=== PATIENT | female | born 1945 | race Caucasian/White ===

== ENCOUNTER 2018-06-24 08:33 | Outpatient (CLI) | payer MEDICARE, BC, SELFPAY ==
[2018-06-24 11:28] LABS: ALT 21 U/L (12-78); AST 15 U/L (15-37); Albumin 3.6 g/dL (3.4-5.0); Alkaline Phosphatase 102 U/L (46-116); Anion Gap 9.4 mmol/L (3-11); BUN 21 mg/dL (7-18); Bilirubin, Total 0.4 mg/dL (0.2-1.0); CO2 27.6 mmol/L (21.0-32.0); CREATININE 0.94 mg/dL (0.55-1.02); Chloride 103 mmol/L (98-107); Cholesterol 219 mg/dL (50-200); Estimated GFR 58.53 (mL/min/1.73m2); Glucose 89 mg/dL (70-100); HDL Cholesterol 56 mg/dL (40-60); LDL CHOLESTEROL 145 mg/dL (<100); Potassium 4.9 mmol/L (3.5-5.1); Sodium 140 mmol/L (136-145); Total Protein 6.8 g/dL (6.4-8.2); Triglyceride 85 mg/dL (30-150)
== END 2018-06-24 08:53 ==
PROVIDERS: PCP Physician Assistant Medical; Visit Provider Physician Assistant Medical
DX: E78.5 Hyperlipidemia, unspecified (principal); I10 Essential (primary) hypertension
CPT/HCPCS: 36415; 80053; 80061; 83721

== ENCOUNTER 2018-07-23 00:21 | Outpatient (CLI) | payer MEDICARE, BC, SELFPAY ==
--- NOTE | 2018-07-23 08:55 | DI.MAMMO_ITS ---
SYMPTOMS/DIAGNOSIS: SCREENING, HEALTH MAINTENANCE EXAM, Z00.8 MAMMOGRAM: Mammograms were interpreted according to the usual protocol including computer analysis with CAD system, tomosynthesis and C view imaging. The breasts are of moderate density with fairly symmetrical distribution of fibroglandular tissue. No dominant mass or clumped microcalcification is identified in either breast. Current examination is compared with the previous examinations including July 2017 and there has been no gross interval change in appearance in comparison with the previous studies. CONCLUSION: No specific evidence of malignancy at this time. Routine screening examinations are suggested at yearly intervals due to the family history of breast carcinoma. Category 1, breast density category B. MQSA ASSESSMENT OF FINDINGS: Negative. Category 1. Patient will receive a letter notifying them of these results. BI-RADS category B. There are scattered areas of fibroglandular density.
== END 2018-07-23 00:41 ==
PROVIDERS: PCP Physician Assistant Medical; Visit Provider Physician Assistant Medical
DX: Z12.31 Encounter for screening mammogram for malignant neoplasm of breast (principal); Z80.3 Family history of malignant neoplasm of breast
CPT/HCPCS: 77063; 77067

== ENCOUNTER 2019-01-15 14:39 | Emergency (ER) | payer MEDICARE, BC, SELFPAY ==
[2019-01-15] VITALS (15 sets, daily range): BP systolic 127–185; BP diastolic 73–96; PULSE 69–93; RESP 16–18; TEMP 37.1; O2SAT 95–100
[2019-01-15] MEDS: Ondansetron 4 MG/2 ML VIAL IVP (15:00)
[2019-01-15] MEDS: Acetaminophen 325 MG TAB 650 MG PO (15:40)
[2019-01-15] MEDS: Ketorolac 15 MG/ML VIAL IVP (15:40)
[2019-01-15] MEDS: fentaNYL 100 MCG/2 ML VIAL IVP (15:44)
--- NOTE | 2019-01-15 15:51 | ED.GENADUL_ITS ---
Discharge Plan Disposition Patient Disposition: HOME Condition: Improving Discharge Details Chief Complaint: Trauma Clinical Impression: Closed fracture of left clavicle, Multiple fractures of ribs, left side, initial encounter for closed fracture Primary Care Provider: Darlin Puckett ED Provider: Ian Ruiz Home Meds and New Rx's Prescriptions: New hydrocodone-acetaminophen 5-325 mg tablet 1 tab PO Q6H PRN (Reason: pain) Qty: 7 RF: 0 Continued simvastatin 40 MG tablet 40 mg PO .OTHER DAY RF: 0 omeprazole 20 MG capsule,delayed release(DR/EC) 20 mg PO DAILY RF: 0 cholecalciferol (vitamin D3) 1,000 UNIT tablet 1,000 unit PO BID RF: 0 calcium carbonate-vitamin D3 [Calcarb 600 With Vitamin D] 1 EACH tablet 1 ea PO BID RF: 0 Adults' Daily Formula (folic) 1 EACH tablet 1 tab-cap PO DAILY RF: 0 losartan [Cozaar] 50 MG tablet 50 mg PO DAILY RF: 0 Zyrtec 10 MG capsule 10 mg PO DAILY RF: 0 sertraline 100 MG tablet 1 tab PO DAILY RF: 0 ibuprofen [Advil] 200 MG tablet 600 mg PO DAILY RF: 0 Discharge Instructions Instructions: Clavicle Fracture (ED), Rib Fracture (ED) Additional Instructions: Use incentive spirometer as discussed with respiratory therapy. Wear sling when out of bed, may remove for bathing. We will make you follow-up referrals for both primary care and orthopedics. May use your prescribed Advil as needed for pain with either Tylenol or the prescribed hydrocodone if needed for additional pain control. Return for worsening discomfort, shortness of breath, fever, or any other acute concerns Discharge Data Discharge Date/Time-TO BE ENTERED AT DEPARTURE: 01/15/19 19:39 Medical Decision Making <YULIET Hodges - Last Filed: 01/16/19 19:09> Patient is a pleasant 73-year-old presenting today with chief complaint left shoulder pain. She reports that she jumped from a lawnmower that was rolling over. Landed on the left shoulder. Patient is endorsing left shoulder pain. She has a deformity along the midshaft clavicle. This is area of maximal discomfort. She also has has pain to palpation along the left lateral ribs. No palpable deformity or ecchymosis. Patient has a superficial abrasion to the right medial thigh and ecchymosis to the dorsum of the left foot. Patient is full range of motion of the neck, no midline tenderness. No spinal tenderness on exam. No abdominal pain. Lungs are clear in all urias. Remaining extremity exam is normal. Neuro exam is intact. Patient has good extension of the wrist on the affected side, sensation is intact. Plan to obtain x-rays of the patient's clavicle and CT of chest/ab/pelvis. Discussed this plan with the patient is in agreement Patient received 100 mics of fentanyl and continues to have pain particular with movement. We are able to stand her to use the restroom and is in the shoulder, she did quite well. We will augment this with Toradol and Tylenol. At the end of my shift, care transitioned to Dr. Ruiz with imaging pending. <Ian Ruiz MD - Last Filed: 01/15/19 20:35> I received signout from Ms. Hernandez pending receipt of images. Patient has a left clavicle fracture and left fifth and sixth rib fractures. Pain improving but still significant with movement. Anesthesia consulted for regional anesthesia to which the patient consented with good outcome. Patient will require a mild amount of narcotic analgesia for home. Incentive spirometry provided with instruction. She also has a 10 mm apical lung nodule for which we will make her a follow-up in clinic in which will need an interval recheck. She is stable and improved, appropriate discharge to home. HPI <YULIET Hodges - Last Filed: 01/16/19 19:09> General Mode of arrival: EMS . Date/Time Provider Initiated Documentation: 01/15/19 14:43 . Limitations to Documentation: no limitations . Information obtained by: patient, EMS and RN notes reviewed . HPI Narrative: Patient 73-year-old [id number] female presenting today with chief complaint of left shoulder pain. She is brought in via EMS after jumping off of her one more. Patient reports she was mowing her lawn when the lawnmower began to roll over an embankment. She jumped to the contralateral side and landed on her left shoulder. She denies striking her head, no loss conscious. Denies any headache. No visual changes. Denies any numbness or weakness. No incontinence. Patient denies pain elsewhere. EMS reports that patient has been splinting the left arm. She has refused to move the left arm. She denies any chest pain shortness of breath. No nausea or vomiting. No previous history of surgery or injury to this left shoulder Related Data Home Medications Medication Instructions Recorded Confirmed Adults' Daily Formula (folic) 1 tab-cap PO DAILY tab-cap 12/03/12 01/15/19 calcium carbonate-vitamin D3 1 ea PO BID 12/03/12 01/15/19 [Calcarb 600 With Vitamin D] cholecalciferol (vitamin D3) 1,000 unit PO BID 12/03/12 01/15/19 omeprazole 20 mg PO DAILY tab-cap 12/03/12 01/15/19 simvastatin 40 mg PO .OTHER DAY 12/03/12 01/15/19 Zyrtec 10 mg PO DAILY 08/09/17 01/15/19 losartan [Cozaar] 50 mg PO DAILY tab-cap 08/09/17 01/15/19 sertraline 1 tab PO DAILY 09/05/17 01/15/19 ibuprofen [Advil] 600 mg PO DAILY 09/09/17 01/15/19 hydrocodone-acetaminophen 1 tab PO Q6H PRN #7 tab 01/15/19 Previous Rx's Medication Instructions Recorded hydrocodone-acetaminophen 1 tab PO Q6H PRN #7 tab 01/15/19 Allergies Allergy/AdvReac Type Severity Reaction Status Date / Time hydromorphone AdvReac Severe severe Unverified 01/15/19 14:48 vomiting Review of Systems <YULIET Hodges - Last Filed: 01/16/19 19:09> Constitutional Reports as per HPI, Denies chills, Denies fatigue, Denies fever(s), Denies headache(s) and Denies weakness Eyes Reports as per HPI, Denies blurry vision, Denies change in vision and Denies loss of vision ENT Denies abnormal hearing and Denies headache(s) Cardiovascular Reports as per HPI, Denies chest pain and Denies dyspnea Respiratory Reports as per HPI, Denies cough, Denies pain on inspiration, Denies pain with cough and Denies dyspnea Gastrointestinal Reports as per HPI, Denies abdominal pain, Denies nausea and Denies vomiting Genitourinary Reports as per HPI and Denies urinary incontinence Musculoskeletal Reports as per HPI Integumentary/Breasts Reports as per HPI and Denies rash Neurologic Reports as per HPI, Denies abnormal hearing, Denies abnormal movements, Denies abnormal speech, Denies headache(s), Denies lack of coordination, Denies focal weakness, Denies loss of vision, Denies seizure-like activity, Denies paresthesias and Denies weakness Endocrine Denies fatigue PFSH <YULIET Hodges - Last Filed: 01/16/19 19:09> Medical History Benign hypertension Depression Gastroesophageal reflux disease Hyperlipidemia Osteoarthritis of knees, bilateral Osteoporosis Squamous cell carcinoma in situ of skin Surgical History Appendectomy Cholecystectomy Colonoscopy - MAC (09/09/17) Fracture, Closed Treatment (08/20/11) Fracture, Open Treatment (09/05/12) Ligation of fallopian tube Social History Smoking/Tobacco Use Status: Former Tobacco Use Alcohol Intake: never Drug use: Never Do you feel safe at home: Yes Do you feel safe in your relationship?: Yes Exam <YULIET Hodges - Last Filed: 01/16/19 19:09> Const General: cooperative, healthy appearing, uncomfortable (Patient appears unc omfortable, splinting left), no acute distress, well developed and well groomed Nutritional Appearance: well nourished and overweight Orientation: alert, awake and oriented x3 HENMT Head: normal to inspection, no palpable skull fracture, normocephalic and atraumatic Ears: hearing grossly normal bilaterally, external ears normal and TM's normal bilaterally General nose exam: external nose normal Mouth: oral mucosae normal, lip normal and tongue normal Throat: posterior oropharynx normal Eyes General: appearance normal, both eyes and all related structures Visual Urias: normal visual urias by confrontation Alignment and Position: alignment normal Periorbital: periorbital findings normal Eyelids: eyelids normal Conjunctivae: conjunctivae normal Pupils: PERRL EOM: EOM intact bilaterally Neck Neck: normal visual inspection, full ROM, no lymphadenopathy, no meningeal signs, trachea midline and supple Chest Chest: normal inspection of the chest, normal palpation of entire chest wall, no crepitus and localized rib tenderness with anteroposterior compression (Patient is tenderness on the left side of her chest wall, no crepitus, ecch) Resp Effort & Inspection: normal respiratory effort, able to speak in complete sentences and no respiratory distress Auscultation: clear to auscultation bilaterally, no rales, no rhonchi and no wheezes Cardio Rate: regular rate Rhythm: regular rhythm Heart Sounds: S1 normal and S2 normal GI Inspection: normal to inspection, no abdominal wall ecchymosis, no edema and non-distended Palpation: soft, no hepatosplenomegaly, not firm, no guarding, no pulsatile masses, not rigid and nontender Auscultation: normal bowel sounds Back/Spine/Pelvis Back: no CVA tenderness Cervical Spine: normal cervical lordosis and cervical ROM normal Thoracic/Lumbar Spine: thoracic and lumbar spine normal to inspection, thoraco- lumbar ROM normal, No thoraco-lumbar ROM limited, No thoraco-lumbar spasm and No thoracic spinal tenderness Pelvis: no pain with anterior-posterior compression and no pain with lateral compression Skin General skin exam: ecchymosis (Dorsal aspect left foot) Trauma: abrasion (Abrasion to the medial right thigh) Neuro General: alert, awake, oriented x3, gait normal, tone normal and moves all extremities Cranial Nerves: CN's II-XI intact bilaterally Cognition: normal cognition Speech: speech normal Gait: normal gait Motor: muscle tone normal throughout, strength 5/5 throughout, no pronator drift and no fasciculations Sensory Exam: no sensory deficits noted (no saddle paresthesias) Extrem General: normal capillary refill, no pedal edema and no calf tenderness Left upper extremity: normal capillary refill, shoulder/upper arm Details: abnormal to inspection Details: clavicle deformity, tenderness Location: of the clavicle; not of the A-C joint, not of the proximal humerus, not of the scapula, not of the mid-shaft humerus, not over the coracoid process, not over the biceps tendon, not over the subacromial bursa and not over the deltoid bursa, swelling Location: of the clavicle, axillary nerve sensory function normal and deformity; ROM limited (Limited shoulder), no abrasions, no lacerations, no ecchymosis, no crepitus, no foreign bodies, no penetrating wound and no unsual warmth, elbow/forearm Details: normal to inspection, wrist Details: normal to inspection and hand Details: normal to inspection, neuromotor exam normal and neurosensory exam normal; ROM limited (Patient splinting the left shoulder adduction) Right lower extremity: full ROM, normal capillary refill and no joint enlargement; abnormal to inspection (abrasion as above, no other abnormality) Left lower extremity: full ROM, normal capillary refill and no joint enlargement; abnormal to inspection (ecchymosis as above) Psych Appearance: grossly normal and well kempt Mental Status: mental status grossly normal Speech and Movement: speech and movement normal Sign Out <YULIET Hodges - Last Filed: 01/16/19 19:09> Sign Out Data: Sign Out Comment: care transitioned to Dr. Ruiz with imaging pending. Last updated by Henrietta Hernandez PA at 01/15/19 15:51
--- NOTE | 2019-01-15 16:05 | DI.RAD_ITS ---
SYMPTOM/DIAGNOSIS: TRAUMA, PALPABLE DEFECT LEFT CLAVICLE: There is a mid clavicle fracture which shows some comminution as well as overriding of fracture fragments. The AC joint and glenohumeral joint are grossly unremarkable except for degenerative spurring. IMPRESSION: Mid clavicle fracture.
--- NOTE | 2019-01-15 16:20 | DI.CT_ITS ---
SYMPTOM/DIAGNOSIS: TRAUMA, PAIN CHEST,. ABDOMEN AND PELVIS CT: The exam was performed without oral or IV contrast. CHEST: There is no evidence of pneumothorax, pleural or pericardial effusion. There is a fracture of the posterior left fifth rib and fracture of the lateral left sixth rib. There is a comminuted fracture in the mid left clavicle. There is a mild compression deformity of T 6 which is likely old. Degenerative changes are also seen in the spine. Streaky densities are seen in the lingula consistent with atelectasis. There is a more nodular density seen in the posterior aspect of the left upper lobe measuring 10 mm. The findings could be infectious, inflammatory or neoplastic. Follow up is recommended. IMPRESSION: Left fifth and sixth rib fractures and left clavicle fracture. No pneumothorax. Left upper lobe nodule may represent an inflammatory, infectious or neoplastic change. A follow up exam is recommended. ABDOMEN AND PELVIS: The patient is status post cholecystectomy. The liver, spleen, pancreas and adrenals are unremarkable. There is no free air or free fluid. The left kidney is smaller than the right and contains non obstructing stones. There is compensatory hypertrophy of the right kidney. The uterus, ovaries and bladder are unremarkable. There is no bowel dilatation or inflammatory change. No acute fractures are identified. Degenerative changes are noted in the spine. The aorta shows mild atherosclerotic changes. IMPRESSION: No acute abnormality.
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
[2019-01-15] MEDS: HYDROcodone 5/Acetaminophen 325 TAB PO ×2 (17:27→21:26)
[2019-01-15] MEDS: Bupivacaine 0.25% Pres-Free 10 ML VIAL (20:03)
[2019-01-15] MEDS: Bupivacaine LIPOSOME/PF 133 MG/10 ML VIAL IJ (20:13)
--- NOTE | 2019-01-16 08:15 | PDOC.ERCMPRO ---
Care Management Progress Note 01/16-Dr. Ruiz requested assistance with a PCP ([facility]) f/u in 10 days for 10 mm left lung module. Referral faxed to [facility] this am.
== END 2019-01-15 19:39 | disposition home or self-care (01) ==
PROVIDERS: Emergency Provider Emergency Medicine; PCP Physician Assistant Medical
DX: S22.42XA Multiple fractures of ribs, left side, initial encounter for closed fracture (principal); S42.022A Displaced fracture of shaft of left clavicle, initial encounter for closed fracture; W01.0XXA Fall on same level from slipping, tripping and stumbling without subsequent striking against object, initial encounter; I10 Essential (primary) hypertension
CPT/HCPCS: 71250; 96374; 96375; 99285; 73000; 74176; 99284; J1885; J2405; J3010; L3650

== ENCOUNTER 2019-01-29 09:08 | Outpatient (CLI) | payer MEDICARE, BC, SELFPAY ==
--- NOTE | 2019-01-29 09:03 | DI.RAD_ITS ---
SYMPTOMS/DIAGNOSIS: FRACTURE FOLLOW UP LEFT CLAVICLE: A comminuted displaced mid shaft fracture of the left clavicle is demonstrated with overriding of the fracture fragments.
== END 2019-01-29 09:28 ==
PROVIDERS: PCP Physician Assistant Medical; Referring Provider Physician Assistant Medical; Visit Provider Orthopaedic Surgery
DX: S42.022D Displaced fracture of shaft of left clavicle, subsequent encounter for fracture with routine healing (principal); X58.XXXD Exposure to other specified factors, subsequent encounter
CPT/HCPCS: 99211; 99213; 73000

== ENCOUNTER 2019-02-26 09:25 | Outpatient (CLI) | payer MEDICARE, BC, SELFPAY ==
--- NOTE | 2019-02-26 09:14 | DI.RAD_ITS ---
SYMPTOM/DIAGNOSIS: F/U LEFT CLAVICLE: 02/26 A single view was obtained and shows previously described mid-clavicular fracture with little if any interval change in alignment of the fracture fragments, comparison with examination of Jan 29 2019. There is little visible callus at the fracture site.
== END 2019-02-26 09:45 ==
PROVIDERS: PCP Physician Assistant Medical; Referring Provider Physician Assistant Medical; Visit Provider Orthopaedic Surgery
DX: S42.022A Displaced fracture of shaft of left clavicle, initial encounter for closed fracture (principal); X58.XXXA Exposure to other specified factors, initial encounter; I10 Essential (primary) hypertension
CPT/HCPCS: 99213; 73000

== ENCOUNTER 2019-04-09 11:25 | Outpatient (CLI) | payer MEDICARE, BC, SELFPAY ==
--- NOTE | 2019-04-09 08:37 | DI.RAD_ITS ---
SYMPTOM/DIAGNOSIS: F/U LEFT CLAVICLE: Two views were obtained and show a previously described comminuted, moderately displaced clavicular fracture with no gross interval change in alignment of the fracture fragments in comparison with previous examination of 02/26. There appears to be faint callous formation at the fracture site.
== END 2019-04-09 11:45 ==
PROVIDERS: PCP Physician Assistant Medical; Visit Provider Orthopaedic Surgery
DX: S42.002A Fracture of unspecified part of left clavicle, initial encounter for closed fracture (principal); X58.XXXA Exposure to other specified factors, initial encounter
CPT/HCPCS: 99213; 73000

== ENCOUNTER 2019-04-23 00:50 | Outpatient (CLI) | payer MEDICARE, BC, SELFPAY ==
[2019-04-23 14:19] LABS: CREATININE 1.11 mg/dL (0.55-1.02); Estimated GFR 48.18 (mL/min/1.73m2)
[2019-04-23] MEDS: Omnipaque 350 MG/ML 100 ML BTL IJ (14:35)
--- NOTE | 2019-04-23 15:00 | DI.CT_ITS ---
SYMPTOMS/DIAGNOSIS: PULMONARY NODULE, R91.1 CT SCAN OF THE CHEST: CT scan of the chest was performed following the uneventful administration of intravenous contrast material. Comparison examination is 01/15/19. The thoracic aorta is of normal caliber. The heart size is within normal limits. No significant pericardial effusion is seen. Coronary artery calcifications are present. No significant thoracic adenopathy is identified. There is no pleural effusion or pneumothorax. The esophagus is grossly unremarkable. There is scarring or atelectasis in the medial aspect of the right middle lobe and the left lingula. The nodular opacity in the left upper lobe has completely resolved. No pulmonary nodules are identified. The tracheobronchial tree is unremarkable. There is again seen a comminuted fracture of the left clavicle and multiple healing and healed left rib fractures. Age-related degenerative changes are seen in the spine. The nodularity seen of the left adrenal gland is unchanged. IMPRESSION: 1. Resolution of the left upper lobe nodular infiltrate. 2. No pulmonary nodules. 3. Healing and healed left clavicular and numerous left rib fractures.
== END 2019-04-23 01:10 ==
PROVIDERS: PCP Physician Assistant Medical; Visit Provider Physician Assistant Medical
DX: R91.1 Solitary pulmonary nodule (principal)
CPT/HCPCS: 71260; 82565; J3490

== ENCOUNTER 2019-05-06 11:53 | Outpatient (CLI) | payer MEDICARE, BC, SELFPAY ==
--- NOTE | 2019-05-06 11:21 | DI.RAD_ITS ---
SYMPTOMS/DIAGNOSIS: F/U FRACTURE LEFT CLAVICLE: Comparison is made with January,. There has been increased callus formation around the comminuted clavicle fracture. The alignment is unchanged when compared with the previous exam.
== END 2019-05-06 12:13 ==
PROVIDERS: PCP Physician Assistant Medical; Referring Provider Physician Assistant Medical; Visit Provider Orthopaedic Surgery
DX: S42.022A Displaced fracture of shaft of left clavicle, initial encounter for closed fracture (principal); X58.XXXA Exposure to other specified factors, initial encounter
CPT/HCPCS: 99213; 73000

== ENCOUNTER 2019-06-22 09:14 | Outpatient (REF) | payer MEDICARE, BC, SELFPAY ==
[2019-06-22 22:24] LABS: ALT 22 U/L (14-59); AST 17 U/L (15-37); Albumin 3.6 g/dL (3.4-5.0); Alkaline Phosphatase 126 U/L (46-116); Anion Gap 10.1 mmol/L (3-11); BUN 20 mg/dL (7-18); Bilirubin, Total 0.4 mg/dL (0.2-1.0); CO2 26.9 mmol/L (21.0-32.0); Calculated LDL 127 mg/dL; Chloride 105 mmol/L (98-107); Cholesterol 197 mg/dL (50-200); Estimated GFR 54.35 (mL/min/1.73m2); Glucose 95 mg/dL (70-100); HDL Cholesterol 48 mg/dL (40-60); Potassium 4.6 mmol/L (3.5-5.1); Sodium 142 mmol/L (136-145); Total Protein 6.8 g/dL (6.4-8.2); Triglyceride 114 mg/dL (30-150)
== END 2019-06-22 09:34 ==
LOC: NCHCN 09:14
PROVIDERS: PCP Physician Assistant Medical; Visit Provider Physician Assistant Medical
DX: E78.5 Hyperlipidemia, unspecified (principal); I10 Essential (primary) hypertension
CPT/HCPCS: 80053; 80061

== ENCOUNTER 2019-07-07 10:10 | Outpatient (CLI) | payer MEDICARE, BC, SELFPAY ==
--- NOTE | 2019-07-07 09:04 | DI.RAD_ITS ---
EXAM: XR CLAVICLE LT INDICATION: f/u fracture. COMPARISON: XR CLAVICLE LT from 05/06/2019 TECHNIQUE: 2D digital imaging was performed. FINDINGS: There has been no change in the alignment of the comminuted mid clavicle fracture. There is increase d callus formation. Spurring is again noted at the AC joint.
== END 2019-07-07 10:30 ==
PROVIDERS: PCP Physician Assistant Medical; Visit Provider Orthopaedic Surgery
DX: S42.022D Displaced fracture of shaft of left clavicle, subsequent encounter for fracture with routine healing (principal); X58.XXXD Exposure to other specified factors, subsequent encounter
CPT/HCPCS: 99213; 73000

== ENCOUNTER 2019-07-24 01:14 | Outpatient (CLI) | payer MEDICARE, BC, SELFPAY ==
--- NOTE | 2019-07-24 09:13 | DI.MAMMO_ITS ---
EXAM: MG MAMMO SCREENING CLINICAL HISTORY: HEALTHCARE MAINTENANCE EXAM Z00.8, SCREENING TECHNIQUE: Bilateral full field digital CC and MLO mammographic images were obtained with 3D tomosyn thesis and utilizing computer aided detection (CAD). COMPARISON: Available for comparison. FINDINGS: Masses/Architectural Distortion: None seen. Microcalcifications: No suspicious pleomorphic-type are seen. Skin Thickening/Nipple Retraction: None. IMPRESSION: 1. No significant interval change with no specific features of malignancy noted. 2. Unless there is more urgent need, screening mammography is recommended, as per [employer] guidelines. ACR BI-RAD Category- 1 Negative Breast Density - Category B - Scattered areas of fibroglandular density A negative radiographic report should not delay biopsy if a dominant or clinically suspicious mass is present. Up to ten percent of cancers are not identified on mammography. A negative report may reinforce clinical impression. Adenosis and dense breasts may obscure an underlying neoplasm. False positive reports average 6 to 10%. Patient will receive a letter notifying them of these results.
== END 2019-07-24 01:34 ==
PROVIDERS: PCP Physician Assistant Medical; Visit Provider Physician Assistant Medical
DX: Z12.31 Encounter for screening mammogram for malignant neoplasm of breast (principal)
CPT/HCPCS: 77063; 77067

== ENCOUNTER 2020-06-13 11:35 | Outpatient (REF) | payer MEDICARE, BC, SELFPAY ==
[2020-06-13 19:57] LABS: ALT 56 U/L (14-59); AST 34 U/L (15-37); Albumin 3.7 g/dL (3.4-5.0); Alkaline Phosphatase 112 U/L (46-116); Anion Gap 12.5 mmol/L (3-11); BUN 28 mg/dL (7-18); Bilirubin, Total 0.3 mg/dL (0.2-1.0); CO2 24.5 mmol/L (21.0-32.0); Calcium 8.6 mg/dL (8.5-10.1); Calculated LDL 185 mg/dL (<100); Chloride 100 mmol/L (98-107); Cholesterol 255 mg/dL (<200); Estimated GFR 43.91 (mL/min/1.73m2); Glucose 90 mg/dL (74-106); HDL Cholesterol 53 mg/dL (40-60); Potassium 4.4 mmol/L (3.5-5.1); Sodium 137 mmol/L (136-145); Triglyceride 86 mg/dL (<150)
== END 2020-06-13 11:55 ==
LOC: NCHCN 11:35
PROVIDERS: PCP Physician Assistant Medical; Visit Provider Physician Assistant Medical
DX: I10 Essential (primary) hypertension (principal); E78.5 Hyperlipidemia, unspecified
CPT/HCPCS: 80053; 80061

== ENCOUNTER 2020-07-25 01:27 | Outpatient (CLI) | payer MEDICARE, BC, SELFPAY ==
--- NOTE | 2020-07-25 | DI.MAMMO_ITS ---
EXAM: MAMMO SCREENING CLINICAL HISTORY: SCREENING,HEALTH MAINTENANCE EXAM,Z00.8 TECHNIQUE: Mammograms were interpreted according to the usual protocol including computer analysis w [email or web address] CAD system, tomosynthesis and C-view imaging. COMPARISON: 2010 through 2018 FINDINGS: The breasts are composed of scattered fibroglandular densities, Breast Density category B. No suspicious masses or suspicious microcalcifications are seen. No skin thickening or abnormal axillary lymph nodes are seen. There has been no significant change from prior exams. IMPRESSION: BI-RADS Category 1, Negative mammogram Yearly screening mammography is recommended. Breast Density - Category B, scattered fibroglandular densities. A negative radiographic report should not delay biopsy if a dominant or clinically suspicious mass is present. Up to ten percent of cancers are not identified on mammography. A negative report may reinforce clinical impression. Adenosis and dense breasts may obscure an underlying neoplasm. False positive reports average 6 to 10%. Patient will receive a letter notifying them of these results.
== END 2020-07-25 01:47 ==
PROVIDERS: PCP Physician Assistant Medical; Visit Provider Physician Assistant Medical
DX: Z12.31 Encounter for screening mammogram for malignant neoplasm of breast (principal)
CPT/HCPCS: 77063; 77067

== ENCOUNTER 2020-09-12 10:49 | Outpatient (REF) | payer MEDICARE, BC, SELFPAY ==
[2020-09-12 15:42] LABS: ALT 42 U/L (14-59); AST 26 U/L (15-37); Albumin 3.7 g/dL (3.4-5.0); Alkaline Phosphatase 99 U/L (46-116); Anion Gap 8.6 mmol/L (3-11); BUN 24 mg/dL (7-18); Bilirubin, Total 0.4 mg/dL (0.2-1.0); CO2 26.4 mmol/L (21.0-32.0); CREATININE 1.24 mg/dL (0.55-1.02); Calcium 8.9 mg/dL (8.5-10.1); Calculated LDL 119 mg/dL (<100); Chloride 104 mmol/L (98-107); Cholesterol 187 mg/dL (<200); Estimated GFR 42.28 (mL/min/1.73m2); Glucose 92 mg/dL (74-106); HDL Cholesterol 50 mg/dL (40-60); Potassium 4.6 mmol/L (3.5-5.1); Sodium 139 mmol/L (136-145); Triglyceride 92 mg/dL (<150)
== END 2020-09-12 11:09 ==
LOC: NCHCN 10:49
PROVIDERS: PCP Physician Assistant Medical; Visit Provider Physician Assistant Medical
DX: E78.5 Hyperlipidemia, unspecified (principal); I10 Essential (primary) hypertension
CPT/HCPCS: 80053; 80061

== ENCOUNTER 2021-03-29 13:21 | Outpatient (REF) | payer MEDICARE, BC, SELFPAY ==
[2021-03-29 15:13] LABS: Anion Gap 9.4 mmol/L (3-11); BUN 29 mg/dL (7-18); CO2 25.6 mmol/L (21.0-32.0); CREATININE 1.4 mg/dL (0.55-1.02); Calcium 8.9 mg/dL (8.5-10.1); Chloride 106 mmol/L (98-107); Estimated GFR 36.66 (mL/min/1.73m2); Glucose 99 mg/dL (74-106); Potassium 4.9 mmol/L (3.5-5.1); Sodium 141 mmol/L (136-145)
== END 2021-03-29 13:22 | disposition home or self-care (01) ==
LOC: NCHCN 13:21
PROVIDERS: PCP Physician Assistant Medical; Visit Provider Physician Assistant Medical
DX: I10 Essential (primary) hypertension (principal)
CPT/HCPCS: 80048

== ENCOUNTER 2021-04-14 14:45 | Outpatient (REF) | payer MEDICARE, BC, SELFPAY ==
[2021-04-14 14:44] LABS: Anion Gap 9.7 mmol/L (3-11); BUN 24 mg/dL (7-18); CO2 23.3 mmol/L (21.0-32.0); CREATININE 1.3 mg/dL (0.55-1.02); Calcium 9.1 mg/dL (8.5-10.1); Chloride 104 mmol/L (98-107); Estimated GFR 39.93 (mL/min/1.73m2); Glucose 103 mg/dL (74-106); Sodium 137 mmol/L (136-145)
== END 2021-04-14 14:46 | disposition home or self-care (01) ==
LOC: NCHCN 14:45
PROVIDERS: PCP Physician Assistant Medical; Visit Provider Physician Assistant Medical
DX: N18.30 Chronic kidney disease, stage 3 unspecified (principal)
CPT/HCPCS: 80048

== ENCOUNTER 2021-06-14 12:44 | Outpatient (REF) | payer MEDICARE, BC, SELFPAY ==
[2021-06-16 00:08] LABS: COVID-19 RT-PCR UVMMC Result Negative (Negative)
== END 2021-06-14 12:45 | disposition home or self-care (01) ==
LOC: NCHCN 12:44
PROVIDERS: PCP Physician Assistant Medical; Visit Provider Physician Assistant Medical
DX: Z20.822 Contact with and (suspected) exposure to COVID-19 (principal); J06.9 Acute upper respiratory infection, unspecified
CPT/HCPCS: U0003; U0005

== ENCOUNTER 2021-06-16 09:26 | Outpatient (CLI) | payer MEDICARE, BC, SELFPAY ==
--- NOTE | 2021-06-16 13:04 | DI.RAD_ITS ---
Exam(s) XR CHEST 2V PA LATERAL EXAM: XR CHEST 2V PA LATERAL CLINICAL HISTORY: ACUTE BRONCHITIS J20.9, COVID NEG 06/06/21 AND 06/14/21 TECHNIQUE: 2D digital imaging was performed. COMPARISON: CT CT CHEST W from 04/23/2019 FINDINGS: MEDIASTINUM: Normal. HEART: Normal. PULMONARY VASCULATURE: Normal. LUNGS: Clear. PLEURAL SPACE: No pleural effusion or pneumothorax. BONE:Unremarkable for age. IMPRESSION: No acute abnormality. DATA REPOSITORY: RADIATION DOSE DELIVERED:
== END 2021-06-16 09:46 ==
PROVIDERS: PCP Physician Assistant Medical; Visit Provider Physician Assistant Medical
DX: J20.9 Acute bronchitis, unspecified (principal)
CPT/HCPCS: 71046

== ENCOUNTER 2021-06-30 13:26 | Outpatient (REF) | payer MEDICARE, BC, SELFPAY ==
[2021-06-30 14:32] LABS: Anion Gap 8.3 mmol/L (3-11); BUN 25 mg/dL (7-18); CO2 27.7 mmol/L (21.0-32.0); CREATININE 1.4 mg/dL (0.55-1.02); Calcium 9.1 mg/dL (8.5-10.1); Chloride 106 mmol/L (98-107); Estimated GFR 36.66 (mL/min/1.73m2); Glucose 84 mg/dL (74-106); Potassium 4.5 mmol/L (3.5-5.1); Sodium 142 mmol/L (136-145)
== END 2021-06-30 13:27 | disposition home or self-care (01) ==
LOC: NCHCN 13:26
PROVIDERS: PCP Physician Assistant Medical; Visit Provider Physician Assistant Medical
DX: N18.30 Chronic kidney disease, stage 3 unspecified (principal)
CPT/HCPCS: 80048

== ENCOUNTER 2022-04-30 18:48 | Outpatient (REF) | payer MEDICARE, BC, SELFPAY ==
[2022-04-30 19:13] LABS: HCT 40.4 % (36.0-46.0); HGB 13.2 g/dL (11.2-15.7); MCH 29.7 pg (27.0-33.0); MCHC 32.7 % (32.0-36.0); MCV 91 fL (80-95); MPV 10.5 fL (8.0-11.0); Platelet Count 264 10^3/uL (130-400); RBC 4.45 10^6/uL (3.93-5.22); RDW 12.2 % (11.7-14.6); RDW-SD 39.9 fL; WBC 6.92 10^3/uL (4.4-10.8)
[2022-04-30 19:27] LABS: ALT 31 U/L (14-59); AST 30 U/L (15-37); Albumin 3.6 g/dL (3.4-5.0); Alkaline Phosphatase 96 U/L (46-116); Anion Gap 9.5 mmol/L (3-11); BUN 27 mg/dL (7-18); Bilirubin, Total 0.2 mg/dL (0.2-1.0); CO2 27.5 mmol/L (21.0-32.0); CREATININE 1.2 mg/dL (0.55-1.02); Calculated LDL 113 mg/dL (<100); Chloride 106 mmol/L (98-107); Cholesterol 194 mg/dL (<200); Estimated GFR 46.91 (mL/min/1.73m2); Glucose 88 mg/dL (74-106); HDL Cholesterol 56 mg/dL (40-60); Potassium 5.3 mmol/L (3.5-5.1); Sodium 143 mmol/L (136-145); Total Protein 7.5 g/dL (6.4-8.2); Triglyceride 125 mg/dL (<150)
== END 2022-04-30 18:49 | disposition home or self-care (01) ==
LOC: NCHCN 18:48
PROVIDERS: PCP Physician Assistant Medical; Visit Provider Physician Assistant Medical
DX: E78.5 Hyperlipidemia, unspecified (principal)
CPT/HCPCS: 80053; 80061; 85027

== ENCOUNTER 2022-05-30 09:59 | Outpatient (REF) | payer MEDICARE, BC, SELFPAY ==
[2022-05-30 16:57] LABS: Anion Gap 7.2 mmol/L (3-11); BUN 28 mg/dL (7-18); CO2 25.8 mmol/L (21.0-32.0); CREATININE 1.4 mg/dL (0.55-1.02); Calcium 8.9 mg/dL (8.5-10.1); Chloride 106 mmol/L (98-107); Estimated GFR 38.99 (mL/min/1.73m2); Glucose 92 mg/dL (74-106); Potassium 4.5 mmol/L (3.5-5.1); Sodium 139 mmol/L (136-145)
== END 2022-05-30 10:00 | disposition home or self-care (01) ==
LOC: NCHCN 09:59
PROVIDERS: PCP Physician Assistant Medical; Visit Provider Physician Assistant Medical
DX: N18.30 Chronic kidney disease, stage 3 unspecified (principal)
CPT/HCPCS: 80048

== ENCOUNTER 2022-11-27 17:18 | Outpatient (REF) | payer MEDICARE, BC, SELFPAY ==
[2022-11-27 17:43] LABS: Anion Gap 7.8 mmol/L (3-11); BUN 28 mg/dL (7-18); CO2 28.2 mmol/L (21.0-32.0); CREATININE 1.5 mg/dL (0.55-1.02); Calcium 8.9 mg/dL (8.5-10.1); Chloride 108 mmol/L (98-107); Estimated GFR 35.67 (mL/min/1.73m2); Glucose 119 mg/dL (74-106); Potassium 4.7 mmol/L (3.5-5.1); Sodium 144 mmol/L (136-145)
== END 2022-11-27 17:19 | disposition home or self-care (01) ==
LOC: NCHCN 17:18
PROVIDERS: PCP Physician Assistant Medical; Visit Provider Physician Assistant Medical
DX: I10 Essential (primary) hypertension (principal); N18.30 Chronic kidney disease, stage 3 unspecified
CPT/HCPCS: 80048

== ENCOUNTER 2023-05-28 17:51 | Outpatient (REF) | payer MEDICARE, BC, SELFPAY ==
[2023-05-28 15:59] LABS: ALT 27 U/L (14-59); AST 18 U/L (15-37); Albumin 3.7 g/dL (3.4-5.0); Alkaline Phosphatase 108 U/L (46-116); Anion Gap 5.3 mmol/L (3-11); BUN 30 mg/dL (7-18); Bilirubin, Total 0.3 mg/dL (0.2-1.0); CO2 28.7 mmol/L (21.0-32.0); CREATININE 1.2 mg/dL (0.55-1.02); Calcium 9.2 mg/dL (8.5-10.1); Calculated LDL 124 mg/dL (<100); Chloride 104 mmol/L (98-107); Cholesterol 196 mg/dL (<200); Estimated GFR 46.62 (mL/min/1.73m2); Glucose 95 mg/dL (74-106); HDL Cholesterol 50 mg/dL (40-60); Magnesium 2.1 mg/dL (1.8-2.4); Potassium 4.8 mmol/L (3.5-5.1); Sodium 138 mmol/L (136-145); Total Protein 7.3 g/dL (6.4-8.2); Triglyceride 111 mg/dL (<150)
[2023-05-28 16:23] LABS: Vitamin D 25 Total 68.8 ng/mL (30-100)
== END 2023-05-28 17:52 | disposition home or self-care (01) ==
LOC: NCHCN 17:51
PROVIDERS: PCP Physician Assistant Medical; Visit Provider Physician Assistant Medical
DX: I10 Essential (primary) hypertension (principal); E78.5 Hyperlipidemia, unspecified; E55.9 Vitamin D deficiency, unspecified
CPT/HCPCS: 80053; 80061; 82306; 83735

== ENCOUNTER 2023-11-26 18:22 | Outpatient (REF) | payer MEDICARE, BC, SELFPAY ==
[2023-11-26 15:51] LABS: Abs Immature Grans 0.02 10^3/uL (0.0-0.06); Absolute Basophil Count 0.02 10^3/uL (0.0-0.2); Absolute Eosinophil Count 0.12 10^3/uL (0.0-0.7); Absolute Lymphocyte Count 1.18 10^3/uL (1.2-3.4); Absolute Monocyte Count 0.45 10^3/uL (0.1-0.8); Basophils % 0.3; Eosinophils % 1.9; HCT 38.9 % (36.0-46.0); HGB 12.9 g/dL (11.2-15.7); Immature Grans % 0.3; Lymphocytes % 19.1; MCH 29.3 pg (27.0-33.0); MCHC 33.2 % (32.0-36.0); MCV 88 fL (80-95); MPV 10.4 fL (8.0-11.0); Monocytes % 7.3; Neutrophils % 71.1; Platelet Count 263 10^3/uL (130-400); RDW 12.3 % (11.7-14.6); RDW-SD 40.1 fL; WBC 6.19 10^3/uL (4.4-10.8)
[2023-11-26 16:01] LABS: Anion Gap 9.7 mmol/L (3-11); BUN 31 mg/dL (7-18); CO2 25.3 mmol/L (21.0-32.0); CREATININE 1.3 mg/dL (0.55-1.02); Calcium 8.8 mg/dL (8.5-10.1); Chloride 105 mmol/L (98-107); Estimated GFR 42.09 (mL/min/1.73m2); Glucose 95 mg/dL (74-106); Potassium 4.6 mmol/L (3.5-5.1); Sodium 140 mmol/L (136-145)
== END 2023-11-26 18:23 | disposition home or self-care (01) ==
LOC: NCHCN 18:22
PROVIDERS: PCP Physician Assistant Medical; Referring Provider Physician Assistant Medical; Visit Provider Physician Assistant Medical
DX: N18.30 Chronic kidney disease, stage 3 unspecified (principal)
CPT/HCPCS: 80048; 85025

== ENCOUNTER → 2023-11-28 03:06 | Outpatient (CLI) | payer MEDICARE, BC, SELFPAY ==
--- NOTE | 2023-11-28 12:55 | DI.MAMMO_ITS ---
Exam(s) MAMMO SCREENING EXAM: MAMMO SCREENING CLINICAL HISTORY: SCREENING, Z12.31 TECHNIQUE: Bilateral full field digital CC and MLO mammographic images were obtained with 3D tomosyn thesis and utilizing computer aided detection (CAD). COMPARISON: Available for comparison. FINDINGS: Masses/Architectural Distortion: None seen. Microcalcifications: No suspicious pleomorphic-type are seen. Skin Thickening/Nipple Retraction: None. IMPRESSION: 1. No significant interval change with no specific features of malignancy noted. 2. Unless there is more urgent need, screening mammography is recommended, as per [employer] [place] [employer] guidelines. BI-RADS Category 1 - Negative Breast Density - Category B - Scattered areas of fibroglandular density Breast density category C or D implies that the patient has dense breast tissue. Dense breast tissue is very common and is not abnormal but dense breast tissue can make it harder to find cancer on a ma mmogram. Also, dense breast tissue may increase their breast cancer risk. This information about the result of the mammogram report was provided to the patient to raise their awareness. Use this report when you speak with the patient about their risks for breast cancer, which includes their family hist ory. At that time, you may recommend for more screening tests (Ultrasound or MRI) as they might be us eful based on their risk. A negative radiographic report should not delay biopsy if a dominant or clinically suspicious mass is present. Up to ten percent of cancers are not identified on mammography. A negative report may reinforce clinical impression. Adenosis and dense breasts may obscure an underlying neoplasm. False positive reports average 6 to 10%. Patient will receive a letter notifying them of these results.
== END ==
PROVIDERS: PCP Physician Assistant Medical; Visit Provider Physician Assistant Medical
DX: Z12.31 Encounter for screening mammogram for malignant neoplasm of breast (principal)
CPT/HCPCS: 77063; 77067

== ENCOUNTER 2024-02-03 12:56 | Outpatient (REF) | payer MEDICARE, BC, SELFPAY ==
[2024-02-03 15:50] LABS: Anion Gap 9.6 mmol/L (3-11); BUN 31 mg/dL (7-18); CO2 26.4 mmol/L (21.0-32.0); CREATININE 1.3 mg/dL (0.55-1.02); Chloride 105 mmol/L (98-107); Estimated GFR 42.09 (mL/min/1.73m2); Glucose 106 mg/dL (74-106); Potassium 4.5 mmol/L (3.5-5.1); Sodium 141 mmol/L (136-145)
== END 2024-02-03 12:57 | disposition home or self-care (01) ==
LOC: NCHCN 12:56
PROVIDERS: PCP Physician Assistant Medical; Visit Provider Physician Assistant Medical
DX: I10 Essential (primary) hypertension (principal)
CPT/HCPCS: 80048

== ENCOUNTER 2024-06-10 18:26 | Outpatient (REF) | payer MEDICARE, BC, SELFPAY ==
--- OUTSIDE RECORDS SUMMARY | 2024-06-10 18:27 | XMS_ITS | Data Portability ---
Author Organization [place] - [facility] [place] [address] Care Team Providers Care Business Banking Representative Name Role Phone ZAIN GREENAubrey Primary Care Provider Assessment Encounter Date Assessment Date Assessment LastModified by Organization Details LastModified Time 05/23/2024 05/23/2024 Suspected Insect Bites or Contact Dermatitis - Assessment: Patient presents with itchy skin lesions, unsure if they are bug bites or not. No history of exposure to poison mk or bed bugs. Has been using tea tree oil for relief and tried topical Benadryl with minimal effect. - Plan: a. Continue using tea tree oil for symptomatic relief. b. If itching becomes severe, consider taking oral Benadryl as needed. c. Monitor for any new spots or worsening of the lesions. Possible Mild Staph Infection - Assessment: Some lesions appear to be in areas prone to moisture and irritation, such as near her breast. - Plan: a. Apply a topical antibiotic to the affected area, especially the spot near her breast. b. Keep the area clean and dry. c. Monitor for any signs of infection, such as increased redness, swelling, or discharge. d. If the condition worsens, consider a follow-up visit for further evaluation. Irritation from Environmental Exposure - Assessment: Patient has been engaging in outdoor activities, such as cutting tapia and weed whacking, which may have caused skin irritation from grass or debris. - Plan: a. Avoid direct contact with potential irritants and wear protective clothing when engaging in outdoor activities. b. Keep the skin clean and moisturized to prevent further irritation. c. Monitor for any new or worsening skin reactions. [email or web address] Not available 05/23/2024 11:02:41 Plan of Treatment Reminders Order Date Submit Date Provider Last Modified By Organization Details Last Modified Time Details Appointments Medicare Annual Wellness 40 2023 05:00P M MERVAT GREEN Not available Not available Not available Follow Up 30 2024 01:00P Gerhard GREEN Not available Not available Not available Lab BMP, serum or plasma 2023 [facility] (Registration ), [address] [place] [address] [place], [address], 02/03/2024 12:10:41 Referral None recorded. Procedures None recorded. Surgeries None recorded. Imaging None recorded. Medication Orders chlorthal idone 25 mg tablet 2023 [facility], [address] [place] [address], [facility], [place], [address], 01/15/2024 14:14:54 Patient TargetsNo targets recorded. Patient Instructions Encounter Date Encounter Id Patient Instructions Last Modified By Organization Details Last Modified Time 05/23/2024 [id number] Date: [Current Date] Dear Minal, Thank you for visiting my office today. I appreciate your commitment to addressing your health concerns promptly. Here are the villegas instructions and recommendations from our consultation: - Continue using tea tree oil if you find it helpful for managing itchiness. - If the itching becomes severe, consider using oral Benadryl as previously discussed. - For any new spots that appear scabby, apply a topical antibiotic to prevent possible infection. - Monitor the affected areas for any changes or worsening of symptoms. Please keep an eye on your symptoms and do not hesitate to contact us if there are any new developments or if your condition does not improve. Best regards, Nolan Mercado MD Family Medicine [email or web address] Not available 05/23/2024 11:02:41 Reason for Referral None Reported. Results Created Date Observation Date Name Description Value Unit Range Abnormal Flag Note LastModifiedBy Organization Detail LastModifiedTime 02/03/20 24 02/03/2024 BASIC METAB OLIC PANEL calcium 9.0 mg/dL 8.5-10 .1 normal Not Available [place] [address] [facility] , [place], [address] 02/03/2024 15:55:39 02/03/20 24 02/03/2024 BASIC METAB OLIC PANEL glucose 106 mg/dL 74-106 normal Not Available Dakota asencio [address] [place], [address] 02/03/2024 15:55:39 02/03/20 24 02/03/2024 BASIC METAB OLIC PANEL BUN 31 mg/dL 7-18 high Not Available [place] [address] [place], [address] 02/03/2024 15:55:39 02/03/20 24 02/03/2024 BASIC METAB OLIC PANEL creatinine 1.3 mg/dL 0.55-1 .02 high Not Available [address] [place], [address] 02/03/2024 15:55:39 02/03/20 24 02/03/2024 BASIC METAB OLIC PANEL estimated GFR 42.09 mL/min /1.73m 2 The eGFR is calcu lated from a serum creat inine using the CKD-E PI 2020 equat ion. Other varia bles requi red for the equat ion are gende r and age; this equat ion does not inclu de a race coeff icien t. This equat ion has simil ar overa ll perfo rmanc e to previ ous equat ions excep t value s may diffe r, in parti cular , in patie nts with highe r value s of eGFR and young er-ag ed adult s. Not Available [address] [place], [address] 02/03/2024 15:55:39 02/03/20 24 02/03/2024 BASIC METAB OLIC PANEL sodium 141 mmol/ L 136-14 5 normal Not Available [address] [place], [address] 02/03/2024 15:55:39 02/03/20 24 02/03/2024 BASIC METAB OLIC PANEL potassium 4.5 mmol/ L 3.5-5. 1 normal Not Available [address] [place], [address] 02/03/2024 15:55:39 02/03/20 24 02/03/2024 BASIC METAB OLIC PANEL chloride 105 mmol/ L 98-107 normal Not Available [place] [address] [facility] [place], [address] 02/03/2024 15:55:39 02/03/20 24 02/03/2024 BASIC METAB OLIC PANEL CO2 26.4 mmol/ L 21.0-3 2.0 normal Not Available [place] [address] [facility] [place], [address] 02/03/2024 15:55:39 02/03/20 24 02/03/2024 BASIC METAB OLIC PANEL anion gap 9.6 mmol/ L 3-11 normal Not Available [place] [address] [facility] [place], [address] 02/03/2024 15:55:39 05/17/20 24 06/23/2020 DEXA No observ ation record ed. Not Available 05/17 21:32:44 05/17/20 24 06/16/2021 XR, chest No observ ation record ed. Not Available 05/17 21:34:17 05/17/20 24 01/15/2019 CT, chest No observ ation record ed. Not Available 05/17 21:34:17 05/17/20 24 04/23/2019 CT, chest No observ ation record ed. Not Available 05/17 21:34:19 05/17/20 24 07/24/2019 MAMMO , scree isela No observ ation record ed. Not Available 05/17 21:34:20 05/17/20 24 07/25/2020 MAMMO , scree isela No observ ation record ed. Not Available 05/17 21:34:21 05/17/20 24 01/15/2019 imagi ng/di agnos tic resul t No observ ation record ed. Not Available 05/17 21:34:24 05/17/20 24 01/16/2019 imagi ng/di agnos tic resul t No observ ation record ed. Not Available 05/17 21:34:25 05/17/20 24 01/29/2019 imagi ng/di agnos tic resul t No observ ation record ed. Not Available 05/17 21:34:27 05/17/20 24 02/26/2019 imagi ng/di agnos tic resul t No observ ation record ed. Not Available 05/17 21:34:28 05/17/20 24 04/09/2019 imagi ng/di agnos tic resul t No observ ation record ed. Not Available 05/17 21:34:29 05/17/20 24 05/06/2019 imagi ng/di agnos tic resul t No observ ation record ed. Not Available 05/17 21:34:30 05/17/20 24 07/07/2019 imagi ng/di agnos tic resul t No observ ation record ed. Not Available 05/17 21:34:31 05/17/20 24 01/16/2019 imagi ng/di agnos tic resul t No observ ation record ed. Not Available 05/17 21:34:32 Result Notes None recorded. Problems Name Problem SNOMED Code Status Onset Date Resolution Date Notes Provider Name and Address Organization Details Recorded Time Major depressi on, single episode 53986783 Active 201004/30/20 22 - Comments only - Mervat Green PA-C - - DEPRESSI ON Mood stable on ZOLOFT 150mg QD. Problem Code: F32.9; Problem Code Type: ICD-10; Not Available [facility] 3 05:12:14 Herpes zoster 3857111 Completed 201206/18/2013 Problem Code: 053.9; Problem Code Type: ICD-9; Not Available [facility] 3 05:12:14 Closed fracture of radius 464784515 Completed 201206/18/2013 Problem Code: 813.81; Problem Code Type: ICD-9; Not Available [facility] 3 05:12:14 Essentia l hyperten alma rosa 27832883 Active 201011/28/19 23 - Comments only - Mervat Green PA-C - Today's BP at goal on BENICAR 40mg QD and ATENOLOL 25mg QD. Repeat BMP collecte d today as isidoro duron. Problem Code: I10; Problem Code Type: ICD-10; Not Available [facility] 3 05:12:14 Hyperlip idemia 39593114 Active 201011/28/19 23 - Comments only - Mervat Green PA-C - - HYPERLIP IDEMIA Maintain ed on CRESTOR 5mg QD Problem Code: E78.5; Problem Code Type: ICD-10; Not Available [facility] 3 05:12:14 Gastroes ophageal reflux disease without esophagi tis 626262530 Active 201005/30/20 22 - Improved - Mervat Green PA-C - To continue on NEXIUM 40mg QD. Problem Code: K21.9; Problem Code Type: ICD-10; Not Available [facility] 3 05:12:14 Senile osteopor osis 11608916 Active 201006/21/20 15 - Comments only - Mervat Green PA-C - As above, patient declines for repeat DEXA as chayo duron. Addition ally, she remains unintere sted in bisphosp honate therapy at this time. 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 Minal intends to pursue COVID booster when availabl e. Declines SHINGRIX and/or PSV23. Problem Code: Z00.8; Problem Code Type: ICD-10; Not Available [facility] 3 05:12:15 Chronic kidney disease stage 3 599379368 Active 202004/30/20 22 - Comments only - Mervat Green PA-C - - HTN, CKD Repeat CMP collecte d today as monitori ng. While awaiting results of same, patient to continue on combinat ion of BENICAR 40mg QD and ATENOLOL 25mg QD. Problem Code: N18.30; Problem Code Type: ICD-10; Not Available [facility] 3 05:12:15 Acute bronchit is 55267205 Completed 202006/28/2021 06/14/20 21 - Comments only - Mervat Green PA-C - COVID swab repeated today in accordan ce with protocol . While awaiting results, however, Minal was encourag ed to begin on ZITHROMA X as ZPAK and PREDNISO NE 40mg QD x 5d. Problem Code: J20.9; Problem Code Type: ICD-10; Not Available [facility] 3 05:12:15 Disorder of skin and/or subcutan eous tissue 05497184 Completed 202105/14/2022 04/30/20 22 - Comments only - Mervat Green PA-C - As per patient request, will refer to [facility] Problem Code: L98.9; Problem Code Type: ICD-10; Not Available [facility] 3 05:12:15 Cough 64143850 Completed 202106/13/2022 Problem Code: R05.8; Problem Code Type: ICD-10; Not Available [facility] 3 05:12:15 Obesity 682124471 Active 202211/28/19 23 - Comments only - Mervat Green PA-C - BMI 32. Patient commende d on weight loss efforts through intermit tent fasting. Problem Code: E66.9; Problem Code Type: ICD-10; Not Available [facility] 3 05:12:15 Herpes zoster 1347657 Completed 202206/02/2023 Problem Code: B02.9; Problem Code Type: ICD-10; Not Available [facility] 4 05:36:31 Acquired trigger finger 0741475 Completed 201206/28/2017 Problem Code: 727.03; Problem Code Type: ICD-9; Not Available [facility] 3 05:12:22 Atrophic vulva 367557305 Completed 201206/28/2017 Not Available [facility] 3 05:12:23 Hyperten sive disorder 48697424 Completed 201006/21/2015 Not Available [facility] 3 05:12:23 Cholecys tectomy Completed 201106/28/2017 Not Available [facility] 3 05:12:23 Solitary nodule of lung 043975965 Completed 201806/12/2019 Problem Code: R91.1; Problem Code Type: ICD-10; Not Available [facility] 3 05:12:24 Osteopor osis 88217358 Completed 201005/29/2023 Problem Code: 733.00; Problem Code Type: ICD-9; Not Available [facility] 3 05:12:24 Traumati c or non-trau matic injury 275174280 Completed 201809/12/2020 Problem Code: T14.8xxD ; Problem Code Type: ICD-10; Not Available [facility] 3 05:12:25 History of clinical finding in subject 079533890 Completed 201006/28/2017 Not Available [facility] 3 05:12:26 Tongue swelling 138883250 Completed 201506/27/2016 Not Available [facility] 3 05:12:27 Depressi ve disorder 81531571 Completed 201005/29/2023 06/21/20 15 - Comments only - Mervat Green PA-C - Well maintain ed on ZOLOFT 100mg QD. Not Available [facility] 3 05:12:28 Tubal ligation done 03677088288 108 Completed 201105/29/2023 Not Available [facility] 3 05:12:30 Closed fracture of multiple left ribs 46197525462 887422 Completed 201806/12/2019 Problem Code: S22.42xA ; Problem Code Type: ICD-10; Not Available [facility] 3 05:12:30 Closed fracture of left clavicle 13699201557 643182 Completed 201809/12/2020 Problem Code: S42.002A ; Problem Code Type: ICD-10; Not Available [facility] 3 05:12:31 Dysuria 98717742 Completed 201706/12/2019 Problem Code: R30.0; Problem Code Type: ICD-10; Not Available [facility] 3 05:12:31 Cough 13911075 Completed 201406/27/2016 Problem Code: R05; Problem Code Type: ICD-10; Not Available [facility] 3 05:12:32 Degenera tive joint disease involvin g multiple joints 398163823 Completed 201105/29/2023 Problem Code: 715.00; Problem Code Type: ICD-9; Not Available [facility] 3 05:12:32 Pain of right knee joint 08810247800 4100 Completed 201506/28/2017 Problem Code: M25.561; Problem Code Type: ICD-10; Not Available [facility] 3 05:12:32 Sialolit hiasis 08638758 Completed 201501/09/2016 Problem Code: K11.5; Problem Code Type: ICD-10; Not Available [facility] 3 05:12:32 Carcinom a in situ of skin 01597460 Completed 201609/12/2020 Problem Code: D04.9; Problem Code Type: ICD-10; Not Available [facility] 3 05:12:33 Gastro-e sophagea l reflux disease with esophagi tis 506274661 Completed 201005/29/2023 Not Available [facility] 3 05:12:34 Bilatera l hearing loss 45703226 Active 2022 Problem Code: H91.93; Problem Code Type: ICD-10; Not Available [facility] 4 05:36:29 History of fall 505731939 Active 202206/02/20 23 - Comments only - Mervat Green PA-C - As per patient request, will refer to PT for gait training /conditi oning. Problem Code: Z91.81; Problem Code Type: ICD-10; Not Available [facility] 4 05:36:29 Vitamin D deficien cy 41040567 Active 2022 Problem Code: E55.9; Problem Code Type: ICD-10; Not Available [facility] 4 05:36:29 Localize d eruption of skin 052448385 Completed 202206/02/2023 Problem Code: R21; Problem Code Type: ICD-10; Not Available [facility] 4 05:36:30 Osteoart hritis of left knee joint 61823109720 9109 Active 2023 tricompa rtment osteoart hritis left knee. per ORTHO at [facility] KRISTOPHER CUEVAS LPN [facility] 4 12:33:52 Pruritic rash 77013457 Active 2023 NOLAN JIMENEZ MD [address], [place], [address] , [facility] 4 11:20:54 Notes:*Problem Name: Left Wr ist Fx X 2; Colles Fracture *ICD-10 Codes: *Problem Status: inactive *Comments: *Note Date: 06/16/2012 *Problem Name: Left Wrist Fx X 2; Colles Fracture *ICD-10 Codes: *Problem Status: inactive *Comments: *Problem Code Type: CPT *Note Date: 06/16/2012 Problem Notes None recorded. Procedures Surgical History None recorded. Imaging Results Imaging Date Name [facility] Details LastModified Time 06/23/2020 DEXA completed Information no t available 05/17/2024 21:32:44 06/16/2021 XR, chest completed Information no t available 05/17/2024 21:34:17 01/15/2019 CT, chest completed Information no t available 05/17/2024 21:34:17 04/23/2019 CT, chest completed Information no t available 05/17/2024 21:34:19 07/24/2019 MAMMO, screening completed Information not available 05/17/2024 21:34:20 07/25/2020 MAMMO, screening completed Information not available 05/17/2024 21:34:21 01/15/2019 imaging/diagno stic result completed Information not available 05/17/2024 21:34:24 01/16/2019 imaging/diagno stic result completed Information not available 05/17/2024 21:34:25 01/29/2019 imaging/diagno stic result completed Information not available 05/17/2024 21:34:27 02/26/2019 imaging/diagno stic result completed Information not available 05/17/2024 21:34:28 04/09/2019 imaging/diagno stic result completed Information not available 05/17/2024 21:34:29 05/06/2019 imaging/diagno stic result completed Information not available 05/17/2024 21:34:30 07/07/2019 imaging/diagno stic result completed Information not available 05/17/2024 21:34:31 01/16/2019 imaging/diagno stic result completed Information not available 05/17/2024 21:34:32 Procedure Notes None recorded. Medical Equipment None Reported. Allergies Allergen ID Allergen Name Allergen Category Reaction Reaction Severity Criticality Documentation Date Start Date Code Code System Note Provider Name and Address Organization Details Recorded Time 71555 Dilaudid medicatio n nausea vomiting Not available Not available low 11/26/2023 03184 3 RxNorm JUANCHO VALDEZ, [place] - [facility]. 4 10:31:03 Medications Name Sig Start Date Stop Date Status Note LastModified by Organization Details LastModified Time Protonix 40 mg tablet,de layed release TAKE 1 TABLET BY MOUTH ONCE DAILY. TO REPLACE PRILOSEC 04/30 completed Not Available Not Available Not Available cetirizin e 10 mg tablet Take 1 tablet by mouth every day 2023 active Not Available Not Available Not Avai lable Flonase 50 mcg/DOSE nasal inhaler 2 SPRAY QD 12/17 completed Not Available Not Available Not Available prednison e 20 mg tablet Take 2 tablet by mouth once a day DOSE IN AMS WITH FOOD 06/19 completed Not Available Not Available Not Available sertralin e 100 mg tablet Take 1 & 1/2 tablets by mouth every day 2023 active Not Available Not Available Not Avai lable Zantac 300 mg tablet 1 QHS 12/14 completed Not Available Not Available Not Available atenolol 25 mg tablet Take 1 tablet by mouth once a day 2023 active Not Available Not Available Not Avai lable Zithromax Z-Rhys 250 mg tablet Take 2 tablet by mouth as directed Take 2 tablets by mouth now, then take 1 tablet by mouth daily for the next 4 days 06/19 completed Not Available Not Available Not Available chlorthal idone 25 mg tablet Take 1 tablet by mouth every day 2023 active Not Available Not Available Not Avai lable valacyclo vir 500 mg tablet Take 2 tablet by mouth three times a day for shingles 02/27 completed Not Available Not Available Not Available Norvasc 2.5 mg tablet 1 po daily. take along with 5 mg. 01/08 completed Not Available Not Available Not Available triamcino lone acetonide 0.1 % topical cream LAN AA three times daily 05/02 completed Not Available Not Available Not Available simvastat in 40 mg tablet Take 1 by mouth every other day 09/12 completed Not Available Not Available Not Available Aleve 220 mg tablet Take 2 tablets every 12 hours by oral route. active Not Available Not Available No t Available Macrobid 100 mg capsule Take 1 cap by mouth twice daily 07/01 completed Not Available Not Available Not Available Guaiatuss in AC 10 mg-100 mg/5 mL oral liquid Take 1-2 tsp by mouth every six hours as needed for cough 06/27 completed Not Available Not Available Not Available Zoloft 50 mg tablet 1.5 tab qd 01/08 completed Not Available Not Available Not Available Tylenol 500 mg tablet 2 tabs QAM 2017 active Not Available Not Available Not Avai lable simvastat in 20 mg tablet 1TAB QD 01/05 completed Not Available Not Available Not Available esomepraz ole magnesium 40 mg capsule,d elayed release Take 1 capsule by mouth every day 2023 active Not Available Not Available Not Avai lable Norvasc 5 mg tablet 1 tab po daily 01/08 completed Not Available Not Available Not Available ranitidin e 150 mg tablet 1TAB daily 12/30 completed Not Available Not Available Not Available omeprazol e 20 mg capsule,d elayed release Take 1 capsule by mouth once a day 04/28 completed Not Available Not Available Not Available amoxicill in 250 mg capsule 1 tab 3 times a day 09/24 completed Not Available Not Available Not Available hydrochlo rothiazid e 25 mg tablet Take 1 tab by mouth daily 06/14 completed Not Available Not Available Not Available Adult Aspirin EC Low Strength 81 mg tablet,de layed release 1 TAB QD 03/01 completed Not Available Not Available Not Available Cozaar 50 mg tablet Take 1 tablet by mouth every day 02/22 completed Not Available Not Available Not Available Tylenol Extra Strength 500 mg tablet 1 tablet as directed 01/27 completed Not Available Not Available Not Available Benadryl 25 mg capsule one AM and PM 02/05 completed Ashwin Mari Not Available Not Available Not Available Benicar 20 mg tablet Take 1 tab by mouth daily (TO REPLACE LOSARTAN ) 2019 active Not Available Not Available Not Avai lable Benicar 40 mg tablet Take 1 tablet by mouth once a day 01/14 completed Not Available Not Available Not Available rosuvasta tin 5 mg tablet Take 1 tablet by mouth every evening 2023 active Not Available Not Available Not Avai lable Crestor 10 mg tablet 1 daily 12/11 completed Not Available Not Available Not Available Fish Oil 1 daily 12/08 completed Not Available Not Available Not Available Vitamin D 1CAP daily 2013 active Not Available Not Available Not Avai lable Vitamin D3 2000 iu daily 06/10 completed Not Available Not Available Not Available multivita min once a day 06/14 completed Not Available Not Available Not Available Calcium 500 1 12/14 completed Not Available Not Available Not Available zoster vaccine live (PF) injectio n once 12/08 completed Not Available Not Available Not Available cholecalc iferol (vitamin D3) 25 mcg (1,000 unit) tablet two a day 2013 active Not Available Not Available Not Avai lable omeprazol e 20 mg tablet,de layed release Take 1 tab by mouth daily 06/13 completed Not Available Not Available Not Available glucosami ne 2KCl-msm- chondroit take 2 daily active Not Available Not Available No t Available Calcium-V itamin D once a day 06/10 completed calcium cause nausea Not Available Not Available Not Available Flonase Allergy Relief 50 mcg/actua tion nasal spray,gilmar pension 1 spray into both nostrils once a day 2020 active Not Available Not Available Not Avai lable Shingrix (PF) 50 mcg/0.5 mL intramusc ular suspensio n, kit administ er Im now and repeat dose in 2-6 months 09/30 completed Not Available Not Available Not Available Vitals Date Recorded Body height Heart rate Systolic blood pressure Diastolic blood pressure Provider Name and Address Organization Details Last Updated DateTime 01/15/2024 159.2326 cm 74 /min 146 mm[Hg] 72 mm[Hg] [address], [place], [address] , [place] - [facility]. 01/15/2024 14:12:20 Date Recorded Body height Body mass index (BMI) Body weight Heart rate Systolic blood pressure Diastolic blood pressure Provider Name and Address Organization Details Last Updated DateTime 4 159.232 6 cm 31.9 kg/m2 18770.5 4 g 64 /min 138 mm[Hg] 70 mm[Hg] KRISTOPHER CUEVAS LPN [facility] 4 15:10:28 Date Recorded Body height Body mass index (BMI) Body weight Body temperature Oxygen saturation Oxygen saturation in Arterial blood by Pulse oximetry Heart rate Respiratory rate Systolic blood pressure Diastolic blood pressure Provider Name and Address Organization Details Last Updated DateTime 4 159.23 cm 30.2 kg/m2 35978.1 1 g 97.5 [degF] 97 % 97 % 62 /min 17 /min 134 mm[Hg] 67 mm[Hg] LINO SIU MA [facility] 4 10:46:34 Date Recorded Body height Body mass index (BMI) Body weight Body temperature Heart rate Oxygen saturation Oxygen saturation in Arterial blood by Pulse oximetry Systolic blood pressure Diastolic blood pressure Provider Name and Address Organization Details Last Updated DateTime 4 159.23 cm 31.2 kg/m2 99832.7 7 g 98.1 [degF] 74 /min 94 % 94 % 126 mm[Hg] 62 mm[Hg] KRISTOPHER CUEVAS LPN [facility] 4 16:59:08 Social History Question Answer Notes LastModified by Organizat ion Details LastModified Time Tobacco Smoking Status Former Smoker JUANCHO VALDEZ, [facility], [facility] 11/26/2023 10:33:45 When Did You Quit Smoking? 16+yearssince lastcigarmainor Information not available 11/26/2023 Date Of Most Recent HSA 06/10/2024 Information not available 06/10/2024 Would You Say That, In General, Your Health Is Very Good Information not available 06/10/2024 How Often Does Anyone, Including Family, Physically Hurt You? Never Information not available 06/10/2024 How Often Does Anyone, Including Family, Insult Or Talk Down To You? Never Information not available 06/10/2024 How Often Does Anyone, Including Family, Threaten You With Harm? Never Information not available 06/10/2024 How Often Does Anyone, Including Family, Scream Or Curse At You? Never Information not available 06/10/2024 Within The Past 12 Months, You Worried That Your Food Would Run Out Before You Got Money To Buy More. Never True Information not available 06/10/2024 Within The Past 12 Months, The Food You Bought Just Didn't Last And You Didn't Have Money To Get More. Never True Information not available 06/10/2024 How Hard Is It For You To Pay For The Very Basics Like Food, Housing, Medical Care, And Heating? Would You Say It Is: Not Hard At All Information not available 06/10/2024 In The Past 12 Months, Has Lack Of Reliable Transportation Kept You From Medical Appointments, Meetings, Work Or From Getting Things Needed For Daily Living? No Information not available 06/10/2024 What Is Your Housing Situation Today? I Have Housing. Information not available 06/10/2024 How Often In The Past Year Have You Used Marijuana (including Smoking, Vaping, Dabbing, Or Edibles)? Never Information not available 06/10/2024 How Often In The Past Year Have You Used Prescription Medications That Were Not Prescribed To You? Never Information not available 06/10/2024 How Often In The Past Year Have You Taken Your Own Prescription Medication More Than The Way It Was Prescribed Or For Different Reasons Than Its Intended Purpose? Never Information not available 06/10/2024 How Often In The Past Year Have You Used Other Drugs (for Example, Heroin, Cocaine, Meth, Salvia, Inhalants)? Never Information not available 06/10/2024 Have You Ever Used IV Drugs? No Information not available 06/10/2024 What Matters Most To You? Health Information not available 06/10/2024 During The Past Four Weeks Has Your Physical And Emotional Health Limited Your Social Activities With Family And Friends, Neighbors, Or Groups? Not At All Information not available 06/10/2024 During The Past Four Weeks, Was Someone Available To Help You If You Needed And Wanted Help? (For Example, If You [place] Very Nervous, Lonely, Or Blue; Got Sick And Had To Stay In Bed; Needed Someone To Talk To; Needed Help With Daily Chores; Or Needed Help Just Taking Care Of Yourself.) Yes- As Much As I Wanted Information not available 06/10/2024 During The Past Four Weeks, What Was The Hardest Physical Activity You Could Do For At Least 2 Minutes? Moderate Information not available 06/10/2024 Can You Get To Places Out Of Walking Distance Without Help? (For Example, Can You Travel Alone On Buses Or Taxis, Or Drive Your Own Car?) Yes Information not available 06/10/2024 Can You Go Shopping For Groceries Or Clothes Without Someone? s Help? Yes Information not available 06/10/2024 Can You Prepare Your Own Meals? Yes Information not available 06/10/2024 Can You Do Your Housework Without Help? Yes Information not available 06/10/2024 Because Of Any Health Problems, Do You Need The Help Of Another Person With Your Personal Care Needs Such As Eating, Bathing, Dressing, Or Getting Around The House? No Information not available 06/10/2024 Can You Handle Your Own Money Without Help? Yes Information not available 06/10/2024 Are You Having Difficulties Driving Your Car? No Information not available 06/10/2024 Do You Always Fasten Your Seat Belt When You Are In A Car? Yes- Usually Information not available 06/10/2024 How Often During The Past Four Weeks Have You Been Bothered By Any Of The Following Problems? Falling Or Dizzy When Standing Up? Often Information not available 06/10/2024 Sexual Problems? Never Informat ion not available 06/10/2024 Trouble Eating Well? Never Information not available 06/10/2024 Teeth Or Denture Problems? Never Information not available 06/10/2024 Problems Using The Telephone? Never Information not available 06/10/2024 Tiredness Or Fatigue? Sometimes Information not available 06/10/2024 Have You Had 2 Or More Falls Or Sustained An Injury With A Fall In The Last Year? Yes Walks Walking Stick, As Arthritis In Knees Information not available 06/10/2024 Do You Have Difficulty With Walking Or Balance? No Information not available 06/10/2024 Do You Currently Use A Hearing Device? No Information not available 06/10/2024 Do You Currently Have Any Trouble With Your Vision? No Information not available 06/10/2024 Do You Exercise For About 20 Minutes Three Or More Days A Week? Yes- Some Of The Time Information not available 06/10/2024 How Often Do You Have Trouble Taking Medicines The Way You Have Been Told To Take Them? I Always Take Them As Prescribed Information not available 06/10/2024 How Confident Are You That You Can Control And Manage Most Of Your Health Problems? Very Confident Information not available 06/10/2024 Do You Currently Have Any Difficulty With Your Hearing? Yes Information not available 06/10/2024 Date Of Most Recent SBINS 06/10/2024 Information not available 06/10/2024 What Was The Date Of Your Most Recent Tobacco Screening? 06/10/2024 Information not available 06/10/2024 What Is Your Current Pack Years? 10-19packyear s Information not available 11/26/2023 At What Age Did You Start Smoking Tobacco? 25 Information not available 11/26/2023 How Much Tobacco Do You Smoke? No Information not available 11/26/2023 Has Tobacco Cessation Counseling Been Provided? No Information not available 06/10/2024 How Many Years Have You Smoked Tobacco? 10 Information not available 11/26/2023 Do You Or Have You Ever Used Any Other Forms Of Tobacco Or Nicotine? No Information not available 11/26/2023 Sex: Female Functional Status None recorded. Mental Status None recorded. Family History Relationship Description Onset Age of this Age Resolved Age Notes LastModified by Organization Details LastModified Time Sister Family history of Hypercholest erolemia karina.70 Not available 2022 03:52:20 Sister Family history of Hypertension Not available 06/2023 03:52:21 Sister Family history of malignant neoplasm of lung SMALL CELL Not available 07/12/2023 03:52:22 Sister Family history of heart failure Pacema ker placem ent 2017 Not available 07/12/2023 03:52:23 Sister Family history of diabetes mellitus type 1 Not available 2022 03:52:23 Sister Family history of breast cancer 1 gene mutation DCIS Not available 2022 03:52:23 Son Family history of Hypercholest erolemia Not available 2022 03:52:21 Mother Family history of Hypertension Not available 06/2023 03:52:21 Mother Family history of diabetes mellitus type 1 Not available 2022 03:52:23 Father Family history of alcoholism Not available 07/12 03:52:21 Brother Family history of Arthritis Not available 2022 03:52:21 Brother Family history of malignant neoplasm of lung Not available 2022 03:52:22 Unspecified Relation Family history of breast cancer 1 gene mutation Relati ve: 'Aunt' ; Not available 07/12/2023 03:52:23 Maternal Grandmother Family history of breast cancer 1 gene mutation Not available 2022 03:52:23 Notes:*Problem: Father: CHF Sisters x 3 - PVD x 1, skin CA x 1 BROTHERS x 2 - x 1 Hodgkin's lymphoma secondary to Agent [place] - Cerebral anneurysms Medical History No medical history recorded. Gynecological HistoryNo gynecological history recorded. Obstetrics History GPAL:G 0 P 0 0 0 0 Immunizations Vaccine Type Date Status Provider Name and Address Organization Details Recorded Time Td (adult), 2 Lf tetanus toxoid, preservative free, adsorbed 06/13/2020 completed Not Available [facility] 07/12/2023 06:32:25 Tdap 06/16/2010 completed Not Available [facility] 06:32:25 Influenza, split virus, quadrivalent, PF 06/28/2020 completed Not Available [facility] 07/12/2023 06:32:25 Influenza, split virus, quadrivalent, PF 06/30/2021 completed Not Available [facility] 07/12/2023 06:32:25 Influenza, high-dose, quadrivalent, PF 06/18/2022 completed Not Available [facility] 07/12/2023 06:32:25 DTaP 06/02/2007 completed Not Available [facility] 06:32:25 COVID-19, mRNA, LNP-S, PF, 100 mcg/0.5mL dose or 50 mcg/0.25mL dose 10/21/2020 completed Not Available [facility] 07/12/20 06:32:25 COVID-19, mRNA, LNP-S, PF, 100 mcg/0.5mL dose or 50 mcg/0.25mL dose 11/18/2020 completed Not Available [facility] 07/12/20 06:32:25 COVID-19, mRNA, LNP-S, PF, 100 mcg/0.5mL dose or 50 mcg/0.25mL dose 07/05/2021 completed Not Available [facility] 07/12/20 06:32:25 COVID-19, mRNA, LNP-S, bivalent, PF, 30 mcg/0.3 mL dose 06/11/2022 completed Not Available [facility] 07/12/2023 06:32:25 Past Encounters Encounter ID Performer Location Encounter Start Date Encounter Closed Date Diagnosis/Indication Diagnosis SNOMED-CT Code Diagnosis ICD10 Code [id number] MERVAT GREEN PA-C [address] [address] 11/26/2023 10:23:38 11/26/2023 12:45:24 Chronic kidney disease stage 3 227061906 N18.30 Essential hypertension 10949312 I10 Hyperlipidemia 71410828 E78.5 Major depr ession, single episode 98322302 F32.9 Screening mammography 24 025479 Z12.31 [id number] MERVAT GREEN PA-C [address] [address] 01/15/2024 13:51:03 01/15/2024 14:18:34 Essential hypertension 02258774 I10 [id number] MERVAT GREEN PA-C [facility] [address] [place] [address] 01/28/2024 14:52:01 01/28/2024 15:36:08 Essential hypertension 82507939 I10 [id number] Jose Dominguez MA [facility] [address] [place] [address] 02/03/2024 09:25:13 02/03/2024 09:36:16 Essential hypertension 22857242 I10 [id number] NOLAN JIMENEZ MD [address] [place] [address] 05/23/2024 10:38:19 05/23/2024 11:12:14 Pruritic rash 96352589 L28.2 [id number] Maria L Mata [facility] [address] [place] [address] 06/10/2024 16:37:30 06/10/2024 17:41:55 Adult health examination 307503033 Z00.00 Screening for osteoporosis 696978098 Z78.0 Essential hypertension 40245360 I10 Hyperlipidemia 31745239 E78.5 Major depr ession, single episode 42136342 F32.9 Chronic ki dney disease 237993555 N18.9 Health Concerns Section Related Observation LastModified by Organization Detai ls LastModified Time None Recorded Concern Status LastModified by Organization Details LastModified Time None Recorded Advance Directives Directive None Recorded Payers Encounter Date Sequence Insurance Name Policy Number Policy Calvo Covered Member ID Calvo Member ID Guarantor Name 01/15/2024 2 [place] [facility] PLAN F (MEDICARE SUPPLEMENT) [id number] Lauren Benitez [id number] Lauren Benitez 01/15/2024 1 [place] [employer] Lauren Benitez [id number] 0 Lauren Benitez 01/28/2024 2 [place] [facility] BL[facility] PLAN F (MEDICARE SUPPLEMENT) [id number] Lauren Benitez [id number] 19 Lauren Knapp Emmanuel 01/28/2024 1 [place] Lauren Ambrizby [id number] 0 Lauren Knapp Emmanuel 02/03/2024 2 [place] [facility] PLAN F (MEDICARE SUPPLEMENT) [id number] Lauren Ambrizby [id number] 19 Lauren Knapp Emmanuel 02/03/2024 1 [place] [facility] GOVERNMENT SERVICES Lauren Knapp Emmanuel [id number] 0 Lauren Knapp Emmanuel 05/23/2024 2 [place] [facility] PLAN F (MEDICARE SUPPLEMENT) [id number] Lauren Ambrizby [id number] 19 Lauren Knapp Emmanuel 05/23/2024 1 [place] [facility] Lauren Ambrizby [id number] 0 Lauren Benitez Notes Date Note Type Note Provider Name and Address Organization Details Recorded Time 01/15/2024 text/html HPI Notes: 78y/o female presenting with c/o elevated BP. Patient evaluated via [facility] in [place] on 01/07/24 with c/o worsening left knee pain. At time of visit, BP found signficantly elevated (173/80). Patient recommended to f/u with PCP to discuss management. Currently using ATENOLOL 25mg QD alone (d/c'd from [facility] due to concerns for this as fueling worsening of kidney function). [address], [place], [address], [facility] 01/15/2024 14:20:40 01/28/2024 text/html HPI Notes: 78y/o female presenting for 2 week f/u HTN. On presentation today, Minal reports tolerating CHLORTHALIDONE as RXd at time of last [facility] visit 01/15/24 without ASE concerns, however, has only been taking for a few days now due to delay in receiving RX from pharmacy. [address], [place], [address], [facility]. 01/28/2024 16:10:29 05/23/2024 text/html HPI Notes: The patient presents with concerns regarding skin lesions that she initially suspected to be bug bites. She reports that the lesions have become smaller and have not caused itching, except for a new small lesion that appeared this morning and is itchy. She is uncertain about the cause but mentions spending time outdoors, cutting tapia, and sitting on her porch. The patient also recently stayed in a hotel two weeks ago but has been vigilant about checking for bed bugs and stripping her bed daily. The patient has been using tea tree oil on the lesions, which she finds helpful, although topical Benadryl did not alleviate the itching. She has Benadryl pills but has not used them as the itching is mild. She suspects the irritation might be from grass or debris while weed whacking, as the box she used was open. The patient does not have any pets. NOLAN JIMENEZ MD [address], [place], [address], [facility]. 05/23/2024 11:23:07 OBGyn Episode No OBEpisode recorded.
--- OUTSIDE RECORDS SUMMARY | 2024-06-10 18:28 | XMS_ITS | Encounter Summary ---
Author Organization [facility] Address [facility] [place] [address] Care Team Providers Care Tank Builder Name Role Phone Aracelis Ramos MD Primary Care Provider [phone] Encounter Details Date Type Department Care Team (Late st Contact Info) Description 08/29/2012 Orders [place] [address] Rocco Sandoval MD [facility] [place] [address] Distal radius fracture (Primary Dx) Social History Tobacco Use Types Packs/Day Years Used Date Smoking Tobacco: Never Assessed Sex and Gender Information Value Date Recorded Sex Assigned at Not on file Gender Identity Not on file Sexual Orientation Not on file documented as of this encounter Plan of Treatment Upcoming Encounters Date Type Department Care Team (Late st Contact Info) Description 08/06/2024 9:40 AM EST Office Visit Dermatology at [facility] [address] [place] [address] Apryl Bishop MD [facility] [address] [place] [address] documented as of this encounter Visit Diagnoses Diagnosis Distal radius fracture- Primary Other closed fractures of distal end of radius (alone) documented in this encounter Care Teams Tank Builder Relationship Specialty Start Date End Date Aracelis Ramos MD [facility] [address] [place] [address] [place] [address] PCP - General 08/25/12 01/03/16 documented as of this encounter
--- OUTSIDE RECORDS SUMMARY | 2024-06-10 18:28 | XMS_ITS | Encounter Summary ---
Author Organization [facility] Address [facility] [place] [address] Care Team Providers Care Spinner Operator Name Role Phone Aracelis Ramos MD Primary Care Provider [phone] Encounter Details Date Type Department Care Team (Late st Contact Info) Description 08/24/2012 Orders [place] [address] Rocco Sandoval MD [facility] [place] [address] Social History Tobacco Use Types Packs/Day Years [...] 9:40 AM EST Office Visit Dermatology at [address] [place] [address] Apryl Bishop MD [facility] [place] [address] documented as of this encounter Procedures Procedure Name Priority Date/Time Associated Diagnosis Comments FILM LIBRARY STORAGE ONLY DX WRIST Routine 08/24/2012 9:25 AM EST documented in this encounter Results * Film Library- Storage only DX Wrist (08/24/2012 9:25 AM EST) 08/24/2012 9:25 AM EST Narrative RAD - 04/19/2014 7:05 PM EDT This is a non-reportable exam. Procedure Note Babar Demarco - 04/19/2014 This is a non-reportable exam. Rocco Sandoval MD IM FILM LIBRARY ORD ERABLES [facility] [address] [place] [address] documented in this encounter Visit Diagnoses Not on filedocumented in this encounter Care Teams Spinner Operator Relationship Specialty Start Date End Date Aracelis Ramos MD [facility] [address] [place] [address] [place] [address] PCP - General 08/25/12 01/03/16 documented as of this encounter
--- OUTSIDE RECORDS SUMMARY | 2024-06-10 18:28 | XMS_ITS | Encounter Summary ---
Author Organization [facility] Address [facility] [place] [address] Care Team Providers Care Scalp Treatment Operator Name Role Phone Darlin Puckett Primary Care Provider [phone] Encounter Details Date Type Department Care Team (Latest Contact Info) Description 07/10/2023 Travel Social History Tobacco Use Types Packs/Day Years Used Date Smoking Tobacco: Former Cigarettes 2 10 0 01/03/1975 - 01/03/1985 Smokeless Tobacco: Never Comments:q Sex and Gender Information Value Date Recorded Sex Assigned at Not on file Gender Identity Not on file Sexual Orientation Not on file documented as of this encounter Plan of Treatment Upcoming Encounters Date Type Department Care Team (Late st Contact Info) Description 08/06/2024 9:40 AM EST Office Visit Dermatology at [facility] [address] [place] [address] Apryl Bishop MD [facility] [place] [address] documented as of this encounter Visit Diagnoses Not on filedocumented in this encounter Care Teams Scalp Treatment Operator Relationship Specialty Start Date End Date Darlin Puckett PA [address] [place] [address] PCP - General Family Medicine 05/09/22 documented as of this encounter
--- OUTSIDE RECORDS SUMMARY | 2024-06-10 18:28 | XMS_ITS | Encounter Summary ---
Author Organization [facility] [place] [address] Care Team Providers Care Electrotyper Name Role Phone Darlin Puckett Primary Care Provider [phone] Encounter Details Date Type Department Care Team (Late st Contact Info) Description 04/17/2016 Telephone [place] [address] Felipe Mosqueda MD [facility] DR [place] [address] Social History Tobacco Use Types Packs/Day Years Used Date Smoking Tobacco: Former Cigarettes 2 10 0 01/03/1975 - 01/03/1985 Smokeless Tobacco: Never Comments:q Sex and Gender Information Value Date Recorded Sex Assigned at Not on file Gender Identity Not on file Sexual Orientation Not on file documented as of this encounter Miscellaneous Notes * Telephone Encounter - Loida Muñoz - 04/17/2016 1:50 PM EDT I called patient after scheduling U/S. Coordinated visit on 07/12. She is aware to arrive at receptionist nurse 3S at 1:15pm for a 1:30pm ultrasound. Then she will come upstairs to for her 3:00pm appointment with Dr. Mosqueda. documented in this encounter Plan of Treatment Upcoming Encounters Date Type Department Care Team (Late st Contact Info) Description 08/06/2024 9:40 AM EST Office Visit Dermatology at [facility] [address] [place] [address] Apryl Bishop MD [facility] [place] [address] documented as of this encounter Visit Diagnoses Not on filedocumented in this encounter Care Teams Electrotyper Relationship Specialty Start Date End Date Darlin Puckett PA [address] [place] [address] PCP - General Family Medicine 01/04/16 04/19/20 documented as of this encounter
--- OUTSIDE RECORDS SUMMARY | 2024-06-10 18:28 | XMS_ITS | Encounter Summary ---
Author Organization [facility] [place] [address] Care Team Providers Care Informal Waiter/Waitress Name Role Phone Darlin Puckett Primary Care Provider [phone] Encounter Details Date Type Department Care Team (Late st Contact Info) Description 04/11/2016 Orders Only [place] [address] Felipe Mosqueda MD [facility] ORAL AND [place] [address] Lesion of buccal mucosa (Primary Dx) Social History Tobacco Use Types [...] 9:40 AM EST Office Visit Dermatology at [facility] [address] [place] [address] Apryl Bishop MD [facility] DR [address] [place] [address] documented as of this encounter Visit Diagnoses Diagnosis Lesion of buccal mucosa- Primary Other and unspecified diseases of the oral soft tissues documented in this encounter Care Teams Informal Waiter/Waitress Relationship Specialty Start Date End Date Darlin Puckett PA [address] [place] [address] PCP - General Family Medicine 01/04/16 04/19/20 documented as of this encounter
--- OUTSIDE RECORDS SUMMARY | 2024-06-10 18:28 | XMS_ITS | Referral Summary ---
Author Organization [facility] Address [address] [place] [address] Care Team Providers Care Electrical Electronics Technician Name Role Phone Unknown, Provider Primary Care Provider [phone] Social History Tobacco Use Types Packs/Day Years Used Date Smoking Tobacco: Never Assessed Sex and Gender Information Value Date Recorded Sex Assigned at Not on file Gender Identity Not on file Sexual Orientation Not on file Plan of Treatment Not on file Care Teams Electrical Electronics Technician Relationship Specialty Start Date End Date Unknown, Provider, PCP - General 11/01/14
--- OUTSIDE RECORDS SUMMARY | 2024-06-10 18:28 | XMS_ITS | Encounter Summary ---
Author Organization [facility] Address [address] [place] [address] Care Team Providers Care Procurement Services Manager Name Role Phone Unknown, Provider Primary Care Provider Encounter Details Date Type Department Care Team (Late st Contact Info) Description 01/08/2017 Results Only [facility] [phone] Aryan Hung, [address] [place] [address] Social History Tobacco Use Types Packs/Day Years Used Date Smoking Tobacco: Never Assessed Sex and Gender Information Value Date Recorded Sex Assigned at Not on file Gender Identity Not on file Sexual Orientation Not on file documented as of this encounter Plan of Treatment Not on file documented as of this encounter Procedures Procedure Name Priority Date/Time Associated Diagnosis Comments SURGICAL PATHOLOGY Routine 01/08/2017 9:27 EDT documented in this encounter Results * SURGICAL PATHOLOGY (01/08/2017 9:27 EDT) Pathology Report: SURGICAL PATHOLOGY REPORT Reports generated via electronic interface contain original data; however they are lacking the format of the original report. Caution should be taken when reading/interpreting unformatted reports. Name: ? LAUREN BENITEZ ? Accession #: ? [id number] ? : ? 1945 (Age: 71) ??F ? Collect Date: ? 01/08/2017 ? Location: ? [facility] ? Receive Date: ? 01/09/2017 ? Provider: ARYAN HUNG DO Copy to: MERVAT GREEN PA-C ? 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 Microscopic Description: The stratum corneum is thickened by orthokeratosis and parakeratosis. ??The epidermis is of variable thickness with areas of relative hyperplasia. ??The keratinocytes show a variable degree of nuclear atypia that focally involves the full thickness of the epidermis. ??There is nuclear enlargement, dispolarity and overlap. ??Mitotic figures are noted in superficial layers of the epidermis. ??The dermis is marked by solar elastosis, vascular ectasia, and a lymphohistiocytic infiltrate. ??(Dr. Sanchez)/[facility] Document reviewed and electronically signed by: JOAQUIN SANCHEZ MD Report ??Date: 01/10/2017 13:29 By the signature above, the attending physician certifies that he/she has personally conducted a gross and/or microscopic examination of the described specimens and rendered or confirmed the above diagnosis. Specimen(s) Received: Right lateral upper eyelid Clinical History: Enlarging skin lesion; clinical diagnosis code: ??D49.2 Gross Description: ? Received in formalin labelled with proper patient identification (initials C, B) and right lateral upper eyelid is a shave biopsy of stockton-garza granular skin (0.6 x 0.5 x 0.2 cm). The specimen is inked, bisected, and submitted in 1. YULIET Zuniga (ASCP) 01/09/2017 11:38 AM End of Report [facility] 01/08/2017 9:27 EDT 01/09/2017 9:27 EDT Aryan M Hung DO PATHOLOGY ORDER ARPIT [facility] [address] [place] [address] documented in this encounter Visit Diagnoses Not on filedocumented in this encounter Care Teams Procurement Services Manager Relationship Specialty Start Date End Date Unknown, Provider, PCP - General 11/01/14 documented as of this encounter
--- OUTSIDE RECORDS SUMMARY | 2024-06-10 18:28 | XMS_ITS | Encounter Summary ---
Author Organization [facility] Address [place] [address] Care Team Providers Care Manager Of Corporate Communications Name Role Phone Aracelis Ramos MD Primary Care Provider [phone] Encounter Details Date Type Department Care Team (Late st Contact Info) Description 09/25/2011 Orders [place] [address] Rocco Sandoval MD [facility] [place] [address] Social History Tobacco Use Types Packs/Day Years [...] 9:40 AM EST Office Visit Dermatology at [address] [place] [address] Apryl Bishop MD [facility] [place] [address] documented as of this encounter Procedures Procedure Name Priority Date/Time Associated Diagnosis Comments FILM LIBRARY STORAGE ONLY DX WRIST Routine 09/25/2011 9:27 AM EST documented in this encounter Results * Film Library- Storage only DX Wrist (09/25/2011 9:27 AM EST) 09/25/2011 9:27 AM EST Narrative RAD - 04/19/2014 7:05 PM EDT This is a non-reportable exam. Procedure Note Babar Demarco - 04/19/2014 This is a non-reportable exam. Rocco Sandoval MD IM FILM LIBRARY ORD ERABLES [facility] [address] [place] [address] documented in this encounter Visit Diagnoses Not on filedocumented in this encounter Care Teams Manager Of Corporate Communications Relationship Specialty Start Date End Date Aracelis Ramos MD [facility] [address] [place] [address] [place] [address] PCP - General 08/25/12 01/03/16 documented as of this encounter
--- OUTSIDE RECORDS SUMMARY | 2024-06-10 18:28 | XMS_ITS | Clinical Summary ---
Author Organization [facility] Address [facility] [place] [address] Care Team Providers Care Business Development Officer Name Role Phone Darlin Puckett Primary Care Provider [phone] Allergies Active Allergy Reactions Criticality Noted Date Comments Hydromorphone (Bulk) Nausea And Vomiting Medium 2016 Medications Medication Sig Dispensed Refills Start Date End Date Status sertraline (ZOLOFT) 50 mg tablet Take 50 mg by mouth daily. Active simvastatin (ZOCOR) 40 mg tablet Take 40 mg by mouth nightly. Active omeprazole (PRILOSEC) 20 mg capsule Take 20 mg by mouth daily. Active Calcium 600 mg Cap Take 600 mg by mouth daily. Active multivitamin (THERAGRAN) tablet Take 1 tablet by mouth daily. Active cholecalciferol, Vitamin D3, 400 unit tablet Take 2,000 Units by mouth daily. Active cetirizine (ZYRTEC) 10 mg Tablet Take 10 mg by mouth daily. Active diphenhydrAMINE (BENADRYL) 25 mg Capsule Take 25 mg by mouth 2 times daily. Active fluticasone (FLONASE) 50 mcg/actuation [place], Suspension 1 spray daily. Act kevan amLODIPine (NORVASC) 5 mg Tablet Take 5 mg by mouth daily. Active amLODIPine (NORVASC) 2.5 mg Tablet Take 2.5 mg by mouth daily. Active Social History Tobacco Use Types Packs/Day Years Used Date Smoking Tobacco: Former Cigarettes 2 10 0 01/03/1975 - 01/03/1985 Smokeless Tobacco: Never Comments:q Sex and Gender Information Value Date Recorded Sex Assigned at Not on file Gender Identity Not on file Sexual Orientation Not on file Last Filed Vital Signs Vital Sign Reading Time Taken Comments Blood Pressure 159/89 06/13/2017 7:45 AM EDT Pulse 80 08/25/2012 4:45 PM EST Temperature 36.8 ??C (98.2 ??F) 08/25/2012 2:45 PM ES T Respiratory Rate 14 08/25/2012 4:45 PM EST Oxygen Saturation 98% 08/25/2012 4:45 PM EST Inhaled Oxygen Concentration - - Weight 74.4 kg (164 lb) 04/05/2016 4:57 PM EDT Height 160 cm (5' 3) 01/04/2016 1:20 PM EDT Body Mass Index 29.05 01/04/2016 1:20 PM EDT Plan of Treatment Upcoming Encounters Date Type Department Care Team (Late st Contact Info) Description 08/06/2024 9:40 AM EST Office Visit Dermatology at [facility] [address] [place] [address] Apryl Bishop MD [facility] [address] [place] [address] Health Maintenance Due Date Last Done Comments Hepatitis C Screening 1963 Tetanus/Diphtheria/Pertussis Vaccines (1 - Tdap) 10/20 Zoster vaccine (1 of 2) 1995 Advance Directive 2000 Bone Density Scan 2010 Pneumoccocal Vaccine: 65+ (1 of 1 - PCV) 2010 Covid-19 Vaccine (1 - season) 2024 Influenza (Flu) vaccine (1 o f 1 - Influenza standard series) 05/03/2024 Care Teams Business Development Officer Relationship Specialty Start Date End Date Darlin Puckett PA [address] [place] [address] PCP - General Family Medicine 05/09/22
--- OUTSIDE RECORDS SUMMARY | 2024-06-10 18:28 | XMS_ITS | Encounter Summary ---
Author Organization [facility] Address [facility] [place] [address] Care Team Providers Care Education Rn Name Role Phone Darlin Puckett Primary Care Provider [phone] Reason for Visit * Reason Comments Follow-up right buccal nodule with facial swelling Encounter Details Date Type Department Care Team (Late st Contact Info) Description 07/12/2016 3:00 PM EST Office Visit [place] [address] Felipe Mosqueda MD [facility] [place]AL [place] [address] Enlarged lymph node Social History Tobacco Use Types Packs/Day Years Used Date Smoking Tobacco: Former Cigarettes 2 10 0 01/03/1975 - 01/03/1985 Smokeless Tobacco: Never Comments:q Sex and Gender Information Value Date Recorded Sex Assigned at Not on file Gender Identity Not on file Sexual Orientation Not on file documented as of this encounter Progress Notes * Felipe Mosqueda MD - 07/12/2016 3:00 PM EST Oral & Maxillofacial Surgery Lesion Follow Up Lauren Benitez returns for follow up of right buccal nodule with right facial swelling. Interval History: Lauren was questioned with regards to new lumps or bumps,intra or extraoral drainage, difficulty chewing or swallowing, oral bleeding, dysarthria or altered oral sensation from prior examination. Weight and appetite were evaluated and pertinent interval changes include: ?? No changes since previous appointment ?? She remains asymptomatic ?? 11 days ago she fell in her basement and fractured her wrist - wearing a brace for 6 weeks ?? Cortisone injection in the left knee for arthritis discomfort - a series of 3 shots ?? She has begun using Biotene rinse for xerostomia ?? No longer can find the lump and she feels it may not be there any more ?? Ultrasound today Complete review of systems with attention to constitution, pulmonary, cardiac and renal status, ability to exercise and ambulate, gastrointestinal function and neurologic status was conducted - remarkable findings noted above. Clinical Examination: Visual and bimanual examination of the head and neck was conducted. Specific attention was given to surgical or pathologically involved sites, symmetry of architecture and function, TMJ function and range of jaw motion, tongue surface appearance and consistency, floor of mouth, labial and buccal mucosa, hard and soft palate and oropharynx. Dentition and supporting structuresas well as occlusion were examined where appropriate. The neck was examined with attention to muscular, vascular and lymphatic anatomy. Pertinent findings include: ?? Oropharynx unremarkable with symmetric elevation soft palate ?? Hard palate mucosa WNL ?? 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 Moderate xerostomia ?? Significantly diminished salivary flow from all major ducts ?? Dorsal and ventral aspect of tongue unremarkable without ulcerations or leukoplakia ?? Anterior FOM WNL ?? 4 mm right perifacial node palpable medially adjacent to facial artery; no evidence of expansionand is not appreciated on the left side ?? No palpable cervical adenopathy Pertinent imaging studies 07/12/16 - US SOFT TISSUE H/N summary: 1. The right submandibular gland appears normal. There are small less than 5 mm morphologically normal-appearing lymph nodes. No mass identified. If patient is unable to tolerate rate MRI and additional imaging is required a CT scan performed. 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 No evidence of facial masses. Recommendations and Plan: Follow up PRN. Time Statement: Fifteen minutes was spent with the patient greater than nine minutes of which involved direct discussion with the patient reviewing the findings on examination and the implications for treatment or continued observation. Questions regarding today's visit were answered. She will keepan eye out for progressive changes such as increased swelling. The patient was reminded to contact us if there were any further concerns. Nigel Mobley, FINANCIAL SYSTEMS DIRECTOR, am acting as scribe for Dr. Mosqueda. All work documented was performed by Dr. Mosqueda. Felipe Mobley, performed the above scribed service and agree with the accuracy of the note. documented in this encounter Plan of Treatment Upcoming Encounters Date Type Department Care Team (Late st Contact Info) Description 08/06/2024 9:40 AM EST Office Visit Dermatology at [facility] [address] [place] [address] Apryl Bishop MD [facility] [address] [place] [address] documented as of this encounter Visit Diagnoses Diagnosis Enlarged lymph node Enlargement of lymph nodes documented in this encounter Care Teams Education Rn Relationship Specialty Start Date End Date Darlin Puckett PA [address] [place] [address] PCP - General Family Medicine 01/04/16 04/19/20 documented as of this encounter
--- OUTSIDE RECORDS SUMMARY | 2024-06-10 18:28 | XMS_ITS | Encounter Summary ---
Author Organization [facility] [place] [address] Care Team Providers Care Senior Project Leader/Team Lead Name Role Phone Darlin Puckett Primary Care Provider [phone] Encounter Details Date Type Department Care Team (Latest Contact Info) Description 02/13/2017 2:42 PM EDT - 02/13/2017 11:59 PM EDT [place] [phone] Discharge Disposition: Home Social History Tobacco Use Types Packs/Day Years Used Date Smoking Tobacco: Former Cigarettes 2 10 0 01/03/1975 - 01/03/1985 Smokeless Tobacco: Never Comments:q Sex and Gender Information Value Date Recorded Sex Assigned at Not on file Gender Identity Not on file Sexual Orientation Not on file documented as of this encounter Medications at Time of Discharge Medication Sig Dispensed Refills Start Date End Date cetirizine (ZYRTEC) 10 mg Tablet Take 10 mg by mouth daily. diphenhydrAMINE (BENADRYL) 25 mg Capsule Take 25 mg by mouth 2 times daily. fluticasone (FLONASE) 50 mcg/actuation [place], Suspension 1 spray daily. amLODIPine (NORVASC) 5 mg Tablet Take 5 mg by mouth daily. amLODIPine (NORVASC) 2.5 mg Tablet Take 2.5 mg by mouth daily. sertraline (ZOLOFT) 50 mg tablet Take 50 mg by mouth daily. simvastatin (ZOCOR) 40 mg tablet Take 40 mg by mouth nightly. omeprazole (PRILOSEC) 20 mg capsule Take 20 mg by mouth daily. Calcium 600 mg Cap Take 600 mg by mouth daily. multivitamin (THERAGRAN) tablet Take 1 tablet by mouth daily. cholecalciferol, Vitamin D3, 400 unit tablet Take 2,000 Units by mouth daily. documented as of this encounter Plan of Treatment Upcoming Encounters Date Type Department Care Team (Late st Contact Info) Description 08/06/2024 9:40 AM EST Office Visit Dermatology at [facility] [address] [place] [address] Apryl Bishop MD [facility] [address] [place] [address] documented as of this encounter Procedures Procedure Name Priority Date/Time Associated Diagnosis Comments SURGICAL PATHOLOGY REPORT Routine 02/13/2017 3:09 PM EDT documented in this encounter Results * Surgical Pathology Report (02/13/2017 3:09 PM EDT) Final Diagnosis [id number] ?Location: [facility] The signing pathologist has (i) examined the relevant preparation(s) for the specimen(s) and (ii) rendered or confirmed the diagnosis(es). . ?Surgical Pathology DIAGNOSIS CONSULTATION CASE Outside slide(s) labeled [id number], collection date 01/08/2017. Skin, right lateral upper eyelid, shave ?? 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 ? We agree with the diagnostic impressions of the referring institution. CLINICAL INFORMATION Specimen Submitted: CONSULTATION CASE A - 1 slide(s) labeled [id number], collection date 01/08/2017. [id number] Report to: [facility] Surgical Pathology Department [facility], [address], [address]nd Floor [address] [place], [place] ??[address] SPECIMEN PROCESSING [facility] ([facility]) pathology slide(s) are reviewed. ??Refer to Diagnosis and Specimen Submitted for specific case information. For the full text of the [facility] ([facility]) report(s) please refer to Non-DH Documentation Pathology in the electronic health record (eDH). 02/14/2017 3:03 PM EDT [facility] Consult Case 02/13/2017 3:09 PM EDT 02/13/2017 3:09 PM EDT Pritesh Castillo DO PATHOLOGY/CYTOL OGY ORDERABLES Performing Organization Address City/State/[facility] Co de Phone Number [facility] [place] [address] documented in this encounter Visit Diagnoses Not on filedocumented in this encounter Care Teams Senior Project Leader/Team Lead Relationship Specialty Start Date End Date Darlin Puckett PA [address] [place] [address] PCP - General Family Medicine 01/04/16 04/19/20 documented as of this encounter
--- OUTSIDE RECORDS SUMMARY | 2024-06-10 18:28 | XMS_ITS | Encounter Summary ---
Author Organization [facility] Address [address] [place] [address] Care Team Providers Care Medical Staff Assistant Name Role Phone Unknown, Provider Primary Care Provider Encounter Details Date Type Department Care Team (Late st Contact Info) Description 10/29/2014 Results Only [facility] [phone] Aryan Hung, [address] [place] [address] Social History Tobacco Use Types Packs/Day Years Used Date Smoking Tobacco: Never Assessed Sex and Gender Information Value Date Recorded Sex Assigned at Not on file Gender Identity Not on file Sexual Orientation Not on file documented as of this encounter Plan of Treatment Not on file documented as of this encounter Procedures Procedure Name Priority Date/Time Associated Diagnosis Comments SURGICAL PATHOLOGY Routine 10/29/2014 16 :28 EST documented in this encounter Results * SURGICAL PATHOLOGY (10/29/2014 16:28 EST) Pathology Report: SURGICAL PATHOLOGY REPORT Reports generated via electronic interface contain original data; however they are lacking the format of the original report. Caution should be taken when reading/interpreting unformatted reports. Name: ? LAUREN BENITEZ ? Accession #: ? [id number] ? : ? 1945 (Age: 69) ??F ? Collect Date: ? 10/29/2014 ? Location: ? [facility] ? Receive Date: ? 11/01/2014 ? Provider: ARYAN HUNG DO Copy to: MERVAT HORVATH ? Final Pathologic Diagnosis: SKIN OF CHEST WALL, ANTERIOR, SHAVE BIOPSY: - Lichenoid keratosis (lichen planus-like keratosis). ?? Microscopic Description: There is mild compact ortho- and parakeratosis. ??The epidermis is of variable thickness with areas of relative rete effacement. ??The dermis is marked by a lichenoid lymphomononuclear inflammatory infiltrate that partially obscures the dermal-epidermal interface. ??The infiltrate is associated with vacuolar change of the basal keratinocytes and scattered necrotic cells. ??Melanophages are present in the superficial dermis. ??(Dr. Sanchez)/n Document reviewed and electronically signed by: JOAQUIN SANCHEZ MD Report ??Date: 11/02/2014 15:40 By the signature above, the attending physician certifies that he/she has personally conducted a gross and/or microscopic examination of the described specimens and rendered or confirmed the above diagnosis. Specimen(s) Received: Anterior chest wall Clinical History: Non-healing skin lesion; clinical diagnosis code: ??239.2 Gross Description: ? Received in formalin labelled with proper patient identification (initials C, B) and anterior chest wall is a shave biopsy of pink-stockton curling skin (1.6 x 1.3 x 0.1 cm). There is an eccentric stockton-white granular macule that measures 1.4 x 1.0 x 0.1 cm. ??The specimen is serially sectioned and entirely submitted in 1 (central sections) and 2 (ends reverse en face). Dee Laura 11/01/2014 05:04 PM End of Report [facility] 10/29/2014 16:2 8 EST 11/01/2014 16:28 EST Aryan Hung DO PATHOLOGY ORDER [facility] [address] [place] [address] documented in this encounter Visit Diagnoses Not on filedocumented in this encounter Care Teams Medical Staff Assistant Relationship Specialty Start Date End Date Unknown, Provider, PCP - General 11/01/14 documented as of this encounter
--- OUTSIDE RECORDS SUMMARY | 2024-06-10 18:28 | XMS_ITS | Clinical Summary ---
Author Organization [facility] Address [address] [place] [address] Care Team Providers Care Clay Artisan Name Role Phone Unknown, Provider Primary Care Provider Social History Tobacco Use Types Packs/Day Years Used Date Smoking Tobacco: Never Assessed Sex and Gender Information Value Date Recorded Sex Assigned at Not on file Gender Identity Not on file Sexual Orientation Not on file Plan of Treatment Health Maintenance Due Date Last Done Comments Hepatitis C Screen 1945 RSV Immunization ( o r 60+ Years) (1 - 1-dose 60+ series) 2005 Fall Risk Screening 2010 COVID-19 Vaccine (2022-24 season) 2023 Care Teams Clay Artisan Relationship Specialty Start Date End Date Unknown, Provider, PCP - General 11/01/14
--- OUTSIDE RECORDS SUMMARY | 2024-06-10 18:28 | XMS_ITS | Encounter Summary ---
Author Organization [facility]ly [facility] Address [facility] [place] [address] Care Team Providers Care Can Closing Machine Operator Name Role Phone Darlin Puckett Primary Care Provider [phone]- [phone] Reason for Visit * Consultation (Routine) - Closed Specialty Diagnoses / Procedures Referred By Nkechi curry Referred To Contact Dermatology Diagnoses Skin lesion of face Darlin Puckett PA [address] [place] [address] [facility] Dermatology [address] [place] [address] Referral ID Status Reason Start Date Expiration Date V isits Requested Visits Authorized [id number] Closed Consult, Test & Treat PCP Updated and/or Approved 05/09/2022 05/09/2023 12 12 Encounter Details Date Type Department Care Team (Late st Contact Info) Description 06/01/2022 4:20 PM EDT Office Visit Dermatology at [facility] [address] [place] [address] Lauro Walls MD [facility] [place] [address] Lentigines; Seborrheic keratoses Social History Tobacco Use Types Packs/Day Years Used Date Smoking Tobacco: Former Cigarettes 2 10 0 01/03/1975 - 01/03/1985 Smokeless Tobacco: Never Comments:q Sex and Gender Information Value Date Recorded Sex Assigned at Not on file Gender Identity Not on file Sexual Orientation Not on file documented as of this encounter Progress Notes * Lauro Walls MD - 06/01/2022 4:20 PM EDT Images from the original note were not included. DEPARTMENT OF DERMATOLOGY Medical Dermatology Clinic Note Provider: Lauro Walls MD Patient's preferred name Lauren Preferred contact method for results []Phone []myD-H []Letter Detailed phone message OK? Are there any other people with whom we may discuss your care? 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 Patient is referred to the clinic at the request of Darlin Puckett for skin changes on the nose. - she reports noticing redness on the nose, she states that she noticed some changes a few months ago. She states that her nose also feels thick Review of Systems: General: Feeling well. Skin: No other skin concerns. Medications: Reviewed in eD-H Allergies: Reviewed in eD-H Skin Examination: Focused skin examination of the face and left and right upper extremities was normal with the exception of the findings below. Assessment/Plan #. Seborrheic Keratoses - Scattered brown and flesh colored waxy stuck on plaques located on the face and upper extremities - Reassured of benign nature #. Solar Lentigines - Light-brown evenly pigmented, well-demarcated macules on the face. - Patient reassured of benign nature. Discussed returning for FBSE in 1 -2 year, recall placed Other: ??? Sun protection discussed (protective clothing and SPF30+ broad-spectrum sunscreen) RTC: ~1 yr for FSE []Note routed to board of education secretary [x]Recall placed in scheduling system []Appointment scheduled at checkout Scribe attestation: JADON Jaramillo has performed the documentation for this encounter in thepresence of and acting as a scribe for Lauro Walls MD. I performed the above scribed service and agree with the accuracy of the documentation in this encounter. Reviewed and signed by: Lauro Walls MD Dermatology [facility] Patient seen and evaluated with staff hand laminator: Tiffany Ramirez MD Department of Dermatology [facility] * Tiffany Ramirez MD - 06/01/2022 4:20 PM EDT I directly supervised Dr. Walls in the care of this patient. I saw and evaluated this patient with Dr. Walls . He presented the history and physical exam details to me, then we saw the patient together and I confirmed these findings. I agree with details as written. My physical examination confirms Dr. Walls's findings. The assessment and plan were formulated in discussion with me at the time of visit and I agree withthem as documented. TIFFANY RAMIREZ MD [facility] Staff Physician documented in this encounter Plan of Treatment Upcoming Encounters Date Type Department Care Team (Late st Contact Info) Description 08/06/2024 9:40 AM EST Office Visit Dermatology at [facility] [address] [facility] [place] [address] Apryl Bishop MD [facility] [place] [address] Scheduled Referrals Name Type Priority Associated Diagnoses Order Schedule Referral to Dermatology Outpatient Referral Routine Skin lesion of face Ordered: 05/09/2022 documented as of this encounter Visit Diagnoses Diagnosis Lentigines Other dyschromia Seborrheic keratoses documented in this encounter Care Teams Can Closing Machine Operator Relationship Specialty Start Date End Date Darlin Puckett PA [address] [place] [address] PCP - General Family Medicine 05/09/22 documented as of this encounter
--- OUTSIDE RECORDS SUMMARY | 2024-06-10 18:28 | XMS_ITS | Encounter Summary ---
Author Organization [facility] Address [facility] [place] [address] Care Team Providers Care Comb Setter Name Role Phone Aracelis Ramos MD Primary Care Provider [phone] Encounter Details Date Type Department Care Team (Late st Contact Info) Description 08/25/2012 External Results XRay at [address] [place] [address] Provider, Scanning Social History Tobacco Use Types Packs/Day Years [...] AM EST Office Visit Dermatology at [facility] [address] [place] [address] Apryl Bishop MD [facility] [place] [address] documented as of this encounter Procedures Procedure Name Priority Date/Time Associated Diagnosis Comments DIAGNOSTIC RADIOLOGY SCAN Routine 09/25/2011 documented in this encounter Results * Scan Doc: Diagnostic Radiology (09/25/2011) Anatomical Region Laterality Modality Other Scanning Provider MEDIA MGR SCAN EXT O RDR/RSLT documented in this encounter Visit Diagnoses Not on filedocumented in this encounter Care Teams Comb Setter Relationship Specialty Start Date End Date Aracelis Ramos MD [facility] [address] [place] [address] [place] [address] PCP - General 08/25/12 01/03/16 documented as of this encounter
--- OUTSIDE RECORDS SUMMARY | 2024-06-10 18:28 | XMS_ITS | Encounter Summary ---
Author Organization [facility] [place] [address] Care Team Providers Care Hub Bander Name Role Phone Darlin Puckett Primary Care Provider [phone]- [phone] Reason for Referral * Consultation (Routine) - Closed Specialty Diagnoses / Procedures Referred By Contlakia t Referred To Contact Dermatology Diagnoses Skin lesion of face Darlin Puckett PA [address] [place] [address] [facility] Dermatology [address] [place] [address] Referral ID Status Reason Start Date Expiration Date V isits Requested Visits Authorized [id number] Closed Consult, Test & Treat PCP Updated and/or Approved 05/09/2022 05/09/2023 12 12 Encounter Details Date Type Department Care Team (Latest Contact Info) Description 05/09/2022 Transcribe Orders eDH Incoming Referrals [phone] Darlin Puckett PA [address] [place] [address] Skin lesion of face Social History Tobacco Use Types Packs/Day Years [...] 9:40 AM EST Office Visit Dermatology at [facility] [address] [place] [address] Apryl Bishop MD [facility] [place] [address] Scheduled Referrals Name Type Priority Associated Diagnoses Order Schedule Referral to Dermatology Outpatient Referral Routine Skin lesion of face Ordered: 05/09/2022 documented as of this encounter Visit Diagnoses Diagnosis Skin lesion of face Unspecified disorder of skin and subcutaneous tissue documented in this encounter Care Teams Hub Bander Relationship Specialty Start Date End Date Darlin Puckett PA [address] [place] [address] PCP - General Family Medicine 05/09/22 documented as of this encounter
--- OUTSIDE RECORDS SUMMARY | 2024-06-10 18:28 | XMS_ITS | Encounter Summary ---
Author Organization [facility] Address [facility] [place] [address] Care Team Providers Care Loan Funder Name Role Phone Darlin Puckett Primary Care Provider [phone] Encounter Details Date Type Department Care Team (Late st Contact Info) Description 04/10/2017 Telephone Dermatology at [facility] [address] [place] [address] Sebastian Pretty [place] [address] Social History Tobacco Use Types Packs/Day Years Used Date Smoking Tobacco: Former Cigarettes 2 10 0 01/03/1975 - 01/03/1985 Smokeless Tobacco: Never Comments:q Sex and Gender Information Value Date Recorded Sex Assigned at Not on file Gender Identity Not on file Sexual Orientation Not on file documented as of this encounter Miscellaneous Notes * Telephone Encounter - Savanah Hunter - 04/10/2017 4:24 PM EDT 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 I contacted patient today since she has been on the waitlist. She has not gone elsewhere to have this taken care of. Has not seen Dr. Bardales. Would you do the closure? Thanks documented in this encounter Plan of Treatment Upcoming Encounters Date Type Department Care Team (Late st Contact Info) Description 08/06/2024 9:40 AM EST Office Visit Dermatology at [facility] [address] [place] [address] Apryl Bishop MD [facility] [address] [address] documented as of this encounter Visit Diagnoses Not on filedocumented in this encounter Care Teams Loan Funder Relationship Specialty Start Date End Date Darlin Puckett PA [address] [place] [address] PCP - General Family Medicine 01/04/16 04/19/20 documented as of this encounter
--- OUTSIDE RECORDS SUMMARY | 2024-06-10 18:28 | XMS_ITS | Encounter Summary ---
Author Organization [facility] Address [facility] [place] [address] Care Team Providers Care Pole Shaver Name Role Phone Darlin Puckett Primary Care Provider [phone]- [phone] Reason for Visit * Reason Comments Follow-up right facial swellin g, 1.5 cm right buccal nodule Encounter Details Date Type Department Care Team (Late st Contact Info) Description 04/05/2016 4:00 PM EDT Office Visit [place]ill[place] [address] Felipe Mosqueda MD [facility] DR ORAL AND [place] [address] Lesion of buccal mucosa Social History Tobacco Use Types Packs/Day Years Used Date Smoking Tobacco: Former Cigarettes 2 10 0 01/03/1975 - 01/03/1985 Smokeless Tobacco: Never Comments:q Sex and Gender Information Value Date Recorded Sex Assigned at Not on file Gender Identity Not on file Sexual Orientation Not on file documented as of this encounter Last Filed Vital Signs Vital Sign Reading Time Taken Comments Blood Pressure - - Pulse - - Temperature - - Respiratory Rate - - Oxygen Saturation - - Inhaled Oxygen Concentration - - Weight 74.4 kg (164 lb) 04/05/2016 4:57 PM EDT Height - - Body Mass Index 29.05 01/04/2016 1:20 PM EDT documented in this encounter Progress Notes * Felipe Mosqueda MD - 04/05/2016 4:00 PM EDT Oral & Maxillofacial Surgery Lesion Follow Up Lauren Benitez returns for follow up of right facial swelling with 1.5 cm right buccal nodule Interval History: Lauren was questioned with regards to new lumps or bumps,intra or extraoral drainage, difficulty chewing or swallowing, oral bleeding, dysarthria or altered oral sensation from prior examination. Weight and appetite were evaluated and pertinent interval changes include: ?? Stopped taking zyrtec on Saturday; itching of feet, fingertips, and right jaw began Saturday; took benadryl today to control itching ?? Right face/jaw and portion of tongue also swell when zyrtec is stopped ?? No discharge or bleeding ?? No difficulty eating, chewing or swallowing ?? This was the only episode of swelling since our last exam and she feels it has not returned to normal Complete review of systems with attention to constitution, pulmonary, cardiac and renal status, ability to exercise and ambulate, gastrointestinal function and neurologic status was conducted. Clinical Examination: Visual and bimanual examination of [...] and lymphatic anatomy. Pertinent findings include: ?? Slightly edematous right jowl region ?? Does not result in loss of range of motion ?? Not erythematous or cellulitic ?? The right cheek is quite soft and in fact the area of edema is diffuse. There is a small underlying nodule, perhaps at the anterior border of the masseter muscle but the area of palpable swelling is diffuse; not well circumscribed, non-painful or pulsatile and palpated within the central aspect of the cheek, not pointing to the skin surface or the mucosal surface. ?? Salivary flow is present but has xerostomia ?? Tongue, floor of mouth, hard and soft palate wnl ?? The parotid and preauricular regions are wnl ?? No cervical lymphadenopathy Pertinent imaging studies: none; patient is very very claustrophobic and would not tolerate an MRI Photographs of the lesion are taken but there is very little asymmetry facially but it is still present.. Impression: Right cheek swelling, the consistency of lymphangioma or hemangioma; there is no indication that this is dental in nature. An accessory parotid gland is possible but this edema is more caudal and anterior than one would expext. Recommendations and Plan: If MRI cannot be tolerated, perhaps ultrasound of this region makes sense. We can try to coordinate this with other clinic visits Time Statement: Fifteen minutes was spent with the patient greater than 12 minutes of which involved direct discussion with the patient reviewing the findings on examination and the implications for treatment or continued observation. The patient was reminded to contact us if there were any further concerns. Maria Esther Mobley, TELETYPE MECHANIC II, am acting as scribe for Dr. Mosqueda. All work documented was performed byDr. Mosqueda. IFelipe, performed the above scribed service and agree with the accuracy of the note. documented in this encounter Plan of Treatment Upcoming Encounters Date Type Department Care Team (Late st Contact Info) Description 08/06/2024 9:40 AM EST Office Visit Dermatology at [facility] [address] [place] [address] Apryl Bishop MD [facility] [address] [place] [address] documented as of this encounter Visit Diagnoses Diagnosis Lesion of buccal mucosa Other and unspecified diseases of the oral soft tissues documented in this encounter Care Teams Pole Shaver Relationship Specialty Start Date End Date Darlin Puckett PA [address] [place] [address] PCP - General Family Medicine 01/04/16 04/19/20 documented as of this encounter
--- OUTSIDE RECORDS SUMMARY | 2024-06-10 18:28 | XMS_ITS | Encounter Summary ---
Author Organization [facility] [place] [address] Care Team Providers Care Miner Operator Name Role Phone Aracelis Ramos MD Primary Care Provider [phone] Encounter Details Date Type Department Care Team (Late st Contact Info) Description 11/25/2015 Telephone [place] [address] Rekha Gee CMA Social History Tobacco Use Types Packs/Day Years Used Date Smoking Tobacco: Never Assessed Sex and Gender Information Value Date Recorded Sex Assigned at Not on file Gender Identity Not on file Sexual Orientation Not on file documented as of this encounter Miscellaneous Notes * Telephone Encounter - Rekha Gee CMA - 11/25/2015 11:37 AM EDT Spoke with patient and offered 12/06 or 12/16 appointment. Patient refused both dates because she is going to be out of town. She accepted a March 20 appointment and placement on the wait list. documented in this encounter Plan of Treatment Upcoming Encounters Date Type Department Care Team (Late st Contact Info) Description 08/06/2024 9:40 AM EST Office Visit Dermatology at [place] [address] [place] [address] Apryl Bishop MD [facility] [address] [place] [address] documented as of this encounter Visit Diagnoses Not on filedocumented in this encounter Care Teams Miner Operator Relationship Specialty Start Date End Date Aracelis Ramos MD [facility] [address] [place] [address] [place] [address] PCP - General 08/25/12 01/03/16 documented as of this encounter
--- OUTSIDE RECORDS SUMMARY | 2024-06-10 18:28 | XMS_ITS | Encounter Summary ---
Author Organization [facility] Address [facility] [place] [address] Care Team Providers Care Drying Supervisor Name Role Phone Darlin Puckett Primary Care Provider [phone] Encounter Details Date Type Department Care Team (Late st Contact Info) Description 02/13/2017 External [place] [address] Provider, Scanning Social History Tobacco Use Types [...] 9:40 AM EST Office Visit Dermatology at [facility] [address] [place] [address] Apryl Bishop MD [facility] [address] [place] [address] documented as of this encounter Procedures Procedure Name Priority Date/Time Associated Diagnosis Comments SURGICAL PATHOLOGY SCAN Routine 02/13/2017 documented in this encounter Results * Scan Doc: Surgical Pathology (02/13/2017) Pritesh Castillo DO MEDIA MGR SCAN EXT ORDR/RSLT documented in this encounter Visit Diagnoses Not on filedocumented in this encounter Care Teams Drying Supervisor Relationship Specialty Start Date End Date Darlin Puckett PA [address] [place] [address] PCP - General Family Medicine 01/04/16 04/19/20 documented as of this encounter
--- OUTSIDE RECORDS SUMMARY | 2024-06-10 18:28 | XMS_ITS | Encounter Summary ---
Author Organization [facility] Address [address] [place] [address] Care Team Providers Care Concrete Building Assembler Name Role Phone Unknown, Provider Primary Care Provider Encounter Details Date Type Department Care Team (Late st Contact Info) Description 06/14/2021 Lab Requisition [facility] Pathology & Laboratory Medicine - [facility] [address] [place] [address] Outr Resulting Lab, Provider Social History Tobacco Use Types Packs/Day Years Used Date Smoking Tobacco: Never Assessed Sex and Gender Information Value Date Recorded Sex Assigned at Not on file Gender Identity Not on file Sexual Orientation Not on file documented as of this encounter Plan of Treatment Not on file documented as of this encounter Procedures Procedure Name Priority Date/Time Associated Diagnosis Comments ZZCOVID-19 TEST [facility] PCR Today 06/14/2021 9:52 EDT COVID-19 TESTING Routine 06/14/2021 9:52 EDT documented in this encounter Results * COVID-19 TEST [facility] PCR (06/14/2021 9:52 EDT) Swab ENTIRE NASOPHARYNX / Unknown 06/14/2021 9:52 EDT 06/14/2021 22:23 EDT Provider Outr Resulting Lab MICROBIOLOGY - GENERAL ORDERABLES [facility] [address] [place] [address] * COVID-19 TESTING (06/14/2021 9:52 EDT) COVID-19 rt-PCR Result Negative Negative 06/16/2021 0:02 EDT [facility] Comment: This test has not been FDA cleared or approved. This test has been authorized by FDA under an EUA for use by authorized laboratories. This test has been authorized only for detection of nucleic acid from 2019-nCoV, not for any other viruses or pathogens. This test is only authorized for the duration of the declaration that circumstances exist justifying the authorization of emergency use of in vitro diagnostic tests for detection and/or diagnosis of 2019-nCoV under section 564(b)(1) of Act, 21 U.S.C ?? 360bbb-3(b) (1), unless the authorization is terminated or revoked sooner. Negative results do not preclude 2019-nCoV infection and should not be used as the sole basis for treatment or other patient management decisions. Negative results must be combined with clinical observations, patient history, and epidemiological information. Performed on the Sernovaher Fusion instrument Performing Lab Cammal [facility] 06/16/2021 0:02 EDT [facility] Swab 06/14/2021 9:52 EDT 06/14/2021 22:23 EDT Provider Outr Resulting Lab MICROBIOLOGY - GENERAL ORDERABLES [facility] [address] [place] [address] documented in this encounter Visit Diagnoses Not on filedocumented in this encounter Care Teams Concrete Building Assembler Relationship Specialty Start Date End Date Unknown, Provider, PCP - General 11/01/14 documented as of this encounter
--- OUTSIDE RECORDS SUMMARY | 2024-06-10 18:28 | XMS_ITS | Continuity of Care Document ---
Author Organization [place] [facility] [employer] [facility], [facility] Address [address] [place] [address] Care Team Providers Care Rand Cementer Name Role Phone EMMAMERVAT GALLEGOS Primary Care Provider Assessment Encounter Date Assessment [...] for any new or worsening skin reactions. elvia Not available 05/23/2024 11:02:41 Plan of Treatment Reminders Order Date Submit Date Provider Last Modified By Organization Details Last Modified Time Details Appointments Medicare Annual Wellness 40 2023 05:00P M MERVAT GREEN Not available Not available Not available Follow Up 30 2024 01:00P Gerhard GREEN Not available Not available Not available Lab None recorded. Referral None recorded. Procedures None recorded. Surgeries None recorded. Imaging None recorded. Medication Orders None recorded. Patient TargetsNo targets recorded. Patient Instructions Encounter Date Encounter Id Patient Instructions Last Modified By Organization Details Last Modified Time 05/23/2024 [id number] Date: [Current Date] Dear Minal, Thank you [...] Best regards, Nolan Mercado MD Family Medicine [email or web address] Not available 05/23/2024 11:02:41 Reason for Referral None Reported. Results Created Date Observation Date Name Description Value Unit Range Abnormal Flag Note LastModifiedBy Organization Detail LastModifiedTime 05/17/20 24 06/23/2020 DEXA No observ ation [...] Not Available 05/17 21:34:20 05/17/20 24 07/25/2020 osvaldo CRAIN No observ ation record ed. Not Available [...] Recorded Time Major depressi on, single episode 86335676 Active 201004/30/20 22 - Comments only - Mervat Green PA-C - - DEPRESSI ON Mood stable on ZOLOFT 150mg QD. Problem Code: F32.9; Problem Code Type: ICD-10; Not Available [facility] 3 05:12:14 Herpes zoster 4754852 Completed 201206/18/2013 Problem Code: 053.9; Problem Code Type: ICD-9; Not Available [facility] 3 05:12:14 Closed fracture of radius 618373350 Completed 201206/18/2013 Problem Code: 813.81; Problem Code Type: ICD-9; Not Available [facility] 3 05:12:14 Essentia l hyperten alma rosa 74006473 Active 201011/28/19 23 - Comments only - Mervat Green PA-C - Today's BP at goal on BENICAR 40mg QD and ATENOLOL 25mg QD. Repeat BMP collecte d today as monitori ng. Problem Code: I10; Problem Code Type: ICD-10; Not Available [facility] 3 05:12:14 Hyperlip idemia 85832885 Active 201011/28/19 23 - Comments only - Mervat Green PA-C - - HYPERLIP IDEMIA Maintain ed on CRESTOR 5mg QD Problem Code: E78.5; Problem Code Type: ICD-10; Not Available [facility] 3 05:12:14 Gastroes ophageal reflux disease without esophagi tis 800123024 Active 201005/30/20 22 - Improved - Mervat Green PA-C - To continue on NEXIUM 40mg QD. Problem Code: K21.9; Problem Code Type: ICD-10; Not Available [facility] 3 05:12:14 Senile osteopor osis 26801097 Active 201006/21/20 15 - Comments only - Mervat Green PA-C - As above, patient declines for repeat DEXA as montiori ng. Addition ally, she remains unintere sted in bisphosp honate therapy at this time. To continue on VITAMIN D suppleme nt alone Problem Code: M81.0; Problem Code Type: ICD-10; Not Available [facility] 3 05:12:14 Idiopath ic osteoart hritis 031705184 Active 2011 Problem Code: M17.0; Problem Code Type: ICD-10; Not Available [facility] 3 05:12:15 General examinat ion of patient Active 201406/14/20 21 - Comments only - Mervat Green PA-C - Will defer flu shot until acute illness resolved . Minal intends to pursue COVID booster when availabl e. Declines SHINGRIX and/or PSV23. Problem Code: Z00.8; Problem Code Type: ICD-10; Not Available [facility] 3 05:12:15 Chronic kidney disease stage 3 814190650 Active 202004/30/20 22 - Comments only - Mervat Green PA-C - - HTN, CKD Repeat CMP collecte d today as monitori ng. While awaiting results of same, patient to continue on combinat ion of BENICAR 40mg QD and ATENOLOL 25mg QD. Problem Code: N18.30; Problem Code Type: ICD-10; Not Available [facility] 3 05:12:15 Acute bronchit is 44651870 Completed 202006/28/2021 06/14/20 21 - Comments only - Mervat Green PA-C - COVID swab repeated today in accordan ce with protocol . While awaiting results, however, Minal was encourag ed to begin on ZITHROMA X as ZPAK and PREDNISO NE 40mg QD x 5d. Problem Code: J20.9; Problem Code Type: ICD-10; Not Available [facility] 3 05:12:15 Disorder of skin and/or subcutan eous tissue 63990425 Completed 202105/14/2022 04/30/20 22 - Comments only - Mervat Green PA-C - As per patient request, will refer to [facility] dermatol [facility]gy Problem Code: L98.9; Problem Code Type: ICD-10; Not Available [facility] 3 05:12:15 Cough 74636482 Completed 202106/13/2022 Problem Code: R05.8; Problem Code Type: ICD-10; Not Available [facility] 3 05:12:15 Obesity 637129731 Active 202211/28/19 23 - Comments only - Mervat Green PA-C - BMI 32. Patient commende d on weight loss efforts through intermit tent fasting. Problem Code: E66.9; Problem Code Type: ICD-10; Not Available [facility] 3 05:12:15 Herpes zoster 4441015 Completed 202206/02/2023 Problem Code: B02.9; Problem Code Type: ICD-10; Not Available [facility] 4 05:36:31 Acquired trigger finger 1994731 Completed 201206/28/2017 Problem Code: 727.03; Problem Code Type: ICD-9; Not Available [facility] 3 05:12:22 Atrophic vulva 452585612 Completed 201206/28/2017 Not Available [facility] 3 05:12:23 Hyperten sive disorder 87481770 Completed 201006/21/2015 Not Available [facility] 3 05:12:23 Cholecys tectomy Completed 201106/28/2017 Not Available [facility] 3 05:12:23 Solitary nodule of lung 569086226 Completed 201806/12/2019 Problem Code: R91.1; Problem Code Type: ICD-10; Not Available [facility] 3 05:12:24 Osteopor osis 32954540 Completed 201005/29/2023 Problem Code: 733.00; Problem Code Type: ICD-9; Not Available [facility] 3 05:12:24 Traumati c or non-trau matic injury 407854027 Completed 201809/12/2020 Problem Code: T14.8xxD ; Problem Code Type: ICD-10; Not Available [facility] 3 05:12:25 History of clinical finding in subject 818920457 Completed 201006/28/2017 Not Available [facility] 3 05:12:26 Tongue swelling 442243510 Completed 201506/27/2016 Not Available [facility] 3 05:12:27 Depressi ve disorder 37618659 Completed 201005/29/2023 06/21/20 15 - Comments only - Mervat Green PA-C - Well maintain ed on ZOLOFT 100mg QD. Not Available [facility] 3 05:12:28 Tubal ligation done 16638371878 108 Completed 201105/29/2023 Not Available [facility] 3 05:12:30 Closed fracture of multiple left ribs 07420133512 151907 Completed 201806/12/2019 Problem Code: S22.42xA ; Problem Code Type: ICD-10; Not Available [facility] 3 05:12:30 Closed fracture of left clavicle 72765051486 720640 Completed 201809/12/2020 Problem Code: S42.002A ; Problem Code Type: ICD-10; Not Available [facility] 3 05:12:31 Dysuria 37816136 Completed 201706/12/2019 Problem Code: R30.0; Problem Code Type: ICD-10; Not Available [facility] 3 05:12:31 Cough 95155672 Completed 201406/27/2016 Problem Code: R05; Problem Code Type: ICD-10; Not Available [facility] 3 05:12:32 Degenera tive joint disease involvin g multiple joints 835900720 Completed 201105/29/2023 Problem Code: 715.00; Problem Code Type: ICD-9; Not Available [facility] 3 05:12:32 Pain of right knee joint 95292367437 4100 Completed 201506/28/2017 Problem Code: M25.561; Problem Code Type: ICD-10; Not Available [facility] 3 05:12:32 Sialolit hiasis 49393426 Completed 201501/09/2016 Problem Code: K11.5; Problem Code Type: ICD-10; Not Available [facility] 3 05:12:32 Carcinom a in situ of skin 74767432 Completed 201609/12/2020 Problem Code: D04.9; Problem Code Type: ICD-10; Not Available [facility] 3 05:12:33 Gastro-e sophagea l reflux disease with esophagi tis 400501719 Completed 201005/29/2023 Not Available [facility] 3 05:12:34 Bilatera l hearing loss 84302658 Active 2022 Problem Code: H91.93; Problem Code Type: ICD-10; Not Available [facility] 4 05:36:29 History of fall 272780586 Active 202206/02/20 23 - Comments only - Mervat Green PA-C - As per patient request, will refer to PT for gait training /conditi oning. Problem Code: Z91.81; Problem Code Type: ICD-10; Not Available [facility] 4 05:36:29 Vitamin D deficien cy 28204699 Active 2022 Problem Code: E55.9; Problem Code Type: ICD-10; Not Available [facility] 4 05:36:29 Localize d eruption of skin 412786844 Completed 202206/02/2023 Problem Code: R21; Problem Code Type: ICD-10; Not Available [facility] 4 05:36:30 Osteoart hritis of left knee joint 91585211996 9109 Active 2023 tricompa rtment osteoart hritis left knee. per ORTHO at [facility] KRISTOPHER CUEVAS LPN null, [facility]. 4 12:33:52 Pruritic rash 24539038 Active 2023 NOLAN JIMENEZ MD [address], [place], [address] , [facility]. 4 11:20:54 Notes:*Problem Name: Left Wr ist Fx X 2; Colles Fracture *ICD-10 Codes: *Problem Status: inactive *Comments: *Note Date: 06/16/2012 *Problem Name: Left Wrist Fx X 2; Colles Fracture *ICD-10 Codes: *Problem Status: inactive *Comments: *Problem Code Type: CPT *Note Date: 06/16/2012 Problem Notes None recorded. Medical Equipment None Reported. Allergies Allergen ID Allergen Name Allergen Category Reaction Reaction Severity Criticality Documentation Date Start Date Code Code System Note Provider Name and Address Organization Details Recorded Time 65390 Dilaudid medicatio n nausea vomiting Not available Not available low 11/26/2023 24369 3 RxNorm JOSH STRICKLAND MA [facility] 10:31:03 Medications Name Sig Start Date Stop [...] capsule one AM and PM 02/05 completed P Chance Mari Not Available Not Available Not Available [...] (PF) 50 mcg/0.5 mL intramusc ular suspensio dmitry mccain administ er Im now and repeat dose in 2-6 months 09/30 completed Not Available Not Available Not Available Vitals Date Recorded Body height Body mass index (BMI) Body weight Body temperature Oxygen saturation Oxygen saturation in Arterial blood by Pulse oximetry Heart rate Respiratory rate Systolic blood pressure Diastolic blood pressure Provider Name and Address Organization Details Last Updated DateTime 4 159.23 cm 30.2 kg/m2 97908.1 1 g 97.5 [degF] 97 % 97 % 62 /min 17 /min 134 mm[Hg] 67 mm[Hg] [facility]U [facility] 4 10:46:34 Social History Question Answer Notes LastModified by Organizat ion Details LastModified Time Tobacco Smoking Status Former Smoker JOSH STRICKLAND MA [facility], [facility], [facility] 11/26/2023 10:33:45 When Did You Quit Smoking? 16+yearssince lastcigarette Information not available 11/26/2023 Date Of Most [...] And Wanted Help? (For Example, If You [place] Very Nervous, Lonely, Or Blue; Got Sick [...] 06/10/2024 What Is Your Current Pack Years? 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 Gynecological HistoryNo gynecological history recorded. Obstetrics History GPAL:G 0 P 0 0 0 0 Immunizations Vaccine Type Date Status Provider Name and Address Organization Details Recorded Time Td (adult), 2 Lf tetanus toxoid, preservative free, adsorbed 06/13/2020 completed Not Available [facility] 07/12/2023 06:32:25 Tdap 06/16/2010 completed Not Available [facility] 06:32:25 Influenza, split virus, quadrivalent, PF 06/28/2020 completed Not Available [facility] 07/12/2023 06:32:25 Influenza, split virus, quadrivalent, PF 06/30/2021 completed Not Available [facility] 07/12/2023 06:32:25 Influenza, high-dose, quadrivalent, PF 06/18/2022 completed Not Available [facility] 07/12/2023 06:32:25 DTaP 06/02/2007 completed Not Available [facility] 06:32:25 COVID-19, mRNA, LNP-S, PF, 100 mcg/0.5mL dose or 50 mcg/0.25mL dose 10/21/2020 completed Not Available [facility] 07/12/20 06:32:25 COVID-19, mRNA, LNP-S, PF, 100 mcg/0.5mL dose or 50 mcg/0.25mL dose 11/18/2020 completed Not Available [facility] 07/12/20 06:32:25 COVID-19, mRNA, LNP-S, PF, 100 mcg/0.5mL dose or 50 mcg/0.25mL dose 07/05/2021 completed Not Available [facility] 07/12/20 06:32:25 COVID-19, mRNA, LNP-S, bivalent, PF, 30 mcg/0.3 mL dose 06/11/2022 completed Not Available [facility] 07/12/2023 06:32:25 Past Encounters Encounter ID Performer Location Encounter Start Date Encounter Closed Date Diagnosis/Indication Diagnosis SNOMED-CT Code Diagnosis ICD10 Code [id number] NOLAN JIMENEZ MD [address] [address] 05/23/2024 10:38:19 05/23/2024 11:12:14 Pruritic rash 94778391 L28.2 Health Concerns Section Related Observation LastModified by Organization Detai ls LastModified Time None Recorded Concern Status LastModified by Organization Details LastModified Time None Recorded Payers Encounter Date Sequence Insurance Name Policy Number Policy Calvo Covered Member ID Calvo Member ID Guarantor Name 05/23/2024 2 [place] [facility] PL[facility] F (MEDICARE SUPPLEMENT) [id number] Lauren Benitez [id number] Lauren Benitez 05/23/2024 1 [place] [employer] Lauren Benitez [id number] Lauren Benitez Notes Date Note Type Note Provider Name and Address Organization Details Recorded Time 05/23/2024 text/html HPI Notes: The patient presents [...] pets. NOLAN JIMENEZ MD [address], [place], [address], [facility]. 05/23/2024 11:23:07 OBGyn Episode No OBEpisode recorded.
--- OUTSIDE RECORDS SUMMARY | 2024-06-10 18:28 | XMS_ITS | Encounter Summary ---
Author Organization [facility] Address [facility] [place] [address] Care Team Providers Care Wet Pour Mixer Name Role Phone Darlin Puckett Primary Care Provider [phone]- [phone] Encounter Details Date Type Department Care Team (Late st Contact Info) Description 07/10/2023 10:00 AM EST Office Visit Dermatology at [facility] [address] [place] [address] Apryl Bishop MD [facility] [address] [place] [address] Skin cancer screening; History of SCC (squamous cell carcinoma) of skin; Seborrheic keratoses; Lentigines; Lombardi angioma; Scar; Actinic keratoses; Inflamed seborrheic keratosis Social History Tobacco Use Types Packs/Day Years Used Date Smoking Tobacco: Former Cigarettes 2 10 0 01/03/1975 - 01/03/1985 Smokeless Tobacco: Never Comments:q Sex and Gender Information Value Date Recorded Sex Assigned at Not on file Gender Identity Not on file Sexual Orientation Not on file documented as of this encounter Progress Notes * Apryl Bishop MD - 07/10/2023 10:00 AM EST Images from the original note were not included. DEPARTMENT OF DERMATOLOGY Medical Dermatology Clinic Provider: Apryl Bishop MD Patient's preferred name Lauren Preferred contact method for results []Phone []myD-H []Letter Detailed phone message OK? Are there any other people with whom we may discuss your care? 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 Patient returns to clinic today for full skin exam. Patient denies any specific skin concerns today; no lesions that are new, changing or symptomatic. Last visit at Dermatology: 06/01/2022 Last visit with this provider: Visit date not found Medications: Reviewed in eD-H Allergies: Reviewed in eD-H Skin Examination: Full skin examination: Patient asked to undress to their comfort level. Verbalized that the provider's preference is that patient remove all clothing and that the provider will not examine areas patient elects to keep covered. Examination of the scalp, hair, head, face, ears, neck, chest, axillae, abdomen, back, buttocks, and upper and lower extremities was normal with the exception of the findings below. Genitalia not examined. Assessment/Plan #. Pigmented Actinic Keratoses Ill-defined gritty papule on the right nasal bridge. - Explained premalignant potential of these lesions. - Discussed treatment with cryotherapy. Patient elects to proceed with cryotherapy today. - Instructed patient to return to clinic for re-evaluation if lesion(s) does not resolve as expected with this treatment. Procedure: Destruction of lesion(s) with cryotherapy (LN2). Location(s): As noted above. Number: 1 Discussed procedure and expectations, including risks and benefits. Verbal consent obtained. Treated with LN2. There were no complications; Patient tolerated the procedure well. Post-procedure expectations and wound care reviewed. #. Inflamed Seborrheic Keratoses Inflamed, stuck on, waxy papule on the left lateral thigh(x1). - Discussed benign nature of lesion(s) and provided reassurance. - Due to irritation present on today's exam and history of symptoms, discussed removal with cryotherapy. - Patient elects to proceed with cryotherapy today. Procedure: Destruction of lesion(s) with cryotherapy (LN2). Location(s): As noted above Number: 1 Discussed procedure and expectations including risks and benefits. Verbal consent obtained. Treatedwith LN2. There were no complications; Patient tolerated the procedure well. Post-procedure expectations and wound care were reviewed. #. Lentigo vs SK 1.3 x 1.5 cm light brown macule on the right cheek (Figure 1) -Photo taken today and will continue to clinically monitor #. History of SCCis Well-healed scar on the right lateral upper eyelid per skin history. - No evidence of recurrence; will continue to monitor. #. Seborrheic Keratoses Stuck on, waxy papules on the trunk and extremities. - Discussed benign nature of lesions and provided reassurance. No treatment necessary at this time. -Patient is currently treating with AmLactin and CeraVe lotion #. Lentigines Scattered light-brown, evenly pigmented, well-demarcated macules on sun-exposed areas of the trunk and extremities. - No worrisome pigmented lesions. Discussed benign nature of lesions and provided reassurance. Willcontinue to monitor. #. Lombardi Angiomas Multiple bright red, well-demarcated papules on the trunk and extremities. - Discussed benign nature of lesions and provided reassurance. No treatment necessary at this time. #. Scar Well healing scar on the right central chest -No treatment necessary Figure 1 Photo(s) taken and charted with patient's verbal consent. Other: Sun protection discussed (protective clothing and SPF30+ broad-spectrum sunscreen) OTC skin products discussed RTC: 1 yr for FBSE otherwise PRN []Note routed to financial secretary [x]Recall placed in scheduling system []Appointment scheduled at checkout Scribe attestation: JADON Hernandez has performed the documentation for this encounter in the presence of and acting as a scribe for Apryl Bishop MD. I performed the above scribed service and agree with the accuracy of the documentation in this encounter. Reviewed and signed by: Apryl Bishop MD Dermatology [facility] Patient seen and evaluated with staff student nurse: Vera Zheng MD Dermatology [facility] * Vera Zheng MD - 07/10/2023 10:00 AM EST I directly supervised Apryl Bishop MD in the care of this patient. I saw and evaluated this patient with Apryl Bishop MD. Apryl Bishop MD presented the history and physical exam details to me, then we saw the patient together, and I confirmed these findings. I agree with details as written. My physical examination confirms Apryl Bishop MD's findings. The assessment and plan were formulated in discussion with me at the time of visit, and I agree with them as documented. VERA ZHENG MD Staff Pump And Still Operator Department of Dermatology [facility] documented in this encounter Plan of Treatment Upcoming Encounters Date Type Department Care Team (Late st Contact Info) Description 08/06/2024 9:40 AM EST Office Visit Dermatology at [facility] [address] [place] [address] Apryl Bishop MD [facility] [address] [place] [address] documented as of this encounter Visit Diagnoses Diagnosis Skin cancer screening Screening for malignant neoplasm of the skin History of SCC (squamous cell carcinoma) of skin Personal history of other malignant neoplasm of skin Seborrheic keratoses Lentigines Other dyschromia Lombardi angioma Nevus, non-neoplastic Scar Scar condition and fibrosis of skin Actinic keratoses Actinic keratosis Inflamed seborrheic keratosis documented in this encounter Care Teams Wet Pour Mixer Relationship Specialty Start Date End Date Darlin Puckett PA [address] [place] [address] PCP - General Family Medicine 05/09/22 documented as of this encounter
--- OUTSIDE RECORDS SUMMARY | 2024-06-10 18:28 | XMS_ITS | Encounter Summary ---
Author Organization [facility] Address [facility] [place] [address] Care Team Providers Care Contract Sheltered Workshop Supervisor Name Role Phone Darlin Puckett Primary Care Provider [phone]- [phone] Encounter Details Date Type Department Care Team (Late st Contact Info) Description 04/13/2016 Orders Only [place] [address] Florentin Mosqueda MD [facility] ORAL [place] [address] Lesion of buccal mucosa (Primary Dx) Social [...] 9:40 AM EST Office Visit Dermatology at [facility] [address] [place] [address] Apryl Bishop MD [facility] [place] [address] documented as of this encounter Results * US Soft Tissue Head Or Neck (07/12/2016 1:55 PM EST) Anatomical Region Laterality Modality Ultrasound 07/12/2016 1:53 PM EST Impressions 07/12/2016 2:07 PM EST ??Ultrasound Dictation: US SOFT TISSUE ??H/N summary: 1. The right submandibular gland appears normal. There are small less than 5 mm morphologically normal-appearing lymph nodes. No mass identified. If patient is unable to tolerate rate MRI and additional imaging is required a CT scan performed. ? Selina Mejia MD Electronically Signed Final Report ?? 07/12/2016 02:06 pm Narrative 07/12/2016 2:07 PM EST Thyroid ?(Signed Final 07/12/2016 02:06 pm) PATIENT INFO: ID #: ? [id number] ?: ??[birth year] (70 yrs) Name: ? LAUREN BENITEZ ?Visit Date: 07/12/2016 01:53 pm PERFORMED BY: Performed By: ? Regla Ayala RDMS Attending: ?Roberto JUÁREZ, Selina Corona. Associate: ?Mingo JUÁREZ, Ayo Bruno Referred By: ?FLORENTIN MOSQUEDA DMD Location: ? [place] SERVICE(S) PROVIDED: ??USTN - Soft Tissue Neck or Head - [id number] ? [id number] INDICATIONS: ??1 year history of right buccal/cheek and ??perimandibular swelling COMPARISON: No -------- HISTORY: -------- Patient had right submandibular swelling 3 months ago. No symptoms at this time. ADDITIONAL FINDINGS: Right submandibular region scanned. ??Small lymph nodes seen. ??No mass seen. Procedure Note Selina Mejia MD - 07/12/2016 Thyroid (Signed Final 07/12/2016 02:06 pm) PATIENT INFO: ID #: [id number] : 45 (70 yrs) Name: LAUREN BENITEZ Visit Date: 07/12/2016 01:53 pm PERFORMED BY: Performed By: Regla Ayala RDMS Attending: Selina Mejia MD Associate: Ayo Aguila MD Referred By: FLORENTIN MOSQUEDA DMD Location: [place] SERVICE(S) PROVIDED: USTN - Soft Tissue Neck or Head - [id number] INDICATIONS: 1 year history of right buccal/cheek and perimandibular swelling COMPARISON: No -------- HISTORY: -------- Patient had right submandibular swelling 3 months ago. No symptoms at this time. ADDITIONAL FINDINGS: Right submandibular region scanned. Small lymph nodes seen. No mass seen. IMPRESSION Ultrasound Dictation: US SOFT TISSUE H/N summary: 1. The right submandibular gland appears normal. There are small less than 5 mm morphologically normal-appearing lymph nodes. No mass identified. If patient is unable to tolerate rate MRI and additional imaging is required a CT scan performed. Selina Mejia MD Electronically Signed Final Report 07/12/2016 02:06 pm Florentin Mosqueda MD IMG US GEN ORDERABLE S documented in this encounter Visit Diagnoses Diagnosis Lesion of buccal mucosa- Primary Other and unspecified diseases of the oral soft tissues Lesion of buccal mucosa Other and unspecified diseases of the oral soft tissues documented in this encounter Care Teams Contract Sheltered Workshop Supervisor Relationship Specialty Start Date End Date Darlin Puckett PA [address] [place] [address] PCP - General Family Medicine 01/04/16 04/19/20 documented as of this encounter
--- OUTSIDE RECORDS SUMMARY | 2024-06-10 18:28 | XMS_ITS | Encounter Summary ---
Author Organization [facility] Address [address] [place] [address] Care Team Providers Care Cleaning And Washing Equipment Operator Name Role Phone Unavailable Primary Care Provider Unavailabl e Encounter Details Date Type Department Care Team (Latest Contact Info) Description 10/29/2014 15:14 EST - 10/29/2014 23:59 EST Hospital Encounter [address] [address] Unknown, Provider, Discharge Disposition: Home or Self Care Social History Tobacco Use Types Packs/Day Years Used Date Smoking Tobacco: Never Assessed Sex and Gender Information Value Date Recorded Sex Assigned at Not on file Gender Identity Not on file Sexual Orientation Not on file documented as of this encounter Discharge Disposition Disposition Code Departure Means Destination Home or Self Group Home documented in this encounter Plan of Treatment Not on file documented as of this encounter Visit Diagnoses Not on filedocumented in this encounter
--- OUTSIDE RECORDS SUMMARY | 2024-06-10 18:28 | XMS_ITS | Encounter Summary ---
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 These may increase the change of bleeding. Do not smoke for a minimum of 5 days after surgery. Do not get your bandage wet. Avoid public pools and hot tubs As a rule, no exercise is permitted for 7 days. Avoid heavy lifting or any activity that will pull or strain the wound for 3 weeks minimum. Certain surgeries will require longer periods off from exercise as instructed by your doctor. Potential Complications Pain: Most patients have little or no pain. If your wound hurts, apply an ice pack for 15 minutes out of every hour until bedtime. Ice compresses should be done OVER the pressure bandage. Do not apply ice directly on the skin. Ice should be placed in a plastic bag, then wrapped in a towel and applied to the bandaged wound. A bag of frozen peas wrapped in a towel also works well. If your wound still hurts, you can take Tylenol 500 mg every 4-6 hours. Increasing pain, or pain not relieved by Tylenol, should be reported to our office. Infection: Infection is not common when the wound is well cared for. [place] drainage or slight yellowfilm on your bandage or open wound is normal and is not an infection. It is also normal for the edges of the wound to be pink or red, but redness should not spread out beyond the wound edges. If you notice any of these signs of infections, please call the clinic. ??? Increased pain or swelling around the wound ??? Redness spreading out from the wound ??? Green, thick, or foul smelling wound drainage ??? Fever or chills Bleeding: It is normal to see a small amount of blood on the pressure bandage when you remove it. If blood leaks out of the bandage within the first 48 hours, hold firm pressure directly over the topof the bandage without removing it for 15 minutes. If bleeding does not stop, hold pressure for another 15 minutes. If bleeding continues, call our office immediately or go to your local urgent care or emergency room. If blood accumulates under the sutured area, this is called a hematoma. Your wound will become swollen and very hard to the touch. You may experience increasing amounts of pain. This requires attention, and our office should be notified. Swelling and Bruising: These side effects are fairly common, but usually resolve in 2-3 weeks. Areas of the mouth and eye can last longer. Swelling and bruising can be reduced by applying an ice packover the dressing for 15 minutes out of every hour for the rest of the day of surgery. Swelling around the eyes and neck are normal if you have had surgery to the forehead, eye area, nose, or cheeks. In fact, one or both eyes may swell shut. Swelling will be worse in the morning and improve during the day. If your wound is on your face, head or neck: ??? Sleep with your head raised on 2 pillows to reduce swelling ??? Do no bend over with your head lower then the level of your heart. Bend at the knees and not the waist. If your wound is on your arm or leg: ??? Keep your arm or leg raised above your heart as much as you can, such as putting your leg on a pillow then lying down, particularly for the first 48 hours. This will help prevent swelling and promote healing. Wounds on the arm or leg may heal more slowly than other areas. ??? Use compression stocking or diana wrap if instructed to do so. Scarring: There is always some scarring from any wound. Some people may have thickened scars, but these often flatten out in 3-6 months. Occasionally injections are used to help flatten thick scars. Time improves most scars. Wound healing actually takes 1-2 years before it is completely finished. Cover-up makeup may be used after the wound is healed. Other questions or concerns? Please do not hesitate to contact us. During regular business hours you can call the clinic at . After 5PM and on weekends, please call the hospital number and ask for the Machine Joiner Cementer barrel rifler button. Please apply bacitracin with a q-tip to the open area. Wash with warm water. If you have any bleeding, please apply pressure with a q-tip for 15 minutes. documented in this encounter Progress Notes * Sebastian Pretty MD - 06/13/2017 8:00 AM EDT Mohs consultation/preoperative note Patient Name: Lauren Benitez Age: 71 y.o. Date of : 1945 REFERRING PROVIDER: Pritesh Castillo CC: Mohs micrographic surgery for treatment of a cutaneous tumor HPI: Lauren Benitez is a 71 y.o. 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 The dermatologic preoperative information sheet was reviewed with pertinent positive and negative as below. DERMATOLOGIC PRE-OPERATIVE EVALUATION AND REVIEW OF SYSTEMS (Check those that apply) Yes No Yes No [] [x] Prior skin cancer(s)? [] [x] Organ transplant (type/year)? [] [x] History of melanoma? [] [x] History of radiation to head/neck areas for skin cancer [] [x] Heart disease? [] [x] Cardiac stents? [] [x] Valve replacement (which valves and year)? [] [x] Pacemaker? [] [x] Defibrillator? [] [x] Joint replacement or scheduled for one soon? [] [x] Hearing aids? [] [x] Cochlear, cosmetic, or other implants? [x] [] Hypertension (controlled/not controlled)? Controlled with medication [] [x] Lung Disease/COPD/asthma? And If yes, do you have difficulty lying flat due to breathing? [] [x] Dementia/stroke? [] [x] Liver disease? [] [x] Other cancers? [] [x] Hepatitis or HIV? [] [x] Diabetes? [] [x] Bleeding disorder? [] [x] History of reaction to suture or glue [] [x] Fibromyalgia or extreme sensitivity to pain? [] [x] Personal history of addiction to alcohol, drugs, or prescription medications? [] [x] Basal cell nevus syndrome (ie genetic syndromes that predispose to skin cancer) [] [x] Other: BLOOD THINNERS: No Yes No [] [x] NSAIDS [x] [] Fish oil/Multivitamin/Vit E/?? supplements?? (discontinue 1 week before and after surgery) [] [x]???natural?? medicines not prescribed by a physician (discontinue 1 week before and after) SOCIAL HISTORY: Occupation: Retired, assistant speech language pathologist Distance driven today: 1[address] Makes Own Decisions Yes Who is accompanying patient today: , Luis Miguel Hearing aid or other devices: No Who lives with patient (i.e. spouse, children, care home/correction)? Luis Miguel Relevant travel history or future plans: none Prior bed tanning use No Does patient need any assistive devices: None. Sunscreen use: no Tobacco use (amount per day, type of tobacco. If no tobacco, former smoker?): no quit in 1980s- 2 ppd (10 years) Alcohol use (type and amount per day - daily, occasional, never): yes occasionally Marital status: . PAST MEDICAL HISTORY No past medical history on file. PAST SURGICAL HISTORY No past surgical history on file. ALLERGIES: Allergies Allergen Reactions ??? Dilaudid [Hydromorphone (Bulk)] Nausea And Vomiting MEDICATIONS: Current Outpatient Prescriptions on File Prior to Visit Medication Sig Dispense Refill ??? cetirizine (ZYRTEC) 10 mg Tablet Take 10 mg by mouth daily. ??? diphenhydrAMINE (BENADRYL) 25 mg Capsule Take 25 mg by mouth 2 times daily. ??? amLODIPine (NORVASC) 5 mg Tablet Take 5 mg by mouth daily. ??? amLODIPine (NORVASC) 2.5 mg Tablet Take 2.5 mg by mouth daily. ??? sertraline (ZOLOFT) 50 mg tablet Take 50 mg by mouth daily. ??? simvastatin (ZOCOR) 40 mg tablet Take 40 mg by mouth nightly. ??? omeprazole (PRILOSEC) 20 mg capsule Take 20 mg by mouth daily. ??? Calcium 600 mg Cap Take 600 mg by mouth daily. ??? multivitamin (THERAGRAN) tablet Take 1 tablet by mouth daily. ??? cholecalciferol, Vitamin D3, 400 unit tablet Take 2,000 Units by mouth daily. ??? fluticasone (FLONASE) 50 mcg/actuation [place], Suspension 1 spray daily. No current facility-administered medications on file prior to visit. VITAL SIGNS: BP 159/89 (BP Location (NBP): Left arm, Patient Position: Sitting, BP Cuff Sizes: Adult (25-34 cm)) PHYSICAL EXAMINATION: General: patient is awake, alert, oriented and in no acute distress. Skin: Located on the right lateral upper eyelid is an erythematous scar corresponding with recent biopsy site. PHYSICIAN REVIEW OF REPORTS, RECORDS, IMAGES: 1) Biopsy slide(s) was/were requested and reviewed today by the Mohs surgeon prior to surgery and Iagree with diagnosis in the associated pathology report. 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 2) The accompanying pathology report(s) associated with aforementioned biopsy slide(s) were/was also reviewed. Assessment: Lauren Benitez is a 71 y.o. female presenting for: 1. 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 Plan: 1. Findings from the biopsy report, my independent review of the histopathology from his biopsy slides, today's clinical exam, and other pertinent details were reviewed with patient today. All questions were answered. 2. Discussed treatment options based on the above findings. We recommended Mohs micrographic surgery for treatment of this tumor. Mohs micrographic surgery was indicated due to: [x] Anatomic location where tissue conservation is critical [] Immunocompromised (HIV, organ transplant, hematologic malignancy such as CLL, or pharmacologic Immunosuppression) [] Genetic syndromes (basal cell nevus syndrome, xeroderma pigmentosum, other) [] Aggressive histopathology (For BCC: morpheaform/fibrosing/sclerosing, Infiltrating, Perineural, metatypical/keratotic, Micronodular) (For SCC: Sclerosing, Basosquamous, Small cell, Poorly or undifferentiated, Perineural/perivascular, Spindle cell, Pagetoid, KA type on central face, Single cell, Clear cell, Lymphoepithelial, Sarcomatoid, or Breslow depth 2 mm or more) [] Incomplete tumor extirpation from prior treatment (i.e. Positive margins) [] Tumor size > 2 cm [] Recurrence of tumor [] Ill-defined clinical borders [] History of radiation at the surgical site 3. We discussed risks, benefits, and alternative treatment options to the Mohs micrographic surgeryprocedure as below: ?? Risks include bleeding, infection, scar, recurrence, large wound, prolonged wound, pain, swelling, bruising, and more rarely damage to underlying structures such as nerves, cartilage, or muscle which could lead to temporary or permanent loss of sensation or motor function. ?? Benefit is precise tumor removal ?? If reconstruction is performed, it is specific to the patient and defect. ?? Discussed that the shape, size, depth of the wound is often not known until the tumor is clearedand thus the reconstruction options are sometimes not known until after tumor clearance. ?? Reviewed the pros and cons of common reconstructions used for this tumor type, size, and location, and that reconstruction may lead to change in appearance. ?? Reviewed that there are some aspects of cosmesis that are dependent on patient's characteristicssuch as age, skin laxity/texture factors, inflammatory skin diseases such as rosacea, prior surgery/radiation, degree of actinic damage, smoking status, strength of the patient's immune system, diligent wound care, medications, and genetics. 4. The nature of sun-induced photo-aging and skin cancers was discussed. Recommended sun avoidance when possible, especially peak hours of sun 10 am to 2pm, protective clothing such as wide-brimmed hats and long-sleeved clothing, and the use of SPF broad-spectrum sunscreen SPF 50 or higher. 5. Signs and symptoms of skin cancer reviewed. Patient to report any new, changing, or symptomatic lesions and follow up with his visual lead or other skin provider. 6. Discussed avoiding direct sun exposure to scars for best cosmetic result. Summary of Procedure(s): 1. Please see operative report for complete details. Briefly, the tumor cleared in 1 stage(s). The final defect was repaired by second intention. Sebastian Pretty MD Mohs Micrographic Surgery and Dermatologic Oncology Section of Dermatology, Department of Surgery * Sebastian Pretty MD - 06/13/2017 8:00 AM EDT Mohs micrographic Surgery Operative Report Patient name: Lauren Benitez : 1945 Date: 06/13/2017 Staff Surgeon: Sebastian Pretty MD Nursing/Accountant Certified Public(s): Tiki Padgett, Madison Talamantes, Swathi Palacios, Lena Dalal MD Associate Financial Analyst (s): Parul Davila Pre-operative diagnosis: squamous cell carcinoma in-situ with follicular involvement Post-operative diagnosis: squamous cell carcinoma in-situ with follicular involvement Location/Site: right lateral upper eyelid Procedure: Mohs micrographic surgery Indication(s) for Mohs micrographic surgery: anatomic location for tissue conservation Stages: 1 Preoperative size of tumor: 0.4 x 0.4 cm Final defect size: 0.7 x 0.6 cm Stage I The nature and purpose of the procedure, associated risks, possible consequences and complications,and alternative forms of treatment were explained in detail. We reviewed the possible repairs basedon the clinical appearance of tumor but discussed that often the repair options may not be known until the tumor has jerry extirpated. Informed consent and permission to take photographs were obtained. The site was confirmed with the patient/authorized admissions representative/referring physician and/or a photograph form time of biopsy. A pre-operative time-out (procedural pause) was conducted with no unresolved discrepancies noted. Local anesthesia was obtained with 1% lidocaine with 1:100,000 epinephrine. The surgical site was prepped and draped in the usual sterile manner. Clinically apparent tumor was removed by curette. With all visible gross tumor completely excised, the borders of the tumor and 2- 3 mm margins were excised as a complete layer. Hemostasis was achieved by electrocoagulation. The excised tissue was oriented and divided into 1 sections, chromacoded, and submitted for frozen sections. The patient tolerated the procedure well and without complications. On microscopic evaluation of the frozen sections, no residual tumor was identified on the deep or outer border of the sections. The final size of the defect after complete tumor removal was 0.7 x 0.6 cm, extending to level of subcutaneous fat. Sebastian Pretty MD Repair Operative Report (Second intention) Patient name: Lauren Benitez : 1945 Date: 06/13/2017 Staff Surgeon: Sebastian Pretty MD Box Attacher(s): Same as above Clinical Diagnosis: 0.7 x 0.6 cm surgical defect secondary to Mohs micrographic surgery Location/Site: right lateral upper eyelid Procedure: Second intention After reviewing the reconstruction options including primary closure, local flaps, skin graft, and second intention healing, the patient elected to have the post Mohs defect heal by second intention. The surgical site was cleaned and any bleeding hemostasis achieved with electrosurgery. Opthalmic bacitratcin with a gauze dressing was applied. The patient tolerated the procedure well and without complications and was given both verbal and written instruction on postoperative wound care. The patient was discharged in good condition. Total Anesthesia: 3 cc 1% lidocaine with 1:100,000 epinephrine Sebastian Pretty MD Mohs Micrographic Surgery and Dermatologic Oncology Section of Dermatology, Department of Surgery documented in this encounter Plan of Treatment Upcoming Encounters Date Type Department Care Team (Late st Contact Info) Description 08/06/2024 9:40 AM EST Office Visit Dermatology at [facility] [address] [place] [address] Apryl Bishop MD [facility] [place] [address] documented as of this encounter Visit Diagnoses Diagnosis 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
--- OUTSIDE RECORDS SUMMARY | 2024-06-10 18:28 | XMS_ITS | Encounter Summary ---
Author Organization [facility] Address [facility] [place] [address] Care Team Providers Care Nurse Healthcare Manager Name Role Phone Darlin Puckett Primary Care Provider [phone]- [phone] Reason for Visit * Reason Comments Mouth Lesions Right buccal space n odule * Consultation (Routine) - Closed Specialty Diagnoses / Procedures Referred By Contlakia t Referred To Contact Maxillofacial Surgery Diagnoses rt buccal space nodule Pritesh Castillo, DO [address] [place] [address] [facility] [address] [place] [id number] Referral ID Status Reason Start Date Expiration Date V isits Requested Visits Authorized [id number] Closed Connection Center 11/17/2015 11/16/2016 1 1 Encounter Details Date Type Department Care Team (Late st Contact Info) Description 01/04/2016 1:30 PM EDT Office [place] [address] Felipe Mosqueda MD [facility] [place] [address] Lesion of buccal mucosa Social History Tobacco [...] - Inhaled Oxygen Concentration - - Weight 72.6 kg (160 lb) 01/04/2016 1:20 PM EDT Height 160 cm (5' 3) 01/04/2016 1:20 PM EDT Body Mass Index 28.34 01/04/2016 1:20 PM EDT documented in this encounter Progress Notes * Felipe Mosqueda MD - 01/04/2016 1:12 PM EDT Oral & Maxillofacial Surgery Lesion Consultation Lauren Benitez is 70 y.o. female who was sent to us for consultation by Dr. Castillo regarding right buccal space nodule. A complete history of the patient 's symptoms and physical signs were reviewed with attention to initial findings and progression, pain, bleeding, swelling, lumps, bumps, drainage, dysphagia, odynophagia, paresthesia, dysarthria and systemic effects. Pertinent notations from today's history: ?? Prior history of 2 pack per day tobacco use for 10 years; quit in 1984 ?? No difficulty eating, chewing, or swallowing ?? No prior orthodontics ?? No removable oral appliances ?? Has been having an allergic reaction for the past 1.5 years; unknown cause; question if due to medication change; currently taking zyrtec and benadryl daily; being followed by her PCP ?? Has had swelling and itching or feet, finger tips, tongue, jaw ?? Right jaw swelling summer; ? Secondary to bug bite; itchy; warm to touch; no associated fever ?? Swelling has slowly subsided over time but has never fully gone away ?? Has not taken an antibiotic course for the issue ?? Not preceded by tooth ache ?? No foreign travel ?? No CT scan done ?? Does not have cats and has not been scratched by cats ?? Referred by PCP to Dr. Castillo; seen 11/14/15 then referred to our office ?? Sees Dr. Childress for dental care ?? Most recent dental cleaning 2 weeks ago; PA taken of area of concern Past medical history: ?? Hypertension ?? Depression Past surgical history: ?? Left wrist surgery x2 ?? Tubal ligation ?? Cholecystectomy Brief Review of Systems conducted with comments regarding pulmonary, neurologic, cardiac, gastrointestinal, hepatic, renal and dermatological symptoms negative except as noted above. ??? cetirizine (ZYRTEC) 10 mg Tablet ??? diphenhydrAMINE (BENADRYL) 25 mg Capsule ??? fluticasone (FLONASE) 50 mcg/actuation [place], Suspension ??? amLODIPine (NORVASC) 5 mg Tablet ??? amLODIPine (NORVASC) 2.5 mg Tablet ??? sertraline (ZOLOFT) 50 mg tablet ??? simvastatin (ZOCOR) 40 mg tablet ??? omeprazole (PRILOSEC) 20 mg capsule ??? Calcium 600 mg Cap ??? multivitamin (THERAGRAN) tablet ??? cholecalciferol, Vitamin D3, 400 unit tablet Physical Exam: Extraoral exam conducted including facial symmetry, sensory and motor function, alertness and appropriateness to questions and commands, range of jaw motion, TMJ function and skeletal architecture. Neck exam conducted with attention to normal musculature, vasculature and potential adenopathy. Intraoral exam including evaluation of tongue surface and consistency, floor of mouth, buccal and labial mucosa, hard and soft palate and oropharynx as well as dentition, dental arches and occlusion and salivary flow. Pertinent findings include: ?? Excellent mandibular ROM with S-shaped deviation on opening; left condyle translocated first ?? No significant facial asymmetry ?? Oropharynx unremarkable ?? Hard and soft palate mucosa WNL ?? Moderate xerostomia ?? 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 Maxillary and mandibular dental midlines on target ?? Crossbites on the right side involving molars and premolars ?? Anterior FOM mucosa WNL ?? Dorsal and ventral aspect of tongue WNL ?? Maxillary and mandibular vestibules WNL ?? Palpation of the mandibular and maxillary alveolar ridges - wnl ?? Small palpable nodule at posterior border of right submandibular gland on bimanual palpation ?? Same degree of nodularity is palpable on the left side ?? No pain to palpation on the mandibular ridge or along the inferior border ?? 1.5 cm poorly defined, doughy in consistency, non-pulsatile, non-painful nodule of the right buccal tissues adjacent to terminal molar 3 cm proximal to the right commissure of the mouth; best palpated on bimanual exam (patient was not able to find it today); within this tissue was a more discrete 4mm nodule which was mobile and could be rolled between fingers ?? No cervical lymphadenopathy ?? No preauricular adenopathy ?? Dentition in good repair Available imaging studies (patient had periapical radiographs taken that are not available at present). Impression: Resolved right facial swelling which could be consistent with salivary gland obstruction or insect bite; doubt odontogenic source. This could be residual lymphatic tissue or within this tissue, a small thrombosed vein which moves easily. Strongly doubt neoplastic process. 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 Recommendations and Plan: Follow up in clinic in 3 months. We will re-evaluate at that time and should nodule enlarge we may obtain an MRI with contrast.. Time Statement: Forty minutes was spent with the patient greater than 30 minutes of which involved direct discussion regarding the clinical findings on today's exam, their implications and need for review. Treatment where indicated as well as alternatives, benefits and risks were reviewed and questions encouraged. The patient was asked to contact us if there were further concerns in the interim. Maria Esther Mobley, SHIPPING ROOM HELPER II, am acting as scribe for Dr. Mosqueda. All work documented was performed byDr. Mosqueda. Felipe Mobley, performed the above scribed service and agree with the accuracy of the note. documented in this encounter Plan of Treatment Upcoming Encounters Date Type Department Care Team (Late st Contact Info) Description 08/06/2024 9:40 AM EST Office Visit Dermatology at [facility] [address] [place] [address] Apryl Bishop MD [facility] [place] [address] documented as of this encounter Visit Diagnoses Diagnosis Lesion of buccal mucosa Other and unspecified diseases of the oral soft tissues documented in this encounter Care Teams Nurse Healthcare Manager Relationship Specialty Start Date End Date Darlin Puckett PA [address] [place] [address] PCP - General Family Medicine 01/04/16 04/19/20 documented as of this encounter
--- OUTSIDE RECORDS SUMMARY | 2024-06-10 18:28 | XMS_ITS | Encounter Summary ---
Author Organization [facility] Address [facility] [place] [address] Care Team Providers Care Textile Supervisor Name Role Phone Aracelis Ramos MD Primary Care Provider [phone] Reason for Visit * Reason Comments Wrist Pain Encounter Details Date Type Department Care Team (Late st Contact Info) Description 08/25/2012 11:36 AM EST - 08/25/2012 4:57 PM EST Emergency [place] [address] Maria L Brito MD [facility] [place] [address] Closed fracture of distal end of radius Discharge Disposition: Home Social History Tobacco Use Types Packs/Day Years Used Date Smoking Tobacco: Never Assessed Sex and Gender Information Value Date Recorded Sex Assigned at Not on file Gender Identity Not on file Sexual Orientation Not on file documented as of this encounter Last Filed Vital Signs Vital Sign Reading Time Taken Comments Blood Pressure 171/84 08/25/2012 4:45 PM EST Pulse 80 08/25/2012 4:45 PM EST Temperature 36.8 ??C (98.2 ??F) 08/25/2012 2:45 PM ES T Respiratory Rate 14 08/25/2012 4:45 PM EST Oxygen Saturation 98% 08/25/2012 4:45 PM EST Inhaled Oxygen Concentration - - Weight - - Height - - Body Mass Index - - documented in this encounter Discharge Instructions * Discharge Instructions* Mariya Alicea MD - 08/25/2012 2:13 PM EST Orthopaedic Home Care Instructions Care of Your Broken Bone Below are general guidelines to follow after treatment for a fracture. We will give you more specific instructions depending on the type and location of your injury. You will need to be aware that these guidelines are only general, each person???s recovery may vary. If you have any questions after reading this sheet, please call us. 1. INJURY: Distal Radius Fracture Activity Keep your cast/splint clean and dry. For the first 72 hours, keep your injured extremity raised as much as possible. Keep your injured extremity raised above the level of the heart. Use blankets and/or pillows to help. DO NOT allow the injured extremity to dangle or excessive swelling and pain will develop. Use ice over the injured extremity for about 72 hours - at least 3-4 times per day for 20 minutes at a time. You can use a simple plastic bag with ice (double the bag!) and place the bag over the injured extremity. Ice is effective even through the casts. Too much activity will result in discomfort and swelling, and may slow healing. You will be much happier later if you follow activity restrictions. Less is better for the first week! Weight-bearing status: Non weight bearing left upper extremity. 2. Prescriptions You were given a prescription for oxycodone: take one - two tablets every 4-6 hours as needed. They can be constipating, so I recommend also taking a stool softener such as Colace 100mg 2x/day. Stop the stool softener if you develop diarrhea. You should not drive while taking narcotic medication You may also take Acetaminophen (Tylenol) for pain but do not take more than 3000mg per day. Avoid ibuprofen type medications (aleve, advil, motrin, naprosyn, celebrex). These medications havebeen suggested to slow bone healing. You should find yourself needing less and less pain medication after the first few days. Take your pain medicine as directed. Take any of your other usual medicines as directed. 3. Please contact us if: You have excessive swelling. Typically you have not kept the injured extremity raised high enough. If the swelling does not go down after raising the injured extremity above the heart for 3 to 4 hours, call the clinic or come to the emergency department. You feel excessive pain or your injured extremity becomes numb. Again, this usually happens when the injured extremity is not raised high enough. If the pain does not lessen after 3 to 4 hours of strict elevation, call the clinic. Your cast/splint is too tight. Follow the instructions about raising the extremity. If you have any questions or concerns, please call the following: Orthopaedic Clinic Saturday thru Saturday 8am - 5pm (see below) Orthopaedic Physician application security architect --After 5pm and Weekends [phone] We are interested in your prompt and healthy recovery. Please follow the above instructions. Please call the office (at number below) to verify your post fracture appointment, typically the following day or Saturday if you injure yourself over the weekend. Your care today was provided by Rogelio Alicea MD Follow up in 5-7 days will be arranged in the following orthopaedic clinic General orthopedic clinic (trauma/sports/pediatrics) [phone] documented in this encounter Medications at Time of Discharge Medication Sig Dispensed Refills Start Date End Date sertraline (ZOLOFT) 50 mg tablet Take 50 [...] tablet Take 2,000 Units by mouth daily. hydrochlorothiazide (HYDRODIURIL) 25 mg tablet Take 25 mg by mouth daily. 01/04/2016 aspirin 81 mg EC tablet Take 81 mg by mouth daily. 01/04/2016 DOCOSAHEXANOIC ACID/EPA (FISH OIL ORAL) Take 1,200 mg by mouth daily. 01/04/2016 OXYcodone (ROXICODONE) 5 mg immediate release tablet Take 1-3 tablets by mouth every 4 hours as needed for Pain. 45 tablet 0 08/25/2012 01/04/2016 ondansetron (ZOFRAN ODT) 4 mg oral disintegrating tablet Take 1-2 tablets by mouth every 8 hours as needed for Nausea. 6 tablet 1 08/25/2012 01/04/2016 documented as of this encounter ED Notes * Thai Riley RN - 08/25/2012 4:54 PM EST Pt was feeling nauseated after walking to the bathroom. Pt is awake, alert and oriented x 3. Skin color is pink warm and dry. She received a another dose of zofran. She felt like trying to go home after the Zofran dose. Pt was helped to the car via wheelchair. And released with instructions. * Nasir Demarco RN - 08/25/2012 3:20 PM EST Pt on side of bed still feeling terrible states laying down feels better once I sit up the room is spinning pt laid back down another IV placed fluids started MD aware no new orders at this time. * Maria L Brito MD - 08/25/2012 2:49 PM EST Emergency Department Lauren Benitez is a 66 y.o. female who presents to [facility] with Ortho History of Present Illness / Review of Systems The patient is resting comfortably in the bed Physical Exam: I reviewed the patient???s vitals as recorded in the electronic medical record and ED nursing notes. The patient was non-toxic appearing and in no obvious distress. Assessment/Plan: This 66 y.o. female was transferred from an outside hospital emergency department to receive specialty care provided by the Ortho service for wrist fracture. I discussed the case with resident/fellowof the accepting service. The patient was deemed to be stable and not requiring significant involvement from the attending emergency physician at this time. The accepting service has assumed further care of the patient. Please see their notes for any further clinical details. Maria L Brito MD 08/25/12 1001 * Nasir Demarco RN - 08/25/2012 2:45 PM EST Arm is splinted N/V intact pt feeling dizzy oob to wc feeling nauseated pt request to rest before being DC'd from department MD aware lights off call light in reach blanket over pt will re-assess * Nasir Demarco RN - 08/25/2012 1:30 PM EST Ortho in to reduce wrist no needs a this time * Nasir Demarco RN - 08/25/2012 1:00 PM EST Pt arm being held in traction at this time pt tolerating procedure but is very painful asking for pain meds N/V intact no other needs * Nasir Demarco RN - 08/25/2012 12:10 PM EST Orth[address] resident Dr. Alicea here to see pt at at this time * Nasir Demarco RN - 08/25/2012 12:00 PM EST Pt to 6B present left arm is splinted and aced wrapped pt able to move fingers without difficulty fingers are pink warm dry pt denies numbness tingling pt fell yesterday missed the last two stairs in her home pt previously broke this same arm one years ago pt went to [facility]SH ED was told to calland make an appointment here at [facility] with ortho / pt called was instructed to come to ED documented in this encounter Miscellaneous Notes * Consult Note - Mariya Alicea MD - 08/25/2012 2:00 PM EST Motor And Controls Tester Consult Note Name: Lauren Benitez Age: 66 y.o. Sex; Female Date of : 1945 PCP ARACELIS RAMOS MD [phone] Reason for Consult: We have been asked to see Lauren Benitez at the request of Maria L Brito MD, for evaluation of the patient's orthopaedic injuries and recommendations for treatment. I have reviewed the available records, interviewed and examined the patient. Date of Consultation: 08/25/2012 Place of Service: Emergency Department Problem List: There are no hospital problems to display for this patient. There are no active non-hospital problems to display for this patient. ID: 66 y.o. Female presents to [facility] with left distal radius fracture HPI Patient reports that she fell off two steps onto her outstretched left wrist on Saturday. She was seen at [place] where she was placed in a volar resting splint and instructed to follow up with her Orthopaedic surgeon today. Of note, she had very similar fracture in September of this year that was reportedly closed reduced by Dr. Chavarria in the operating room. Unfortunately, he was away on vacation so she elected to come to [facility] for further care. Review of Systems Positive for pain in left wrist, nausea following administration of pain medication. No other constitutional symptoms reported. Past Medical and Surgical History: HTN Hypercholesterolemia GERD Closed reduction of left wrist previously Prior To Admission Medications: HCTZ, Zoloft, Omeprazole, ASA 81mg, Simvastatin Allergies: NDKA Family History: No family history on file. Social History and Habits: Nonsmoker Occasional etoh Retired onsite health coach Lives in [place] with History Social History ??? Marital Status: Spouse Name: N/A Number of Children: N/A ??? Years of Education: N/A Occupational History ??? Not on file. Social History Main Topics ??? Smoking status: Not on file ??? Smokeless tobacco: Not on file ??? Alcohol Use: Not on file ??? Drug Use: Not on file ??? Sexually Active: Not on file Other Topics Concern ??? Not on file Social History Narrative ??? No narrative on file Physical Exam: Last Set of Vitals: BP 171/84 Pulse 80 Temp(Src) 36.8 ??C (98.2 ??F) (Oral) Resp 14 SpO2 98% Physical Exam Focused Exam: A&Ox3, NAD Moving all 4 extremities without difficulty Left Upper Extremity Painless range of motion shoulder, elbow and hand. Obvious deformity over dorsum of left wrist. Skin intact. Compartments soft. Crepitus not present. Radial Pulse 2+. Sensation: median nerve intact, radial nerve intact, ulnar nerve intact, labc nerve intact and axillary nerve intact. Motor:5/5 shoulder abductor, elbow flexion, elbow extension, EPL intact, FPL intact and Interossei intact. Imaging: XR Left Wrist: distal radius fracture with dorsal displacement of distal fragment with intraarticular involvement. also ulnar styloid fracture. Post-reduction XR: improved alignment, clear intraarticular involvement and ulnar styloid fracture Films from 09/25/11: Fracture from September 2011 shows similar pattern when compared to current filmsraising concern of nonunion vs. Malunion. Assessment: Lauren Benitez is a 66 y.o. female with left distal radius fracture. Procedure: Hematoma block placed using approximately 8cc 50:50 mixture of 1% lidocaine and 0.25% sensorcaine. Patient was placed in fingertraps for approximately 45 minutes and a closed reduction attempt was made. Post-reduction films showed satisfactory alignment. Recommendations: ?? Activity NWB LUE ?? Pain Control Dilaudid prn ?? DVT Prophylaxis: None ?? Antibiotics none ?? Physical Therapy Referral none for now ?? Will discuss with Attending Staff, Dr. Astorga ?? Please call Suzanna Alicea pager # [phone] with questions or concerns. ?? Attending application security architect: Dr. Astorga ?? Will task fu in Ortho clinic in approximately 1 week, will consider CT at that time I have contacted the referring team and discussed our evaluation and recommendations as listed above. The orthopaedic service will continue to follow Laruen Benitez. Thank you for the opportunity toassist in the evaluation and treatment of Lauren Benitez. MARIYA ALICEA MD 08/25/2012 * Miscellaneous - Provider, Scanning - 08/25/2012 1:49 PM EST * ED Triage - Kimberly Cerda - 08/25/2012 11:44 AM EST S: pt referred to ED from . J to be seen by ortho for fx of left wrist. O: pt present with splint and sling to left arm documented in this encounter Plan of Treatment Upcoming Encounters Date Type Department Care Team (Late st Contact Info) Description 08/06/2024 9:40 AM EST Office Visit Dermatology at [facility] [address] [place] [address] Apryl Bishop MD [facility] [place] [address] documented as of this encounter Procedures Procedure Name Priority Date/Time Associated Diagnosis Comments XR ELBOW 3 VIEW COMPLETE STAT 08/25/2012 2:22 PM EST XR WRIST COMPLETE MINIMUM 3 VIEWS STAT 08/25/2012 2:17 PM EST documented in this encounter Results * XR elbow 3 view complete (08/25/2012 2:22 PM EST) Anatomical Region Laterality Modality Elbow N/A Radiographic Nicolasa ging 08/25/2012 2:22 PM EST Narrative 08/25/2012 2:32 PM EST Examination ELBOW 3 VIEW COMPLETE/LEFT Clinical History distal radius fracture Comparison None Technique AP, lateral and oblique of the left elbow. Findings A cast is present obscuring bony detail and limiting this evaluation. ??No gross fracture or dislocation is seen. Procedure Note Jose Antonio Lau MD - 08/25/2012 Examination ELBOW 3 VIEW COMPLETE/LEFT Clinical History distal radius fracture Comparison None Technique AP, lateral and oblique of the left elbow. Findings A cast is present obscuring bony detail and limiting this evaluation. Nogross fracture or dislocation is seen. Franklyn Zayas MD IMG DX ORDERABLES * XR wrist complete minimum 3 views (08/25/2012 2:17 PM EST) Anatomical Region Laterality Modality N/A Radiographic Nicolasa ging 08/25/2012 2:17 PM EST Narrative 08/25/2012 2:31 PM EST Examination WRIST COMP MIN 3VIEW/LEFT Clinical History s/p reduction of distal radius fracture Comparison August 24. Technique PA, oblique and lateral of the left wrist. Findings A cast is present and obscures fine bony detail. There is a comminuted fracture of the distal left radius. ??It does appear that the fracture line extends to the articular surface. ??The ulnar styloid is fractured as well. The radial fracture fragments are in anatomic alignment and improved since the previous film. Procedure Note Jose Antonio Lau MD - 08/25/2012 Examination WRIST COMP MIN 3VIEW/LEFT Clinical History s/p reduction of distal radius fracture Comparison August 24. Technique PA, oblique and lateral of the left wrist. Findings A cast is present and obscures fine bony detail. There is a comminuted fracture of the distal left radius. It does appearthat the fracture line extends to the articular surface. The ulnar styloid is fractured as well. The radial fracture fragments are in anatomic alignment and improved sincethe previous film. Franklyn Zayas MD IMG DX ORDERABLES documented in this encounter Visit Diagnoses Diagnosis Closed fracture of distal end of radius Other closed fractures of distal end of radius (alone) documented in this encounter Administered Medications Inactive Administered Medications - up to 3 most recent administrations Medication Order MAR Action Action Date Dose Rate Site HYDROmorphone (DILAUDID) injection 1 mg 1 mg, Intravenous, ONCE, 1 dose, On Sat08/25/12 at 1400, STAT Given 08/25/2012 1:45 PM EST 1 mg HYDROmorphone (DILAUDID) injection 1-2 mg 1-2 mg, Intravenous, ONCE, 1 dose, On Sat08/25/12 at 1330, STAT Given 08/25/2012 1:10 PM EST 1 mg ondansetron (ZOFRAN) injection 4 mg 4 mg, Intravenous, ONCE, 1 dose, On Sat08/25/12 at 1400, STAT Given 08/25/2012 1:40 PM EST 4 mg ondansetron (ZOFRAN) injection 4 mg 4 mg, Intravenous, ONCE, 1 dose, On Sat08/25/12 at 1700, STAT Given 08/25/2012 4:45 PM EST 4 mg sodium chloride 0.9% 1,000 mL IV bolus Intravenous, ONCE, 1 dose, On Sat08/25/12 at 1600 Given 08/25/2012 3:35 PM EST 20-Other (document in comment section) documented in this encounter Active and Recently Administered Medications Times are shown in EST. Scheduled Medication Order 08/23/2012 08/24/2012 08/25/2012 HYDROmorphone (DILAUDID) injection 1 mg (COMPLETED) 1 mg, Intravenous, ONCE, 1 dose, On Sat08/25/12 at 1400, STAT 1345 (Given - Provid er: Nasir Demarco RN) HYDROmorphone (DILAUDID) injection 1-2 mg (COMPLETED) 1-2 mg, Intravenous, ONCE, 1 dose, On Sat08/25/12 at 1330, STAT 1310 (Given - Provid er: Nasir Demarco RN) ondansetron (ZOFRAN) injection 4 mg (COMPLETED) 4 mg, Intravenous, ONCE, 1 dose, On Sat08/25/12 at 1400, STAT 1340 (Given - Provid er: Nasir Demarco RN) ondansetron (ZOFRAN) injection 4 mg (COMPLETED) 4 mg, Intravenous, ONCE, 1 dose, On Sat08/25/12 at 1700, STAT 1645 (Given - Provid er: Thai Riley RN) sodium chloride 0.9% 1,000 mL IV bolus (COMPLETED) Intravenous, ONCE, 1 dose, On Sat08/25/12 at 1600 1535 (Given - Provid er: Nasir Demarco RN - Comment: rt hand)1630 (IV Stop - Provider: Nasir Demarco RN) documented in this encounter Care Teams Textile Supervisor Relationship Specialty Start Date End Date Aracelis Ramos MD HOSPITALIST SERVICES [facility] [place] [address] PCP - General 08/25/12 01/03/16 documented as of this encounter
--- OUTSIDE RECORDS SUMMARY | 2024-06-10 18:28 | XMS_ITS | Encounter Summary ---
Author Organization [facility] Address [facility] [place] [address] Care Team Providers Care Cooker Sulfite Name Role Phone Darlin Puckett Primary Care Provider [phone] Encounter Details Date Type Department Care Team (Late st Contact Info) Description 07/12/2016 1:30 PM EST - 07/12/2016 11:59 PM [facility] Hospital [place] [address] Florentin Mosqueda MD [facility] [place] [address] Lesion of buccal mucosa Discharge Disposition: Home Social History Tobacco Use [...] 2 times daily. fluticasone (FLONASE) 50 mcg/actuation [place], Suspension 1 spray daily. amLODIPine (NORVASC) 5 [...] 9:40 AM EST Office Visit Dermatology at [facility] [address] [place] [address] Apryl Bishop MD [facility] [address] [facility] [place] [address] documented as of this encounter Procedures Procedure Name Priority Date/Time Associated Diagnosis Comments US SOFT TISSUE HEAD OR NECK Routine 07/12/2016 1:55 PM EST Lesion of buccal mucosa documented in this encounter Results * US Soft Tissue [...] required a CT scan performed. ? Selina Chloe Mejia MD Electronically Signed Final Report ?? 07/12/2016 02:06 pm Narrative 07/12/2016 2:07 PM EST Thyroid ?(Signed Final 07/12/2016 02:06 pm) PATIENT INFO: ID #: ? [id number] ?: [birth year] (70 yrs) Name: ? LAUREN BENITEZ ?Visit Date: 07/12/2016 01:53 pm PERFORMED BY: Performed By: ? Regla Ayala RDMS Attending: ?Roberto JUÁREZ, Selina Corona. Associate: ?Mingo JUÁREZ, Ayo Bruno Referred By: ?FLORENTIN MOSQUEDA DMD Location: ? [place] SERVICE(S) PROVIDED: ??USTN - Soft Tissue Neck or Head - [id number] ? [id number] INDICATIONS: ??1 year history of right buccal/cheek and ??perimandibular swelling COMPARISON: No -------- HISTORY: -------- Patient had right submandibular swelling 3 months ago. No symptoms at this time. ADDITIONAL FINDINGS: Right submandibular region scanned. ??Small lymph nodes seen. ??No mass seen. Procedure Note Selina Mejia MD - 07/12/2016 Thyroid (Signed Final 07/12/2016 02:06 pm) PATIENT INFO: ID #: [id number] : 45 (70 yrs) Name: LAUREN BENITEZ Visit Date: 07/12/2016 01:53 pm PERFORMED BY: Performed By: Regla Ayala RDMS Attending: Selina Mejia MD Associate: Ayo Aguila MD Referred By: FLORENTIN MOSQUEDA DMD Location: [place] SERVICE(S) PROVIDED: USTN - Soft Tissue Neck or Head - [id number] INDICATIONS: 1 year history of right buccal/cheek [...] tissues documented in this encounter Care Teams Cooker Sulfite Relationship Specialty Start Date End Date Darlin Puckett PA [address] [place] [address] PCP - General Family Medicine 01/04/16 04/19/20 documented as of this encounter
[2024-06-10 19:56] LABS: ALT 25 U/L (14-59); AST 25 U/L (15-37); Albumin 3.6 g/dL (3.4-5.0); Alkaline Phosphatase 108 U/L (46-116); Anion Gap 7.2 mmol/L (3-11); BUN 34 mg/dL (7-18); Bilirubin, Total 0.27 mg/dL (0.2-1.0); CO2 30.8 mmol/L (21.0-32.0); CREATININE 1.6 mg/dL (0.55-1.02); Calcium 9.4 mg/dL (8.5-10.1); Calculated LDL 114 mg/dL (<100); Chloride 107 mmol/L (98-107); Cholesterol 203 mg/dL (<200); Estimated GFR 32.81 (mL/min/1.73m2); Glucose 123 mg/dL (74-106); HDL Cholesterol 52 mg/dL (40-60); Potassium 4.3 mmol/L (3.5-5.1); Sodium 145 mmol/L (136-145); Total Protein 7.2 g/dL (6.4-8.2); Triglyceride 185 mg/dL (<150)
== END 2024-06-10 18:27 | disposition home or self-care (01) ==
LOC: NCHCN 18:26
PROVIDERS: PCP Physician Assistant Medical; Visit Provider Physician Assistant Medical
DX: E78.5 Hyperlipidemia, unspecified (principal)
CPT/HCPCS: 80053; 80061

== ENCOUNTER 2024-07-02 01:44 | Outpatient (CLI) | payer MEDICARE, BC, SELFPAY ==
--- NOTE | 2024-07-02 | DI.DEXA_ITS ---
Exam(s) XR DEXA BONE DENSITY W/WO DIA EXAM: XR DEXA BONE DENSITY W/WO DIA CLINICAL HISTORY: Asymptomatic menopausal state, Z78.0, screening for osteoporosis TECHNIQUE: Routine DEXA evaluation of the lumbar spine, hip, or forearm. COMPARISON: No exams were available for comparison FINDINGS: Performed on a Hologic unit. Lateral image: No compression fracture evident. Lumbar Spine total T-score: -0.1 which is within normal range Hip total T-score:-2.4 which is in osteopenia range Independent reading at the level of the femoral neck yields T-score of -3.2 which is in osteoporosis range Forearm total T-score: Not performed IMPRESSION: Bone mineral density measures in the normal range for the lumbar spine but osteoporosis range at the femoral neck.. Fracture risk is high at the hip level and low at the lumbar spine level. Note: Any spine fracture indicates 5x risk for subsequent spine fracture and 2x risk for subsequent h ip fracture. World Health Organization criteria for BMD interpretation classify patients: Normal...... T- Score at or above -1.0 Osteopenic... T- Score between -1.0 and -2.5 Osteoporosis... T-Score at or below -2.5
== END 2024-07-02 02:04 ==
LOC: DI 01:44
PROVIDERS: PCP Physician Assistant Medical; Visit Provider Physician Assistant Medical
DX: Z78.0 Asymptomatic menopausal state (principal); Z13.820 Encounter for screening for osteoporosis; M85.89 Other specified disorders of bone density and structure, multiple sites
CPT/HCPCS: 77080

== ENCOUNTER 2024-12-08 15:28 | Outpatient (REF) | payer MEDICARE, BC, SELFPAY ==
[2024-12-08 19:31] LABS: Abs Immature Grans 0.02 10^3/uL (0.0-0.06); Absolute Basophil Count 0.03 10^3/uL (0.0-0.2); Absolute Eosinophil Count 0.13 10^3/uL (0.0-0.7); Absolute Lymphocyte Count 1.26 10^3/uL (1.2-3.4); Absolute Monocyte Count 0.45 10^3/uL (0.1-0.8); Absolute Neutrophil Count 4.73 10^3/uL (1.2-6.7); Basophils % 0.5 %; HCT 38.1 % (36.0-46.0); HGB 12.1 g/dL (11.2-15.7); Immature Grans % 0.3 %; MCH 29.3 pg (27.0-33.0); MCHC 31.8 % (32.0-36.0); MCV 92 fL (80-95); MPV 10.2 fL (8.0-11.0); Monocytes % 6.8 %; Neutrophils % 71.4 %; Platelet Count 224 10^3/uL (130-400); RBC 4.13 10^6/uL (3.93-5.22); RDW 12.9 % (11.7-14.6); RDW-SD 43.7 fL; WBC 6.62 10^3/uL (4.4-10.8)
[2024-12-08 20:14] LABS: Anion Gap 9.9 mmol/L (3-11); BUN 27 mg/dL (7-18); CO2 29.1 mmol/L (21.0-32.0); CREATININE 1.4 mg/dL (0.55-1.02); Calcium 8.9 mg/dL (8.5-10.1); Chloride 101 mmol/L (98-107); Estimated GFR 38.27 (mL/min/1.73m2); Glucose 94 mg/dL (74-106); Sodium 140 mmol/L (136-145); TSH (W/Ref FT4) 2.47 uIU/mL (0.36-3.74); Vitamin D 25 Total 53 ng/mL (30-100)
== END 2024-12-08 15:29 | disposition home or self-care (01) ==
LOC: NCHCN 15:28
PROVIDERS: PCP Physician Assistant Medical; Visit Provider Physician Assistant Medical
DX: R53.83 Other fatigue (principal); N18.30 Chronic kidney disease, stage 3 unspecified; M81.0 Age-related osteoporosis without current pathological fracture
CPT/HCPCS: 80048; 82306; 84443; 85025

== ENCOUNTER 2024-12-09 12:19 | Outpatient (REF) | payer MEDICARE, BC, SELFPAY ==
[2024-12-09 22:30] LABS: COMMENT (LAB VIEW ONLY) 47.72 mg/dL; Microalb ug/mg Crea 4.6 ug/mg Cr
== END 2024-12-09 12:20 | disposition home or self-care (01) ==
LOC: NCHCN 12:19
PROVIDERS: PCP Physician Assistant Medical; Visit Provider Physician Assistant Medical
DX: N18.30 Chronic kidney disease, stage 3 unspecified (principal)
CPT/HCPCS: 82043; 82570

== ENCOUNTER 2025-05-05 18:09 | Outpatient (REF) | payer MEDICARE, BC, SELFPAY ==
[2025-05-05 20:24] LABS: ALT 22 U/L (14-59); AST 22 U/L (15-37); Albumin 3.6 g/dL (3.4-5.0); Alkaline Phosphatase 118 U/L (46-116); Anion Gap 6.4 mmol/L (3-11); BUN 38 mg/dL (7-18); Bilirubin, Total 0.2 mg/dL (0.2-1.0); CO2 29.6 mmol/L (21.0-32.0); Calcium 8.8 mg/dL (8.5-10.1); Calculated LDL 112 mg/dL (<100); Chloride 104 mmol/L (98-107); Cholesterol 185 mg/dL (<200); Estimated GFR 35.23 (mL/min/1.73m2); Glucose 107 mg/dL (74-106); HDL Cholesterol 46 mg/dL (>or=50); Potassium 4.2 mmol/L (3.5-5.1); Sodium 140 mmol/L (136-145); Total Protein 7.2 g/dL (6.4-8.2); Triglyceride 138 mg/dL (<150)
== END 2025-05-05 18:10 | disposition home or self-care (01) ==
LOC: NCHCN 18:09
PROVIDERS: PCP Physician Assistant Medical; Visit Provider Physician Assistant Medical
DX: N18.30 Chronic kidney disease, stage 3 unspecified (principal); E78.5 Hyperlipidemia, unspecified
CPT/HCPCS: 80053; 80061

== ENCOUNTER 2025-07-14 11:31 | Observation (INO) | payer MEDICARE, BC, SELFPAY ==
[2025-07-14 11:34] VITALS: BP 109/70; PULSE 100; RESP 20; TEMP 36.6; O2SAT 94
[2025-07-14 11:37] VITALS: BP 109/70; PULSE 100; RESP 20; TEMP 36.6; O2SAT 94
[2025-07-14] MEDS: Normal Saline 1,000 ML 1000 ML IV (13:07)
[2025-07-14 13:12] LABS: Abs Immature Grans 0.02 10^3/uL (0.0-0.06); HCT 40.2 % (36.0-46.0); HGB 13.8 g/dL (11.2-15.7); Immature Grans % 0.3 %; MCH 28.9 pg (27.0-33.0); MCHC 34.3 % (32.0-36.0); MCV 84 fL (80-95); MPV 9.4 fL (8.0-11.0); Platelet Count 218 10^3/uL (130-400); RBC 4.78 10^6/uL (3.93-5.22); RDW 11.9 % (11.7-14.6); RDW-SD 35.9 fL; WBC 6.69 10^3/uL (4.4-10.8)
[2025-07-14 13:32] LABS: Magnesium 2.2 mg/dL (1.6-2.6)
[2025-07-14 13:39] LABS: ALT 47 U/L (10-49); AST 38 U/L (<34); Albumin 4.5 g/dL (3.4-5.0); Alkaline Phosphatase 162 U/L (46-116); Anion Gap 12.9 mmol/L (3-11); BUN 44 mg/dL (9-23); Bilirubin, Total 0.60 mg/dL (0.2-1.2); CO2 23.9 mmol/L (20.0-31.0); Calcium 9.2 mg/dL (8.3-10.6); Chloride 99 mmol/L (98-107); Glucose 88 mg/dL (74-106); Potassium 2.9 mmol/L (3.5-5.1); Sodium 136 mmol/L (136-145); Total Protein 7.8 g/dL (5.7-8.2)
[2025-07-14 13:41] VITALS: BP 145/56; PULSE 81; RESP 17; TEMP 36.6
[2025-07-14] MEDS: Potassium Chloride 20 MEQ TABCR 40 MEQ PO (13:58)
--- NOTE | 2025-07-14 14:00 | DI.CT_ITS ---
Exam(s) CT ABDOMEN PELVIS W EXAM: CT ABDOMEN PELVIS W CLINICAL HISTORY: LLQ pain. TECHNIQUE: Imaging Protocol: Axial computed tomography images with coronal and sagittal reformatted images were created and reviewed CONTRAST MATERIAL: Intravenous: Omnipaque 350 Contrast volume:75 ml Oral: no COMPARISON: CT CT CHEST/ABD/PEL WO from 01/15/2019 FINDINGS: ABDOMEN and PELVIS: Lung Bases: No acute findings. Liver: Normal density. No suspicious mass. Mild biliary dilation, stable. Pancreas: Normal density. No abnormal calcifications or inflammatory process. No evidence of mass. Spleen: Normal. Kidneys: Left renal atrophy again noted. No radiodense stones. No obstructive uropathy. No suspicious masses seen. Adrenal glands: No masses seen. Vasculature: Abdominal aorta non-dilated. Soft tissues: Unremarkable. Bladder: No gross wall thickening. No calculi.No focal mass. Bowel: Ingested tablets noted in the stomach. No obstruction. Diffuse wall thickening of the colon. Some fluid but very little stool. Findings consistent with colitis. Peritoneal cavity: Trace fluid in the pelvis. No focal collection. Mild mesenteric stranding around the colon. No free air. Bones: Scoliosis and degenerative changes. Reproductive organs: Unremarkable. Lymph nodes: No pathologically enlarged lymph nodes. IMPRESSION:: Wall thickening of the colon consistent colitis. Findings called to ER provider. RADIATION DOSE DELIVERED: 610mGy.cm Total DLP DATA REPOSITORY: All CT scans at this facility are submitted to the National Radiology Data Registry (NRDR) Dose Index Registry (DIR) with the [employer] (ACR). RADIATION OPTIMIZATION: All CT scans at this facility use at least one of these dose optimization techniques: automated exposure control; mA and/or kV adjustment per patient size (includes targeted exams where dose is matched to clinical indication); or iterative reconstruction.
--- NOTE | 2025-07-14 14:15 | RT.EKG_ITS ---
APPROVED REPORT Exam: Resting ECG Reason for Exam: hypokalemia Patient Location: E HR:83 bpm ECG Measurements Heart Rate 83 AXIS NM 226 P 50 QRSd 138 QRS 45 QT 436 T -40 QTc 514 Conclusion Sinus rhythm...normal P axis, V-rate 60- 99 Prolonged NM interval...NM >220, V-rate 50- 90 Right bundle branch block...QRSd>120, terminal axis(90,270) Nonspecific T abnormalities, lateral leads...T <-0.10mV, I aVL V5 V6
[2025-07-14] MEDS: Omnipaque 350 MG/ML 100 ML BTL IJ (14:58)
[2025-07-14] MEDS: Normal Saline - Diluent 50 ML VIAL IJ (14:58)
[2025-07-14] MEDS: Loperamide 2 MG CAP 4 MG PO (16:06)
[2025-07-14] MEDS: AZITHROMYCIN 500 MG in Normal Saline 250 ML 250 MG IVPB (16:06)
--- NOTE | 2025-07-14 16:12 | W.ED.GENAD ---
Discharge Plan Disposition Patient Disposition: Admit to [facility] Discharge Details Clinical Impression: Colitis, Hypokalemia, Dehydration Primary Care Provider: Darlin Puckett ED Provider: Huang Laura Home Meds and New Rx's Prescriptions: No Action simvastatin 40 MG tablet 40 mg PO .OTHER DAY omeprazole 20 MG capsule,delayed release(DR/EC) 20 mg PO DAILY cholecalciferol (vitamin D3) 1,000 UNIT tablet 1,000 unit PO BID calcium carbonate-vitamin D3 [Calcarb 600 With Vitamin D] 1 EACH tablet 1 ea PO BID Adults' Daily Formula (folic) 1 EACH tablet 1 tab-cap PO DAILY losartan [Cozaar] 50 MG tablet 50 mg PO DAILY Zyrtec 10 MG capsule 10 mg PO DAILY sertraline 100 MG tablet 1 tab PO DAILY atenolol 25 mg tablet 25 mg PO DAILY rosuvastatin [Crestor] 5 mg tablet 5 mg PO DAILY HPI General Date/Time Provider Initiated Documentation: 07/14/25 11:33. HPI Narrative: MDM/Narrative: Initial Assessment: 79-year-old female with diarrhea, greenish-brown stool, initial fever of 101°F, weakness, abdominal soreness improving post-defecation. Imodium ineffective. Differential Diagnosis: - Diverticulitis: Abdominal pain, fever. CT scan to rule out. - Appendicitis: Abdominal pain, fever. CT scan to rule out. - Dehydration: Elevated heart rate. Administer IV fluids. ED Course: - Administered IV fluids - Blood work obtained - CT scan consistent with colitis. Labs notable for moderate to severe hypokalemia. Vital signs improved following rehydration. However patient is having bowel movements every 20 to 30 minutes. Given advanced age and hypokalemia will admit for inpatient care. Final Assessment: Administered IV fluids for dehydration. Blood work and CT scan obtained to rule out diverticulitis and appendicitis. Clinical Impression: - Colitis - Hypokalemia Disposition: Admit to [facility] HPI: The patient is a 79-year-old female who has been experiencing diarrhea since yesterday afternoon. She reports episodes occurring every 1.5 hours, with a slightly decreased frequency over time. She has not experienced any chills, cough, or body aches. Initially, she had a fever of 101°F, which has since resolved. The stools are greenish-brown in color and do not contain any blood. She feels abdominal discomfort after drinking water, which is relieved after defecation. She has not had any recent surgeries, although she has a history of gallbladder surgery. She tried Imodium, but it was ineffective. She does not report any hot flashes, sweating, flushing, or tinnitus. She feels weak but has not been in contact with anyone who is sick. She has an allergy to Dilaudid and a history of bowel tumor removal. Her last colonoscopy was 10 years ago, and the results were normal. She recently underwent cataract surgery. ROS: Negative besides as mentioned above Exam: Gen: A&O NAD HEENT: NCAT, EOMI, not icteric. External ears normal. No rhinorrhea. Moist mucous membranes. Neck: Supple, full range of motion, no observable masses, No meningeal sign. Lungs: No Respiratory distress. CV: RRR, no edema. Abdomen: Soft, nondistended, No rebound tenderness. Mild diffuse tenderness to palpation MSK: No joint swelling, no redness. Skin: No rashes, petechiae, lesions. Normal color per patient. Neuro: Normal Gait, Grossly intact. Psych: Appropriate for situation. Rhythm: NSR Rate: 83 Beeler: Normal axis Intervals: Normal intervals Other findings: RBBB,No acute ST segment or T wave changes to suggest acute ischemia. Labs: Laboratory Tests Range/Units 07/14/25 07/14/25 12:45 13:12 WBC (4.4-10.8) 10^3/uL 6.69 RBC (3.93-5.22) 10^6/uL 4.78 Hgb (11.2-15.7) g/dL 13.8 Hct (36.0-46.0) % 40.2 MCV (80-95) fL 84 MCH (27.0-33.0) pg 28.9 MCHC (32.0-36.0) % 34.3 RDW (11.7-14.6) % 11.9 Plt Count (130-400) 10^3/uL 218 MPV (8.0-11.0) fL 9.4 Immature Gran % % 0.3 Neutrophils % % 74.4 Lymphocytes % % 12.3 Monocytes % % 12.6 Eosinophils % % 0.0 Basophils % % 0.4 Nucleated RBC % (0.0-0.3) % 0.0 Absolute Neutrophils (1.2-6.7) 10^3/uL 4.98 Absolute Lymphocytes (1.2-3.4) 10^3/uL 0.82 L Absolute Monocytes (0.1-0.8) 10^3/uL 0.84 H Absolute Eosinophils (0.0-0.7) 10^3/uL 0.00 Absolute Basophils (0.0-0.2) 10^3/uL 0.03 VBG Lactate (<or=2.0) mmol/L 1.1 Sodium (136-145) mmol/L 136 Potassium (3.5-5.1) mmol/L 2.9 L Chloride (98-107) mmol/L 99 Carbon Dioxide (20.0-31.0) mmol/L 23.9 Anion Gap (3-11) mmol/L 12.9 H BUN (9-23) mg/dL 44 H Creatinine (0.55-1.02) mg/dL 1.8 H Est GFR (CKD-EPI 2020) (mL/min/1.73m2) 27.62 Glucose (74-106) mg/dL 88 Calcium (8.3-10.6) mg/dL 9.2 Magnesium (1.6-2.6) mg/dL 2.2 Total Bilirubin (0.2-1.2) mg/dL 0.60 AST (<34) U/L 38 H ALT (10-49) U/L 47 Alkaline Phosphatase (46-116) U/L 162 H Total Protein (5.7-8.2) g/dL 7.8 Albumin (3.4-5.0) g/dL 4.5 Radiology: Exam(s) CT ABDOMEN PELVIS W EXAM: CT ABDOMEN PELVIS W CLINICAL HISTORY: LLQ pain. TECHNIQUE: Imaging Protocol: Axial computed tomography images with coronal and sagittal reformatted images were created and reviewed CONTRAST MATERIAL: Intravenous: Omnipaque 350 Contrast volume:75 ml Oral: no COMPARISON: CT CT CHEST/ABD/PEL WO from 01/15/2019 FINDINGS: ABDOMEN and PELVIS: Lung Bases: No acute findings. Liver: Normal density. No suspicious mass. Mild biliary dilation, stable. Pancreas: Normal density. No abnormal calcifications or inflammatory process. No evidence of mass. Spleen: Normal. Kidneys: Left renal atrophy again noted. No radiodense stones. No obstructive uropathy. No suspicious masses seen. Adrenal glands: No masses seen. Vasculature: Abdominal aorta non-dilated. Soft tissues: Unremarkable. Bladder: No gross wall thickening. No calculi.No focal mass. Bowel: Ingested tablets noted in the stomach. No obstruction. Diffuse wall thickening of the colon. Some fluid but very little stool. Findings consistent with colitis. Peritoneal cavity: Trace fluid in the pelvis. No focal collection. Mild mesenteric stranding around the colon. No free air. Bones: Scoliosis and degenerative changes. Reproductive organs: Unremarkable. Lymph nodes: No pathologically enlarged lymph nodes. IMPRESSION:: Wall thickening of the colon consistent colitis. Findings called to ER provider. Related Data Home Medications Medication Instructions Recorded Confirmed calcium 600 mg (as 1 ea PO BID 12/03/12 07/14/25 carbonate)-vitamin D3 10 mcg (400 unit) tablet (Calcarb with Vitamin D) cholecalciferol (vitamin D3) 25 1,000 unit PO BID 12/03/12 07/14/25 mcg (1,000 unit) tablet multivitamin-ferrous 1 tab-cap PO DAILY 12/03/12 07/14/25 fumarate-folic acid 18 mg-400 mcg tablet (Adults' Daily Formula (with folic acid)) omeprazole 20 mg capsule,delayed 20 mg PO DAILY 12/03/12 07/14/25 release simvastatin 40 mg tablet 40 mg PO .OTHER DAY 12/03/12 07/14/25 cetirizine 10 mg capsule (Zyrtec) 10 mg PO DAILY 08/09/17 07/14/25 losartan 50 mg tablet (Cozaar) 50 mg PO DAILY 08/09/17 07/14/25 sertraline 100 mg tablet 1 tab PO DAILY 09/05/17 07/14/25 atenolol 25 mg tablet 25 mg PO DAILY 07/14/25 07/14/25 rosuvastatin 5 mg tablet (Crestor) 5 mg PO DAILY 07/14/25 07/14/25 Allergies Allergy/AdvReac Type Severity Reaction Status Date / Time hydromorphone AdvReac Severe severe Verified 11/12/25 11:39 vomiting General Stated Complaint: Abd Prob GENEVA: 3 Course Vital Signs Vital signs: Vital Signs Temperature 36.6 C 07/14/25 11:34 Pulse 100 H 07/14/25 11:34 Respiratory Rate 20 07/14/25 11:34 Blood Pressure 109/70 07/14/25 11:34 Pulse Oximetry 94 07/14/25 11:34 Temperature 36.6 C 07/14/25 13:41 Temperature Source Oral 07/14/25 13:41 Pulse 81 07/14/25 13:41 Respiratory Rate 17 07/14/25 13:41 Respiratory Effort Normal 07/14/25 13:41 Respiratory Depth Normal 07/14/25 13:41 Respiratory Pattern Normal 07/14/25 13:41 Blood Pressure 145/56 H 07/14/25 13:41 Blood Pressure Mean 85 07/14/25 13:41 Blood Pressure Position Sitting 07/14/25 11:37 Pulse Oximetry 94 07/14/25 11:37 Oxygen Delivery Method Room Air 07/14/25 13:41 Oxygen Flow Rate 0 07/14/25 13:41 Lab/Test Results Lab/Test Results: Laboratory Tests Range/Units 07/14/25 07/14/25 12:45 13:12 WBC (4.4-10.8) 10^3/uL 6.69 RBC (3.93-5.22) 10^6/uL 4.78 Hgb (11.2-15.7) g/dL 13.8 Hct (36.0-46.0) % 40.2 MCV (80-95) fL 84 MCH (27.0-33.0) pg 28.9 MCHC (32.0-36.0) % 34.3 RDW (11.7-14.6) % 11.9 Plt Count (130-400) 10^3/uL 218 MPV (8.0-11.0) fL 9.4 Immature Gran % % 0.3 Neutrophils % % 74.4 Lymphocytes % % 12.3 Monocytes % % 12.6 Eosinophils % % 0.0 Basophils % % 0.4 Nucleated RBC % (0.0-0.3) % 0.0 Absolute Neutrophils (1.2-6.7) 10^3/uL 4.98 Absolute Lymphocytes (1.2-3.4) 10^3/uL 0.82 L Absolute Monocytes (0.1-0.8) 10^3/uL 0.84 H Absolute Eosinophils (0.0-0.7) 10^3/uL 0.00 Absolute Basophils (0.0-0.2) 10^3/uL 0.03 VBG Lactate (<or=2.0) mmol/L 1.1 Sodium (136-145) mmol/L 136 Potassium (3.5-5.1) mmol/L 2.9 L Chloride (98-107) mmol/L 99 Carbon Dioxide (20.0-31.0) mmol/L 23.9 Anion Gap (3-11) mmol/L 12.9 H BUN (9-23) mg/dL 44 H Creatinine (0.55-1.02) mg/dL 1.8 H Est GFR (CKD-EPI 2020) (mL/min/1.73m2) 27.62 Glucose (74-106) mg/dL 88 Calcium (8.3-10.6) mg/dL 9.2 Magnesium (1.6-2.6) mg/dL 2.2 Total Bilirubin (0.2-1.2) mg/dL 0.60 AST (<34) U/L 38 H ALT (10-49) U/L 47 Alkaline Phosphatase (46-116) U/L 162 H Total Protein (5.7-8.2) g/dL 7.8 Albumin (3.4-5.0) g/dL 4.5 PFSH All Active Problems (Updated 07/14/25 @ 16:08 by Huang Laura MD) Dehydration (Acute) Hypokalemia (Acute) Colitis (Acute) Medical History (Updated 07/14/25 @ 16:08 by Huang Laura MD) Gastroesophageal reflux disease Hyperlipidemia Depression Benign hypertension Osteoporosis Osteoarthritis of knees, bilateral Squamous cell carcinoma in situ of skin Surgical History Ligation of fallopian tube Fracture, Open Treatment (09/05/12) ORIF left distal radius and ulnar styloid fractures Fracture, Closed Treatment (08/20/11) left distal radius and ulnar styloid fracture closed reduction and cast application Colonoscopy - MAC (09/09/17) Cholecystectomy Appendectomy Social History Smoking/Tobacco Use Status: Former Tobacco Use Smoking risk assessment performed?: Yes Alcohol Intake: never Drug use: Never Do you feel safe at home: Yes Do you feel safe in your relationship?: Yes PAWSS Have you Been Recently Intoxicated or Drunk Within the Last 30 days?: No Have you Ever Experienced Previous Episodes of Alcohol Withdrawal?: No Have you ever Experienced Withdrawal Seizures?: No Have you ever Experienced Delirium Tremens(DT)s?: No Have you ever undergone Alcohol Rehabilitation Treatment (i.e, inpt ot outpatient treatment programs)?: No Have you ever Experienced Blackouts?: No Have you ever Combined Alcohol with other Downers within the last 90 days?: No Have you ever Combined Alcohol with any other Substance of Abuse during the last 90 days?: No Positive Blood Alcohol level on Presentation? [PCS.BAL]: No Evidence of Increased Autonomic Activity (i.e. HR>120, tremor, sweating, agitation, nausea)?: No Result: 0
--- NOTE | 2025-07-14 16:17 | W.PM.HP.N ---
Date of service: 07/14/25 Time of Service: 16:00 Assessment and Plan Assessment and plan (1) Colitis: Status: Acute Assessment and plan: Diarrheal illness with imaging suggestive of colitis Admit for observation, IV fluids, potassium repletion No further antibiotics at this time (2) Hypokalemia: Status: Acute Assessment and plan: Repleted orally in ED Will give K-rider in IV fluid overnight at maintenance rate (3) Benign hypertension: Assessment and plan: Continue home atenolol (4) Hyperlipidemia: Assessment and plan: Continue home statin (5) Depression: Assessment and plan: Continue home sertraline History of Present Illness History of Present Illness Chief Complaint: persistent diarrhea Narrative: Lauren Benitez is a 79 year old woman presenting July 14 with diarrhea, fever, weakness and abdominal pain since July 10. She took imodium without relief. She has had episodes of diarrhea every 1-2 hours since July 13 morning. She checked her temperature at home and had 101 Jul 13 morning. She has not had any appetite for 1-2 days. When she drinks water, her stomach cramps, with relief after defecation.She has had a similar episode in the past and was diagnosed with diverticulitis. She has history of abdominal tumor removal and cholecysectomy. Last colonoscopy approximately 2014, uneventful. No chest pain, no SOB, no nausea/vomiting. In the ED she was mildly tachycardic HR 100. EKG without occlusion. CT abdomen/pelvis suggestive of colitis. CBC unremarkable. No lactate elevation. CMP notable for potassium 2.9, anion gap 2.9, BUN 44, creatinine 1.8 against baseline around 1.5. She was given fluid bolus, PO potassium and azithromycin. 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 Surgical History Ligation of fallopian tube Fracture, Open Treatment (09/05/12) ORIF left distal radius and ulnar styloid fractures Fracture, Closed Treatment (08/20/11) left distal radius and ulnar styloid fracture closed reduction and cast application Colonoscopy - MAC (09/09/17) Cholecystectomy Appendectomy Social History Smoking/Tobacco Use Status: Former Tobacco Use Smoking risk assessment performed?: Yes Alcohol Intake: never Drug use: Never Housing: house Do you feel safe at home: Yes Do you feel safe in your relationship?: Yes Meds Allergies and Home Medications Allergies Allergy/AdvReac Type Severity Reaction Status Date / Time hydromorphone AdvReac Severe severe Verified 07/14/25 11:39 vomiting Home Medications Medication Instructions Recorded Confirmed Type calcium 600 mg (as 1 ea PO BID 12/03/12 07/14/25 History carbonate)-vitamin D3 10 mcg (400 unit) tablet (Calcarb with Vitamin D) cholecalciferol (vitamin D3) 25 1,000 unit PO BID 12/03/12 07/14/25 History mcg (1,000 unit) tablet multivitamin-ferrous 1 tab-cap PO DAILY 12/03/12 07/14/25 History fumarate-folic acid 18 mg-400 mcg tablet (Adults' Daily Formula (with folic acid)) omeprazole 20 mg capsule,delayed 20 mg PO DAILY 12/03/12 07/14/25 History release simvastatin 40 mg tablet 40 mg PO .OTHER DAY 12/03/12 07/14/25 History cetirizine 10 mg capsule (Zyrtec) 10 mg PO DAILY 08/09/17 07/14/25 History losartan 50 mg tablet (Cozaar) 50 mg PO DAILY 08/09/17 07/14/25 History sertraline 100 mg tablet 1 tab PO DAILY 09/05/17 07/14/25 History atenolol 25 mg tablet 25 mg PO DAILY 07/14/25 07/14/25 History rosuvastatin 5 mg tablet (Crestor) 5 mg PO DAILY 07/14/25 07/14/25 History Exam Narrative Exam Narrative: General: This is a pleasant man in no distress HEENT: Normocephalic, atraumatic CV: RRR Resp: CTAB Abd: soft, diffusely tender MSK: voluntary motion x4 Neuro: awake, alert, no focal deficits Results Labs 07/14/25 12:45 07/14/25 12:45 Labs: Laboratory Results - last 24 hr 07/14/25 07/14/25 12:45 13:12 WBC 6.69 RBC 4.78 Hgb 13.8 Hct 40.2 MCV 84 MCH 28.9 MCHC 34.3 RDW 11.9 Plt Count 218 MPV 9.4 Immature Gran % 0.3 Neutrophils % 74.4 Lymphocytes % 12.3 Monocytes % 12.6 Eosinophils % 0.0 Basophils % 0.4 Nucleated RBC % 0.0 Absolute Neutrophils 4.98 Absolute Lymphocytes 0.82 L Absolute Monocytes 0.84 H Absolute Eosinophils 0.00 Absolute Basophils 0.03 VBG Lactate 1.1 Sodium 136 Potassium 2.9 L Chloride 99 Carbon Dioxide 23.9 Anion Gap 12.9 H BUN 44 H Creatinine 1.8 H Est GFR (CKD-EPI 2020) 27.62 Glucose 88 Calcium 9.2 Magnesium 2.2 Total Bilirubin 0.60 AST 38 H ALT 47 Alkaline Phosphatase 162 H Total Protein 7.8 Albumin 4.5 Last Vital Signs Temp 36.6 C 07/14/25 13:41 Pulse 81 07/14/25 13:41 Resp 17 07/14/25 13:41 BP 145/56 H 07/14/25 13:41 Pulse Ox 94 07/14/25 11:37 PAWSS Have you Been Recently Intoxicated or Drunk Within the Last 30 days?: No Have you Ever Experienced Previous Episodes of Alcohol Withdrawal?: No Have you ever Experienced Withdrawal Seizures?: No Have you ever Experienced Delirium Tremens(DT)s?: No Have you ever undergone Alcohol Rehabilitation Treatment (i.e, inpt ot outpatient treatment programs)?: No Have you ever Experienced Blackouts?: No Have you ever Combined Alcohol with other Downers within the last 90 days?: No Have you ever Combined Alcohol with any other Substance of Abuse during the last 90 days?: No Positive Blood Alcohol level on Presentation? [PCS.BAL]: No Evidence of Increased Autonomic Activity (i.e. HR>120, tremor, sweating, agitation, nausea)?: No Result: 0 Time Spent Time spent with Patient: 40-54 minutes Time was spent: preparing to see the patient(eg.review tests), obtaining and/or reviewing separately otained hiistory, ordering medications,tests, procedures, referring, communicating with other health pediatric care coordinator, indepentently interpreting results, counseling the patient and care coordination
--- NOTE | 2025-07-14 16:53 | W.PC.ACHO ---
Registration Status: REG ER Primary Language: Preferred Language: Uzbek ED Information & Data Chief Complaint Abd Prob 07/14/25 16:15 Triage Note Diarrhea since saturday (07/14/25 11:34 8) afternoon. Use of OCT medications like Imodium did not make a difference in symptoms. abd pain after drinking water. BM does not seem unusual according to PT . 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 (Last Reviewed 01/15/19 @ 15:45 by YULIET Hodges) Ligation of fallopian tube Fracture, Open Treatment (09/05/12) Fracture, Closed Treatment (08/20/11) Colonoscopy - MAC (09/09/17) Cholecystectomy Appendectomy Most Recent Vital Signs Temperature 36.6 C 07/14/25 13:41 Temperature Source Oral 07/14/25 13:41 Pulse 81 07/14/25 13:41 Respiratory Rate 17 07/14/25 13:41 Respiratory Effort Normal 07/14/25 13:41 Respiratory Depth Normal 07/14/25 13:41 Respiratory Pattern Normal 07/14/25 13:41 Blood Pressure 145/56 H 07/14/25 13:41 Blood Pressure Mean 85 07/14/25 13:41 Blood Pressure Position Sitting 07/14/25 11:37 Pulse Oximetry 94 07/14/25 11:37 Oxygen Delivery Method Room Air 07/14/25 13:41 Oxygen Flow Rate 0 07/14/25 13:41 Allergies hydromorphone Adverse Reaction (Severe, Verified 07/14/25 11:39) severe vomiting Active Medications Generic Name Dose Route Start Last Admin Trade Name Freq PRN Reason Stop Dose Admin Iohexol 100 ml 07/14/25 15:00 07/14/25 14:58 Omnipaque 350 Mg/Ml 100 Ml Btl IJ 08/13/25 23:59 75 ml DIRECTED KVNG Administration Sodium Chloride 50 ml 07/14/25 15:00 07/14/25 14:58 Normal Saline - Diluent 50 Ml Vial IJ 50 ml DIRECTED KVNG Administration IV IV Catheter Type [Right Upper Peripheral IV arm] IV Catheter Gauge [Right Upper 18 arm] Diet Orders Category Date Time Status Regular/Normal [DIET] Nutrition 07/14/25 Dinner Active Diagnostics 07/14/25 07/14/25 Range/Units 13:12 12:45 WBC 6.69 (4.4-10.8) 10^3/uL RBC 4.78 (3.93-5.22) 10^6/uL Hgb 13.8 (11.2-15.7) g/dL Hct 40.2 (36.0-46.0) % MCV 84 (80-95) fL MCH 28.9 (27.0-33.0) pg MCHC 34.3 (32.0-36.0) % RDW 11.9 (11.7-14.6) % Plt Count 218 (130-400) 10^3/uL MPV 9.4 (8.0-11.0) fL Immature Gran % 0.3 % Neutrophils % 74.4 % Lymphocytes % 12.3 % Monocytes % 12.6 % Eosinophils % 0.0 % Basophils % 0.4 % Nucleated RBC % 0.0 (0.0-0.3) % Absolute Neutrophils 4.98 (1.2-6.7) 10^3/uL Absolute Lymphocytes 0.82 L (1.2-3.4) 10^3/uL Absolute Monocytes 0.84 H (0.1-0.8) 10^3/uL Absolute Eosinophils 0.00 (0.0-0.7) 10^3/uL Absolute Basophils 0.03 (0.0-0.2) 10^3/uL VBG Lactate 1.1 (<or=2.0) mmol/L Sodium 136 (136-145) mmol/L Potassium 2.9 L (3.5-5.1) mmol/L Chloride 99 (98-107) mmol/L Carbon Dioxide 23.9 (20.0-31.0) mmol/L Anion Gap 12.9 H (3-11) mmol/L BUN 44 H (9-23) mg/dL Creatinine 1.8 H (0.55-1.02) mg/dL Est GFR (CKD-EPI 2020) 27.62 (mL/min/1.73m2) Glucose 88 (74-106) mg/dL Calcium 9.2 (8.3-10.6) mg/dL Magnesium 2.2 (1.6-2.6) mg/dL Total Bilirubin 0.60 (0.2-1.2) mg/dL AST 38 H (<34) U/L ALT 47 (10-49) U/L Alkaline Phosphatase 162 H (46-116) U/L Total Protein 7.8 (5.7-8.2) g/dL Albumin 4.5 (3.4-5.0) g/dL Intake and Output - 24 Hour Total 07/14/25 11:31 thru 07/14/25 16:01 Intake Total 1000 Balance 1000 Weight 78.471 kg Intake: IV 1000 Falls Risk Assessment History of Falls No History 07/14/25 11:37 Contributing Factors No Factors 07/14/25 11:37 Ambulatory Aids Independent 07/14/25 11:37 Tubes/Lines None 07/14/25 11:37 Gait Evaluation No gait disturbance 07/14/25 11:37 Cognition No cognitive impairment 07/14/25 11:37 Fall Total Score 0 07/14/25 11:37 Level of Risk Standard/Low Risk 07/14/25 11:37 Problems (Last Reviewed 01/15/19 @ 15:45 by YULIET Hodges) Dehydration (Acute) Hypokalemia (Acute) Colitis (Acute) Attestation Statement: By documenting the first initial, last name, and credentials of the reporting nurse below, both parties acknowledge that all relevant information regarding the patient handoff has been communicated, and that all questions have been addressed to ensure continuity and safety of care. Additional Patient Information/Comments: Paged at [phone], report called at [phone]. 18 G right upper arm that needed to be US guided. No swallow issues. Multiple bouts of diarrhea. Report Received From: Sunitha Nix ED RN
[2025-07-14 17:20] VITALS: BP 130/70; PULSE 91; RESP 17; TEMP 36.3; O2SAT 96
[2025-07-14] MEDS: POTASSIUM CHLORIDE/0.9% NACL 1,000 ML 75 MEQ IV (19:05)
[2025-07-14 20:23] VITALS: BP 130/68; PULSE 85; RESP 18; TEMP 35.6; O2SAT 95
[2025-07-14 22:23] LABS: Glucose Negative (Negative)
[2025-07-14 22:29] LABS: C & S Indicated? Yes
[2025-07-14 23:37] VITALS: BP 124/62; PULSE 77; RESP 18; TEMP 35.8; O2SAT 94
[2025-07-15 03:43] VITALS: BP 145/72; PULSE 89; RESP 19; TEMP 36.2; O2SAT 95
[2025-07-15 07:15] LABS: Magnesium 1.9 mg/dL (1.6-2.6)
[2025-07-15 07:17] LABS: ALT 29 U/L (10-49); AST 23 U/L (<34); Albumin 3.3 g/dL (3.4-5.0); Alkaline Phosphatase 112 U/L (46-116); Anion Gap 8.8 mmol/L (3-11); BUN 32 mg/dL (9-23); Bilirubin, Total 0.30 mg/dL (0.2-1.2); CO2 22.2 mmol/L (20.0-31.0); Calcium 8.1 mg/dL (8.3-10.6); Chloride 108 mmol/L (98-107); Glucose 81 mg/dL (74-106); Potassium 3.5 mmol/L (3.5-5.1); Sodium 139 mmol/L (136-145); Total Protein 5.9 g/dL (5.7-8.2)
[2025-07-15 07:31] LABS: EPI 027-NAP1-B1 PRESUMPTIVE NEGATIVE
[2025-07-15 07:49] VITALS: BP 124/63; PULSE 77; RESP 17; TEMP 36.7; O2SAT 97
--- NOTE | 2025-07-15 08:04 | PDOC.CMIN ---
Date of service: 07/15/25 Time of Service: 08:42 Care Management Initial Assmt Initial Assessment Reason for Hospitalization: Hypokalemia Functional Status/Living Situation Patient Presentation: Lauren was lying down and awake when CM met with her. Lauren presented to the ED for evaluation of diarrhea since the previous afternoon. Per report, she has diarrheal illness with imaging suggestive of colitis. Town of Residence: [place] Resides with: Spouse Significant Other/Family: Local Natural Supports: Family Instrumental Activities of Daily Living (ADLs): Independent Medications Medication Management: No Issues/Barriers identified Advance Directives Advance Directives: Do you have an Advance Directive: Y 09/09/17, 08:37 AD On File at [facility]: N 06/13/20, 09:37 Date Asked 12/09/24 12/09/24, 10:43 AD Date Reviewed 04/30/22 04/30/22, 11:37 COLST On File at [facility] COLST Date Scanned Code Status Resuscitation Status DNR/DNI Portal Pt does not currently have a portal and education provided: Yes Insurance Coverage/Financial Issues Insurance: Medicare Part A & B - [id number] BC/BS [facility] - [id number] Care Team Visit Care Team Role Provider Type YULIET Russell Primary Care Provider [employer] TECHNICIAN Huang Laura MD Emergency Provider [facility] STAFF PHYSICIAN Jayant Fitzpatrick MD Admit Provider [facility] STAFF PHYSICIAN Attending Provider Discharge Potential Discharge Needs: PCP F/U Appt Anticipated Barriers to Discharge: None Identified Patient/Family Education Needs: Review discharge instructions, discuss Ask Me Three Transportation: Private vehicle Plan: Anticipate Lauren will be discharged home once medically ready. It is recommended she follow up with her community provider and continue per her plan of care. She will be transported via private vehicle. CM will follow. Social Determinants of Health Screening Social Determinants of health last assessed in clinic: 07/15/25 Will the Patient Participate in the Screening?: Yes Do you worry about having a steady place to live?: no Problems where you live: no known problems In the past 12 months, have you had to go without electric, gas, oil or water in your home?: no 1. Within the past 12 months, we worried whether our food would run out before we got money to buy more.: Never true 2. Within the past 12 months, the food we bought just didn't last and we didn't have money to get more.: Never true Has lack of transportation kept you from medical appointments or from doing things needed for daily living?: no Has anyone in your life made you feel unsafe or unsupported?: no How hard is it for you to pay for the very basics like food, housing, medical care, and heating? Would you say it is:: Not hard at all Do you want help finding or keeping work or a job?: I do not need or want help If for any reason you need help with day-to-day activities such as bathing, preparing meals, shopping, managing finances, etc., do you get the help you need?: I get all the help I need How often do you feel lonely or isolated from those around you?: Never Do you speak a language other than Telugu at home?: No Does the patient want assistance with any of the above?: No PFSH All Active Problems (Updated 07/14/25 @ 17:19 by BRIANA PINEDA) Dehydration (Acute) Hypokalemia (Acute) Colitis (Acute) Medical History (Updated 07/14/25 @ 17:19 by BRIANA PINEDA) Gastroesophageal reflux disease Hyperlipidemia Depression Benign hypertension Osteoporosis Osteoarthritis of knees, bilateral Squamous cell carcinoma in situ of skin Surgical History Ligation of fallopian tube Fracture, Open Treatment (09/05/12) ORIF left distal radius and ulnar styloid fractures Fracture, Closed Treatment (08/20/11) left distal radius and ulnar styloid fracture closed reduction and cast application Colonoscopy - MAC (09/09/17) Cholecystectomy Appendectomy Social History Smoking/Tobacco Use Status: Former Tobacco Use Smoking risk assessment performed?: Yes Alcohol Intake: never Drug use: Never Housing: house Do you feel safe at home: Yes Do you feel safe in your relationship?: Yes
[2025-07-15] MEDS: Losartan 50 MG TAB PO (09:02)
[2025-07-15] MEDS: Normal Saline Flush 10 ML SYR IVP (09:03)
[2025-07-15] MEDS: Rosuvastatin 5 MG TAB PO (09:03)
[2025-07-15] MEDS: Atenolol 25 MG TAB PO (09:03)
[2025-07-15] MEDS: Sertraline 100 MG TAB PO (09:03)
[2025-07-15 11:07] VITALS: BP 113/63; PULSE 66; RESP 17; TEMP 36.6; O2SAT 97
--- NOTE | 2025-07-15 12:11 | DSE_ITS ---
Date of service: 07/15/25 Time of Service: 12:30 DS: Diagnosis Discharge Diagnosis (1) Colitis: Status: Acute Asessment and Plan: Diarrheal illness with imaging suggestive of colitis Admit for observation, IV fluids, potassium repletion No further antibiotics at this time Pain resolved Tolerating PO (2) Hypokalemia: Status: Resolved Asessment and Plan: Due to diarrhea Repleted (3) Benign hypertension: Asessment and Plan: Continue home atenolol (4) Hyperlipidemia: Asessment and Plan: Continue home statin (5) Depression: Asessment and Plan: Continue sertraline Discharge Plan Disposition Patient Disposition: Home Condition: Improving Discharge Details Reason For Visit: Hypokalemia Admit Date/Time: 07/14/25 16:09 Admit Provider: Jayant Fitzpatrick Attending Provider: Jayant Fitzpatrick Primary Care Provider: Darlin Puckett Recommendations for Follow Up Recommended tests to be ordered by follow up provider: Lauren Benitez is a 79 year old woman presenting July 14 with diarrhea, fever, weakness and abdominal pain since July 10. She took imodium without relief. She has had episodes of diarrhea every 1-2 hours since July 13 morning. She checked her temperature at home and had 101 Jul 13 morning. She has not had any appetite for 1-2 days. When she drinks water, her stomach cramps, with relief after defecation.She has had a similar episode in the past and was diagnosed with diverticulitis. She has history of abdominal tumor removal and cholecysectomy. Last colonoscopy approximately 2014, uneventful. No chest pain, no SOB, no nausea/vomiting. In the ED she was mildly tachycardic HR 100. EKG without occlusion. CT abdomen/pelvis suggestive of colitis. CBC unremarkable. No lactate elevation. CMP notable for potassium 2.9, anion gap 2.9, BUN 44, creatinine 1.8 against baseline around 1.5. She was given fluid bolus, PO potassium and azithromycin. PMH includes HTN, HLD, depression, CKD stage 3 Overnight the patient's pain improved and her potassium was improved. She is able to tolerate PO intake. She can safely return home at this time. Home Meds and New Rx's Prescriptions: Continued simvastatin 40 MG tablet 40 mg PO .OTHER DAY omeprazole 20 MG capsule,delayed release(DR/EC) 20 mg PO DAILY cholecalciferol (vitamin D3) 1,000 UNIT tablet 1,000 unit PO BID calcium carbonate-vitamin D3 [Calcarb 600 With Vitamin D] 1 EACH tablet 1 ea PO BID Adults' Daily Formula (folic) 1 EACH tablet 1 tab-cap PO DAILY losartan [Cozaar] 50 MG tablet 50 mg PO DAILY Zyrtec 10 MG capsule 10 mg PO DAILY sertraline 100 MG tablet 1 tab PO DAILY atenolol 25 mg tablet 25 mg PO DAILY rosuvastatin [Crestor] 5 mg tablet 5 mg PO DAILY Discharge Instructions Instructions: Colitis (DC) Stand Alone Forms: Portal Information, Nursing Discharge Form Referrals: Darlin Puckett PA [Primary Care Provider, Medicine] Referral Note: Your pcp will reach out with a follow up appointment, if you do not hear from them, please reach out. Activity:: Activity as Tolerated Equipment/Supplies:: No Equipment Needed Diet:: As Tolerated Discharge Orders Discharge Orders: Discharge Order (Routine); Ordered 07/15/25 Ordered By: Jayant Fitzpatrick Discharge Data Discharge Date/Time-TO BE ENTERED AT DEPARTURE: 07/15/25 12:59 DS: Summary Time Spent with Patient providing and/or coordinating discharge services: Less than 30 minutes Status at Discharge Functional status at discharge: independent ambulation Overall status at discharge: patient is back to baseline Mental Status: mental status grossly normal Speech and Movement: speech and movement normal Mood: congruent mood Affect: normal affect Exam Narrative Exam Narrative: General: This is a pleasant woman in no distress HEENT: Normocephalic, atraumatic CV: RRR Resp: CTAB Abd: soft, diffusely tender MSK: voluntary motion x4 Neuro: awake, alert, no focal deficits Psych Mental Status: mental status grossly normal Speech and Movement: speech and movement normal Mood: congruent mood Affect: normal affect DS: Data Vitals/I&O Vitals and I&O: Vital Signs Temperature 36.6 C 07/15/25 11:07 Temperature Source Temporal Artery Scan 07/15/25 11:07 Pulse 66 07/15/25 11:07 Pulse Rhythm Regular 07/14/25 17:20 Respiratory Rate 17 07/15/25 11:07 Respiratory Effort Normal, Non-Labored 07/14/25 17:20 Respiratory Depth Normal 07/14/25 17:20 Respiratory Pattern Normal 07/14/25 17:20 Blood Pressure 113/63 07/15/25 11:07 Blood Pressure Mean 79 07/15/25 11:07 Blood Pressure Position Sitting 07/14/25 11:37 Pulse Oximetry 97 07/15/25 11:07 Oxygen Delivery Method Room Air 07/15/25 11:07 Oxygen Flow Rate 0 07/15/25 11:07 Pain Level 0 07/15/25 11:07 Intake & Output 07/14/25 07/15/25 07/15/25 23:59 11:59 23:59 Intake Total 1920 / 1920 1120 / 1120 Output Total 500 / 500 400 / 400 Balance 1420 / 1420 720 / 720 Weight 34.246 kg Intake: IV 1250 / 1250 1000 / 1000 Oral 670 / 670 120 / 120 Output: Urine 200 / 200 400 / 400 Stool 300 / 300 Other: Urine Color Yellow Urine Appearance Clear Urine Odor Normal Comment pt voids to toilet. Stool Size Small Small Stool Characteristics Liquid Soft Liquid Data Completed and Pending Pending Labs at Discharge: 07/14/25 07/14/25 07/14/25 10:50 12:45 13:12 WBC 6.69 RBC 4.78 Hgb 13.8 Hct 40.2 MCV 84 MCH 28.9 MCHC 34.3 RDW 11.9 Plt Count 218 MPV 9.4 Immature Gran % 0.3 Neutrophils % 74.4 Lymphocytes % 12.3 Monocytes % 12.6 Eosinophils % 0.0 Basophils % 0.4 Nucleated RBC % 0.0 Absolute Neutrophils 4.98 Absolute Lymphocytes 0.82 L Absolute Monocytes 0.84 H Absolute Eosinophils 0.00 Absolute Basophils 0.03 VBG Lactate 1.1 Sodium 136 Potassium 2.9 L Chloride 99 Carbon Dioxide 23.9 Anion Gap 12.9 H BUN 44 H Creatinine 1.8 H Est GFR (CKD-EPI 2020) 27.62 Glucose 88 Calcium 9.2 Magnesium 2.2 Total Bilirubin 0.60 AST 38 H ALT 47 Alkaline Phosphatase 162 H Total Protein 7.8 Albumin 4.5 Urine Color Urine Clarity Urine pH Ur Specific [place] Urine Protein Urine Ketones Urine Blood Urine Nitrite Urine Bilirubin Urine Urobilinogen Ur Leukocyte Esterase Urine RBC Urine WBC Ur Epithelial Cells Urine Crystals Urine Bacteria Urine Casts Urine Mucus Ur Culture Indicated? Urine Glucose Stool Campylobacter PCR Stl C.difficile Tox PCR Negative Stool Salmonella PCR Stool Shigella PCR Shiga Toxin (PCR) 1107/14/25 07/15/25 21:56 22:50 05:58 WBC RBC Hgb Hct MCV MCH MCHC RDW Plt Count MPV Immature Gran % Neutrophils % Lymphocytes % Monocytes % Eosinophils % Basophils % Nucleated RBC % Absolute Neutrophils Absolute Lymphocytes Absolute Monocytes Absolute Eosinophils Absolute Basophils VBG Lactate Sodium 139 Potassium 3.5 Chloride 108 H Carbon Dioxide 22.2 Anion Gap 8.8 BUN 32 H Creatinine 1.3 H Est GFR (CKD-EPI 2020) 39.09 Glucose 81 Calcium 8.1 L Magnesium 1.9 Total Bilirubin 0.30 AST 23 ALT 29 Alkaline Phosphatase 112 Total Protein 5.9 Albumin 3.3 L Urine Color Yellow Urine Clarity Clear Urine pH 5.5 Ur Specific [place] 1.010 Urine Protein Negative Urine Ketones Negative Urine Blood Trace-lysed H Urine Nitrite Negative Urine Bilirubin Negative Urine Urobilinogen 0.2 Ur Leukocyte Esterase Small H Urine RBC 3-5 H Urine WBC 10-20 H Ur Epithelial Cells Few Urine Crystals Negative Urine Bacteria Moderate Urine Casts Negative Urine Mucus Negative Ur Culture Indicated? 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 Surgical History Ligation of fallopian tube Fracture, Open Treatment (09/05/12) ORIF left distal radius and ulnar styloid fractures Fracture, Closed Treatment (08/20/11) left distal radius and ulnar styloid fracture closed reduction and cast application Colonoscopy - MAC (09/09/17) Cholecystectomy Appendectomy Social History Smoking/Tobacco Use Status: Former Tobacco Use Smoking risk assessment performed?: Yes Alcohol Intake: never Drug use: Never Housing: house Do you feel safe at home: Yes Do you feel safe in your relationship?: Yes Time Spent with Patient Time Spent with Patient: <45 minutes Time was spent: preparing to see the patient(eg.review tests), obtaining and/or reviewing separately otained hiistory, ordering medications,tests, procedures, referring, communicating with other health group care worker, indepentently interpreting results, counseling the patient and care coordination
--- NOTE | 2025-07-15 12:38 | PDOC.CMDIS ---
Date of service: 07/15/25 Time of Service: 12:39 LACE Index Scoring Tool Questions: Length of Stay (in days): 1 Was the patient admitted via the E.D.?: Yes E.D. Visits: 1 Answers: Total Score: 5 Risk of Readmission: Low Risk Care Management Discharge Plan Reason for Hospitalization: hypokalemia Discharge Plan: Lauren is being discharged home today with no new services indicated. It is recommended she follow up with her community providers, palliative care and discharge plan of care. She will transport home via private vehicle. Patient/Family Education Needs: Review of discharge instructions, activity, limitations, and plan of care. Discuss ask me three.
[2025-07-15 20:55] LABS: Campylobacter PCR Negative (Negative); Shiga Toxin PCR Negative (Negative); Shigella/Enteroinvasive Ecoli Negative (Negative)
--- NOTE | 2025-07-20 09:42 | ED.FU.B_ITS ---
Date of service: 07/20/25 Time of Service: 09:42 Follow Up Plan: This patient had a positive Salmonella stool PCR test returned. I called the patient at home. She was feeling improved. She had had no fevers and no diarrhea in several days. She had been in touch with the primary care office. Given that she is no longer having symptoms and is feeling improved I felt that the risks of antibiotics outweighed the benefits. I did advise patient that she should have a low threshold to return to the emergency department if she developed abdominal pain fevers or recurrent diarrhea. She understood her return indications and will plan on following up with her primary care provider. 1:41 PM I had initially received notification concerning this patient's abnormal results from Brayan from the [facility] branch of the [facility] public health department. I left him a message.
== END 2025-07-15 12:59 | disposition home or self-care (01) ==
LOC: ER 16:08 → MS 17:18
PROVIDERS: Family Medicine; Admitting Provider Family Medicine; Emergency Provider General Practice; PCP Physician Assistant Medical; Responsible Provider Family Medicine; Visit Provider Family Medicine
DX: K52.9 Noninfective gastroenteritis and colitis, unspecified (principal); E87.6 Hypokalemia; E78.5 Hyperlipidemia, unspecified; F32.A Depression, unspecified; R50.9 Fever, unspecified; R53.1 Weakness; R10.9 Unspecified abdominal pain; I12.9 Hypertensive chronic kidney disease with stage 1 through stage 4 chronic kidney disease, or unspecified chronic kidney disease; N18.30 Chronic kidney disease, stage 3 unspecified; E86.0 Dehydration; K21.9 Gastro-esophageal reflux disease without esophagitis; M81.0 Age-related osteoporosis without current pathological fracture; M17.0 Bilateral primary osteoarthritis of knee; Z79.899 Other long term (current) drug therapy
CPT/HCPCS: 00123; 36415; 80053; 87505; 93005; 96361; 96365; 99285; 74177; 81003; 81015; 83605; 83735; 85025; 87086; 93010; 99222; 99238; G0378; J0456; J3490